=== PATIENT | female | born 1985 | race Caucasian/White ===

== ENCOUNTER 2022-09-11 11:01 | Outpatient (REF) | payer MEDICAID, SELFPAY ==
--- NOTE | ~2022-09-11 | XR_ITS ---
EXAMINATION: XR SHOULDER, LEFT CLINICAL INFORMATION: Pain COMPARISON: None TECHNIQUE: AP external rotation, Grashey, scapular Y, and axillary views of the left shoulder. FINDINGS: Bone alignment is normal. No fracture or dislocation. Normal glenohumeral joint. Arthritis at the acromioclavicular joint. Normal soft tissues. XR/XR shoulder LT min 2V IMPRESSION: Arthritis at the acromial clavicular joint.
== END 2022-09-11 11:02 | disposition home or self-care (01) ==
LOC: HO.XRAY 11:01
PROVIDERS: PCP Family Medicine; Visit Provider Family Medicine
DX: M25.512 Pain in left shoulder (principal)
CPT/HCPCS: 73030

== ENCOUNTER 2023-05-26 16:17 | Outpatient (REF) | payer MEDICAID, SELFPAY ==
[2023-05-27 02:25] LABS: Alanine Aminotransferase 36 U/L (0-31); Albumin Level 4.4 g/dL (3.5-5.0); Alkaline Phosphatase 100 U/L (39-117); Aspartate Amino Transferase 28 U/L (5-31); Bilirubin Direct 0.1 mg/dL (0.0-0.5); Bilirubin Total 0.4 mg/dL (0.0-1.0); Total Protein 7.1 g/dL (6.5-8.0)
== END 2023-05-26 16:18 | disposition home or self-care (01) ==
LOC: HO.CHCLDS 16:17
PROVIDERS: Visit Provider Internal Medicine
DX: R79.89 Other specified abnormal findings of blood chemistry (principal)
CPT/HCPCS: 36415; 80076

== ENCOUNTER 2023-07-08 10:26 | Outpatient (REF) | payer MEDICAID, SELFPAY ==
[2023-07-08 14:55] LABS: MANUAL DIFF FLAG NO
[2023-07-08 15:10] LABS: Anion Gap 11 (12-20); Basophils Absolute Auto 0.1 X10*3/uL (0.0-0.2); Basophils Percent Auto 1.2 % (0-2); Blood Urea Nitrogen 12 mg/dL (9-16); Calcium 9.5 mg/dL (8.4-10.2); Carbon Dioxide 23 mmol/L (22-29); Chloride 109 mmol/L (96-108); Eosinophils Absolute Auto 0.5 X10*3/uL (0.0-0.4); Eosinophils Percent Auto 5.9 % (0-4); Estimated Glomerular Filt Rate > 60; Glucose Fasting 73 mg/dL (60-99); Hematocrit 40.1 % (37.0-47.0); Hemoglobin 13.4 g/dl (12.0-16.0); Imm Gran Abs Auto 0.01 X10*3/uL (0.00-0.03); Imm Gran Pct Auto 0.1 % (0.0-0.4); Lymphocytes Absolute Auto 3.5 X10*3/uL (1.2-4.9); Mean Corpuscular HGB Conc 33.4 g/dl (31.0-35.0); Mean Corpuscular Hemoglobin 28.9 pg (27.0-33.0); Mean Corpuscular Volume 86.4 fL (80.0-98.0); Mean Platelet Volume 10.2 fL (9.4-12.3); Monocytes Absolute Auto 0.8 X10*3/uL (0.1-1.2); Neutrophils Absolute Auto 3.7 x10*3/uL (2.0-8.3); Neutrophils Percent Auto 42.8 % (45-73); Platelet Count 294 X10*3/uL (160-400); Potassium 3.5 mmol/L (3.3-5.1); Red Blood Count 4.64 X10*6/uL (4.20-5.50); Sodium 139 mmol/L (135-145); White Blood Count 8.6 X10*3/uL (4.8-10.8)
[2023-07-10 15:48] LABS: TS Negative Control Passed; TS Panel A 0; TS Panel B 4; TS Positive Control Passed; TSpotTB Negative (Negative)
== END 2023-07-08 10:27 | disposition home or self-care (01) ==
LOC: HO.CHCLDS 10:26
PROVIDERS: Visit Provider Internal Medicine
DX: Z11.1 Encounter for screening for respiratory tuberculosis (principal); L40.9 Psoriasis, unspecified
CPT/HCPCS: 36415; 80048; 85025; 86481

== ENCOUNTER 2023-08-08 10:36 | Outpatient (REF) | payer MEDICAID, SELFPAY ==
[2023-08-08 15:10] LABS: Cholesterol 209 mg/dL (<200); HDL Cholesterol 36 mg/dL (>40); LDL Cholesterol Calculated 158 mg/dL (<100); Triglycerides 77 mg/dL (<150)
[2023-08-09 03:57] LABS: HIV AB/AG Nonreactive (Nonreactive); HIV Num 1 0.04 S/CO (0.00-0.99); ~HepC Num1 0.04 S/CO (0.00-0.79); ~Hepatitis C Antibody Nonreactive (Nonreactive)
== END 2023-08-08 10:37 | disposition home or self-care (01) ==
LOC: HO.CHCLDS 10:36
PROVIDERS: Visit Provider Family Medicine
DX: E78.2 Mixed hyperlipidemia (principal)
CPT/HCPCS: 36415; 80061; 86803; 87389

== ENCOUNTER 2023-08-12 08:53 | Outpatient (REF) | payer MEDICAID, SELFPAY ==
--- NOTE | ~2023-08-12 | XR_ITS ---
EXAMINATION: XR LUMBOSACRAL SPINE CLINICAL INFORMATION: Lumbar back pain. COMPARISON: None available. TECHNIQUE: Three views of the lumbosacral spine. FINDINGS: Surgical hardware with interdisc spacer at L5-S1. Hardware appears intact. Facet arthritis in the lower lumbar spine. Surgical clips overlie the sacrum. Moderate spondylosis in the lower lumbar spine with moderate loss of disc space height at L3-L4 and L4-L5. Straightening of the normal lumbar lordosis. XR/XR lumbar spine 2-3V IMPRESSION: 1. Surgical hardware with interdisc spacer at L5-S1. Hardware appears intact. 2. Moderate degenerative changes at L3-L4 and L4-L5.
== END 2023-08-12 08:54 | disposition home or self-care (01) ==
LOC: HO.XRAY 08:53
PROVIDERS: PCP Family Medicine; Visit Provider Family Medicine
DX: M54.50 Low back pain, unspecified (principal)
CPT/HCPCS: 72100

== ENCOUNTER 2024-02-25 15:22 | Outpatient (REF) | payer MEDICAID, SELFPAY ==
--- NOTE | ~2024-02-25 | US_ITS ---
EXAMINATION: US PELVIS CLINICAL INFORMATION: 38-year-old woman with heavy periods. COMPARISON: None available. TECHNIQUE: Ultrasound of the pelvis is performed using both transabdominal and transvaginal transducers along with Doppler. Transvaginal imaging is performed due to inadequate visualization transabdominally. FINDINGS: Uterus: The uterus is anteverted and measures 7.2 x 4.4 x 5.3 cm. Heterogeneous uterus without discrete mass. The endometrial stripe measures 6 mm in thickness. Adnexa: The right ovary measures 2.7 x 2.0 x 2.4 cm, volume 6.7 mL. The left ovary measures 3.6 x 2.2 x 3.4 cm, volume 14 mL. Simple follicles are seen bilaterally. Normal spectral Doppler in both ovaries. US/US pelvic and transvaginal IMPRESSION: Heterogeneous uterus could represent underlying fibroid disease though no distinct measurable fibroid is seen. The endometrial stripe measures 6 mm.
== END 2024-02-25 15:23 | disposition home or self-care (01) ==
LOC: HO.HMGCX 15:22
PROVIDERS: PCP Family Medicine; Visit Provider Family Medicine
DX: N93.9 Abnormal uterine and vaginal bleeding, unspecified (principal)
CPT/HCPCS: 76830; 76856

== ENCOUNTER 2024-09-21 13:03 | Outpatient (AMB) | payer MEDICAID, SELFPAY ==
--- NOTE | 2024-09-21 13:06 | MHC.OFFVIS ---
Vital Signs 09/21/24 13:13 Height 5 ft 3 in Weight 131 lb BMI 23.2 BP 131/64 Blood Pressure Location Lt brachial Position Sitting Pulse 101 H Intake Visit Reasons: Lipoma left upper extremity Intake Note: Patient is seen in office for evaluation of a subcatenous nodule of the left elbow. 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 This has been present for several years and is now increasing in size is associated with a 2nd lesion just adjacent to the 1st. This is located in an area that frequently gets hit and becomes uncomfortable. She denies any bleeding or discharge from the site. The patient requests excision of this lesion. She denies a previous history of lipomas. [facility] Surgical History History of rhinoplasty History of back surgery Social History Alcohol intake: never Patient Tobacco Use Status: Current everyday Tobacco user Review of Systems Const All systems reviewed & are unremarkable except as noted in HPI and below Physical Exam Vital Signs: Last Vital Signs Pulse 101 H 09/21/24 13:13 BP 131/64 09/21/24 13:13 BMI result Body Mass Index 23.2 Const General: comfortable Nutritional Appearance: well nourished Orientation/consciousness: patient oriented x3 Resp Effort & Inspection: normal respiratory effort, no audible wheezes, no cough and no respiratory distress Skin Other: Warm, dry, no rash Neuro General: patient oriented x3 Extrem General: Yes no clubbing, cyanosis or edema Elbow/forearm/wrist images: 1. 2 cm soft tissue mass consistent with lipoma 2. 1.5 cm soft tissue mass consistent with lipoma Assessment & Plan Assessment & Plan (1) Lipoma of left upper extremity: Code(s): D17.22 - Benign lipomatous neoplasm of skin and subcutaneous tissue of left arm Category: Medical Plan 39-year-old female patient presenting with a soft tissue mass located in the left forearm just below the elbow. There is a 2nd lesion just adjacent to this which also feels like a lipoma. Patient occasionally has discomfort associated with the lipoma therefore is requesting excision. I recommended an excision under local anesthesia as an office based procedure. After discussion of the procedure, risks, and alternatives, she consents to the procedure which will be scheduled at her convenience. Coding Level of Care Code New Pt Level 4 (98731) Diagnoses Lipoma of left upper extremity D17.22
[2024-09-21 13:13] VITALS: BP 131/64; PULSE 101; BMI 23.2
== END 2024-09-21 13:20 | disposition home or self-care (01) ==
PROVIDERS: PCP Family Medicine; Visit Provider Surgery
DX: D17.22 Benign lipomatous neoplasm of skin and subcutaneous tissue of left arm (principal)
CPT/HCPCS: 99204

== ENCOUNTER → 2024-09-21 13:03 | Outpatient (BNVA) | payer MEDICAID, SELFPAY | PROVIDERS: PCP Family Medicine; Visit Provider Surgery | DX: D17.22 Benign lipomatous neoplasm of skin and subcutaneous tissue of left arm (principal) | CPT/HCPCS: 99202 ==

== ENCOUNTER 2024-09-30 10:58 | Outpatient (REF) | payer MEDICAID, SELFPAY | END 2024-09-30 10:59 | disposition home or self-care (01) | LOC: HO.LNP 10:58 | PROVIDERS: PCP Family Medicine; Visit Provider Surgery | DX: L72.0 Epidermal cyst (principal) | CPT/HCPCS: 11402; 88304 ==

== ENCOUNTER 2024-09-30 10:58 | Outpatient (AMB) | payer MEDICAID, SELFPAY ==
--- NOTE | 2024-09-30 11:09 | MHC.OFFVIS ---
Intake Visit Reasons: Excision Lipoma left upper extremity Intake Note: Patient is for office procedure, excision of lipoma of the left upper extremity. Pt c/o:n *Need s/p* Nursing Home Administrator Required: No Accompanied by: Self / Same As Patient Allergies No Known Allergies Allergy (Mild, Unverified 09/30/24 11:09) NONE HPI Comments Details: Patient returns for excision of the lesions of the left elbow. She denies any changes since her last visit. [facility] Surgical History History of rhinoplasty History of back surgery Social History Alcohol intake: never Patient Tobacco Use Status: Current everyday Tobacco user Physical Exam Extrem Other: Left elbow with a 2 cm and 1.5 cm soft tissue mass, possibly a lipoma or cyst. Office Procedures Excision Details: Preoperative diagnosis: Lipoma x2 left elbow Postoperative diagnosis: Epidermal inclusion cyst left elbow x2 Procedure: Excision of cyst left elbow x2 Surgeon: Urban Diaz MD Obstetrics Technician: None Anesthesia: Lidocaine 1% with epinephrine Indications for procedure: 39-year-old female with a gradually enlarging soft tissue mass x2 below the left elbow Operative findings: 2 cm and 1.5 cm epidermal inclusion cyst left elbow Specimen: Epidermal inclusion cyst left elbow x2 Estimated blood loss: Less than 1 mL Complications: None Procedure details: The patient was brought to the procedure room and placed in a supine position. The site of surgery was confirmed by the patient in the left elbow. After assuring informed consent the patient was placed in a right lateral decubitus position. The left arm was prepped with ChloraPrep and draped in a sterile fashion. Local anesthesia was then infiltrated in the longitudinal fashion directly over the palpable mass. Incision was then made with a 15 blade and carried out through subcutaneous tissue up to the wall of the cyst. Beginning with the larger more proximal cyst, sharp dissection was used using a Metzenbaum scissors to dissect this lesion from the surrounding subcutaneous tissue. A 2nd cyst located slightly distal measuring 1.5 cm was also excised again using the Metzenbaum scissors. Both lesions were passed off the table and sent to pathology for further examination. Skin was then closed using interrupted 3-0 nylon sutures. Sterile dressings consisting of a 2 x 2 gauze and Tegaderm were then applied. The patient tolerated the procedure well. She was discharged to home in stable condition. 86227-fqhma/arms/legs 1.1-2cm Procedure code (CPT) selection complete Assessment & Plan Assessment & Plan (1) Epidermal inclusion cyst: Code(s): L72.0 - Epidermal cyst Category: Medical Plan 39-year-old female patient status post excision of an epidermal inclusion cyst x2 of the left elbow 1 measuring 1.5 cm in his 2nd measuring 2 cm in diameter. She tolerated the procedure well and will return in 1 week for suture removal. Coding Level of Care Code Procedure Only Diagnoses Epidermal inclusion cyst L72.0 CPT Codes Trunk/Arms/Legs - CPT: 42272-ruckj/arms/legs 1.1-2cm ([id number])
== END 2024-09-30 11:43 | disposition home or self-care (01) ==
PROVIDERS: PCP Family Medicine; Visit Provider Surgery
DX: L72.0 Epidermal cyst (principal)
CPT/HCPCS: 11402

== ENCOUNTER 2024-10-05 09:58 | Outpatient (AMB) | payer MEDICAID, SELFPAY ==
--- NOTE | 2024-10-05 10:13 | A.OFFVIS_ITS ---
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 Patient reports she has a hard cyst on the volar aspect of her 5th digit. Her PCP prescribed her a liquid to remove this she states but the root being still inside is her concern. She states her finger is starting to slant due to it and she is unable to straighten out the finger either. Denies numbness and tingling. 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 The patient states that during that time, she was using a hammer, and struck the distal part of her left small finger. Patient states that since that time, she has been unable to extend fully at the DIP joint of the left small finger. Patient also reports that she has a wart on this finger that she is being treated for by her primary care provider. Denies any numbness or tingling in the left upper extremity. No other acute complaints or concerns at this time. [facility] Surgical History History of rhinoplasty History of back surgery Social History (Updated 10/05/24 @ 10:20 by KELLEY Dale) Alcohol intake: never Patient Tobacco Use Status: Current everyday Tobacco user Tobacco use type: Cigarette Current occupational status: unemployed Review of Systems Const All systems reviewed & are unremarkable except as noted in HPI and below Physical Exam Vital Signs: BMI result Body Mass Index 23.2 Extrem Other: Patient is alert, oriented, and in no acute distress. Neuro: Normal sensation of the tips of all digits of the left hand at this time Vascular: Cap refill brisk Pain: Patient reports some tenderness to palpation about the wart noted on the volar aspect of the middle phalanx of the left small finger No pain with range of motion ROM: Patient was unable to extend the DIP joint of the left small finger fully in the office today Patient is able to flex and extend all other digits of the left hand fully and without difficulty Skin: No lacerations or abrasions. General: No ecchymosis, erythema, or evidence of infection. Psych: Appears grossly normal Affect normal Attitude cooperative Assessment & Plan Assessment & Plan (1) Mallet finger of left hand: Code(s): M20.012 - Mallet finger of left finger(s) Category: Medical Plan 1. Mallet deformity of the left small finger Patient was discussed with Dr. Dye, and a collaborative treatment plan was formed: Due to the age of the patient's injury, the patient should be seen and evaluated by Dr. Dye at a full surgical consult appointment for discussion of treatment options available Patient was amenable to this plan In the meantime, patient was advised that she should continue with conservative pain management measures for her pain that she is experiencing Patient will follow-up for next available appointment for surgical consult with Dr. Dye, sooner with any acute concerns Coding Level of Care Code New Pt Level 3 (90666) Diagnoses Mallet finger of left hand M20.012
[2024-10-05 10:19] VITALS: BMI 23.2
== END 2024-10-05 10:40 | disposition home or self-care (01) ==
PROVIDERS: PCP Family Medicine
DX: M20.012 Mallet finger of left finger(s) (principal)
CPT/HCPCS: 99203

== ENCOUNTER → 2024-10-05 09:58 | Outpatient (BNVA) | payer MEDICAID, SELFPAY | PROVIDERS: PCP Family Medicine | DX: M20.012 Mallet finger of left finger(s) (principal) | CPT/HCPCS: 99212 ==

== ENCOUNTER 2024-10-12 09:37 | Outpatient (AMB) | payer MEDICAID, SELFPAY ==
--- NOTE | 2024-10-12 09:42 | MHC.OFFVIS ---
Vital Signs 10/12/24 09:43 Height 5 ft 3 in Weight 131 lb 0.014 oz BMI 23.2 Intake Visit Reasons: s/p Excision Lipoma left upper extremity Intake Note: This patient presents for follow-up assessment status post excision lipoma left upper extremity. Pt c/o; reports no complaints at this time. 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 She tolerated the procedure well and denies any ongoing symptoms. [facility] Surgical History History of rhinoplasty History of back surgery Social History (Updated 10/05/24 @ 10:20 by KELLEY Dale) Alcohol intake: never Patient Tobacco Use Status: Current everyday Tobacco user Tobacco use type: Cigarette Current occupational status: unemployed Physical Exam Vital Signs: BMI result Body Mass Index 23.2 Extrem Other: Incision left elbow is clean, dry, and intact without redness or discharge. Sutures removed and wounds healed. Assessment & Plan Assessment & Plan (1) Epidermal inclusion cyst: Code(s): L72.0 - Epidermal cyst Category: Medical Plan Patient returns following excision of an epidermal inclusion cyst x2 of the left elbow. She tolerated the procedure well nicely. She should follow up as needed. Coding Level of Care Code Global (58479) Diagnoses Epidermal inclusion cyst L72.0
[2024-10-12 09:43] VITALS: BMI 23.2
== END 2024-10-12 09:59 | disposition home or self-care (01) ==
PROVIDERS: PCP Family Medicine; Visit Provider Surgery
DX: L72.0 Epidermal cyst (principal)
CPT/HCPCS: 99024

== ENCOUNTER → 2024-10-12 09:37 | Outpatient (BNVA) | payer MEDICAID, SELFPAY | PROVIDERS: PCP Family Medicine; Visit Provider Surgery | DX: Z48.817 Encounter for surgical aftercare following surgery on the skin and subcutaneous tissue (principal); Z98.890 Other specified postprocedural states | CPT/HCPCS: 99212 ==

== ENCOUNTER 2024-11-17 09:25 | Outpatient (REF) | payer MEDICAID, SELFPAY ==
--- NOTE | ~2024-11-17 | XR_ITS ---
EXAMINATION: XR HAND, LEFT CLINICAL INFORMATION: M79.642 - Pain in left hand COMPARISON: None available. TECHNIQUE: PA, lateral, and oblique views of the left hand. FINDINGS: The bones and soft tissues are normal. No fracture. Alignment is anatomic. Joint spaces are maintained. No erosions or soft tissue calcifications. XR/XR hand LT min 3V IMPRESSION: Unremarkable left hand exam. Electronically signed by: Josue Olivier MD 11/22/2024 09:17 AM RASHIDA
--- OUTSIDE RECORDS SUMMARY | 2024-11-19 09:52 | XMS_ITS | Clinical Summary ---
Author Organization [employer] Address [address] [facility] 7t [place] [address] Care Team Providers Care Supervisor Publications Production Name Role Phone Erin Wilcox MD Primary Care Provider Allergies No known active allergies Medications betamethasone [...] fibrous uterus on US, has referral for PSYCHIATRIC SECRETARY in place, pending appt. Reports periods are less heavy with depo. Has upcoming appt with nurse. Future Appointments Date Time Provider Department Center 05/11/2024 1:00 PM [facility] NURSE [facility] Lumbar back pain 08/08/2023 Assessment & [...] Type Department Care Team Description 10/01/2024 Telephone appbackr Management [address] [place] [address] Jane Hassan MD 09/16/2024 Telephone [facility] MED & PEDS [address] [place], [place] [phone] Erin Wilcox MD PA Stelara Approved 09/14/2024 Orders Only [facility] MED & PEDS [address] [place], [place] [phone] Jane Hassan MD Psoriasis (Primary Dx) 09/13/2024 Telephone [place] [facility] [address] [place] [address] Erin Wilcox MD 09/07/2024 3:20 PM EST Office Visit [facility] MED & PEDS [address] [place], [place] [phone] Jane Hassan MD Callus (Primary Dx); Lipoma of left upper extremity; Trigger little finger of left hand 09/07/2024 Travel 09/06/2024 Telephone [facility] MED & PEDS [address] [place], [place] [phone] Erin Wilcox MD from Last 3 Months [...] Description 11/30/2024 9:15 AM EST Office Visit [facility] CHC MED & PEDS [address] [place] [address] Jane Hassan MD 505 [place] [address] Health Maintenance Due Date Last Done Comments [...] 6 AM EST 09/30/2024 12:03 PM EST [facility] LABS - 10/01/2024 5:00 PM EST ----- ------- Name: Selam Douglass ?Age/Sex: 39/F ? : 1985 Unit#: [id number] ?? Attend Dr: Urban Diaz MD ?Re09/30/24 ?Status: DEP REF ? Location: HO.LNP ?Disch: ? ----- ------- SPEC : [id number] ? RECD: 09/30/24 ? STATUS: ??SOUT ? REQ NUM: [id number] ? MARS: 09/30/24114 ? SUBM DR: Urban [...] containing white-yellow cheesy and keratotic material. ??A financial representative section from each is submitted in a cassette labeled A1. CEDS Copies To: ?? Urban Diaz MD ?? [facility] ?? [address] ?? [place] [id number] ?? [phone] ?? Erin Wilcox MD ?? [address] ?? [place] ?? [phone] ? CONTINUED ON NEXT PAGE ----- ------- Name: Selam Douglass ?Age/Sex: 39/F ? : 1985 Unit#: [id number] ?? Attend Dr: Urban Diaz MD ?Re09/30/24 ?Status: DEP REF ? Location: HO.LNP ?Disch: ? ----- ------- SPEC : [id number] ? RECD: 09/30/24-3 ? STATUS: ??SOUT ? REQ NUM: [id number] ? MARS: 09/30/24-1146 ? SUBM DR: Urban Diaz MD ? ENTERED: ??09/30/24-3 ?SP TYPE: Surgical ? OTHR DR: Erin Wilcox MD ? ORDERED: ??Gross Micro L3 ? ----- ------- Signed (signature on file) Surjit Galeano MD 10/01/24 5237 ? ----- ------- ? END OF REPORT ? us Generic External Data Provider LAB CYTOLOGY SARWATE RABLES Final Result Performing Organization Address [facility] Co de Phone Number [facility] [address] [place] [phone] * Hepatitis C Ab (08/08/2023 10:39 AM EDT) Pathologist [facility] Hepatitis C Antibody Nonreactive Nonreactive [facility] Comment:Antibodies to HCV no t detected; does not exclude early acuteHCV infection. Blood Venous blood specimen / Unknown 08/08/2023 10:39 AM EDT 08/08/2023 2:46 PM EDT us Erin Wilcox MD LAB BLOOD ORDERABLES Final Re sult Performing Organization Address [facility] de Phone Number [facility] [address] [place] [phone] * HIV Ab/Ag ([facility]) (08/08/2023 10:39 AM EDT) Pathologist [facility] HIV AB/AG Nonreactive Nonreactive [facility] Comment:HIV-1 p24 Ag and/or HIV-1/HIV-2 Ab not detected.A test result that is nonreactive does not exclude thepossibility of exposure to or infection with HIV-1 and/orHIV-2. Nonreactive results in this assay for individualswith prior exposure to HIV-1 and/or HIV-2 may be due toantigen and antibody levels that are below the limit ofdetection of this assay.The [employer] HIV Ag/Ab Combo assay result andsupplemental assay results should be interpreted inconjunction with the patient's clinical presentation,history and other laboratory results. If the results areinconsistent with clinical evidence, additional testing issuggested to confirm the result. 08/08/2023 10:3 9 AM EDT 08/08/2023 2:46 PM EDT us Erin Wilcox MD LAB BLOOD ORDERABLES Final Re sult Performing Organization Address [facility] Co de Phone Number [facility] [address] [place] [phone] * (ABNORMAL) Lipid Panel, Standard (08/08/2023 10:39 AM EDT) Triglycerides 77 <150 mg/dL [facility] Comment:Desirable Triglyceri de: less than 150 mg/dLBorderline High Triglyceride 150-199 mg/dLHigh Triglyceride: 200-499 mg/dLVery High Triglyceride: greater than or equal to 5OO mg/dL Cholesterol 209(H) <200 mg/dL [facility] Comment:Desirable Cholestero l: less than 200 mg/dLBorderline High Cholesterol: 200-239 mg/dLHigh Cholesterol: greater than 239 mg/dL LDL Cholesterol Calculated 158(H) <100 mg/dL [facility] Comment:Desirable LDL: less than 100 mg/dLNear Optimal/Above Optimal LDL: 110- 129 mg/dLBorderline High LDL: 130-159 mg/dLHigh LDL: 160-189 mg/dLVery High LDL: greater than or equal to 190 mg/dL HDL Cholesterol 36(L) >40 mg/dL [facility] Comment:Desirable HDL: great er than 40 mg/dL Note: This HDL assay may give artificially low results in patients with liver disease. Blood Venous blood specimen / Unknown 08/08/2023 10:39 AM EDT 08/08/2023 2:46 PM EDT us Erin Wilcox MD LAB BLOOD ORDERABLES Final Re sult Performing Organization Address [facility]/ZIP Co de Phone Number [facility] [address] [place] [phone] * THINPREP TIS PAP AND HPV [...] with computer assisted technology. CONVERTED LEGACY LABS Carbonating Stone Cleaner : SEE COMMENT CONVERTED LEGACY LABS Comment: [place], CT(ASCP) CT screening location: [address] ??[phone] HPV nRNA E6/E7 Not Detected Not Detected [facility]VERT[facility]GAC[facility] LABS Comment: Methodology: Car Stower-Mediated Amplification This assay detects E6/E7 viral messenger RNA (mRNA) from 14 high-risk HPV types (16,18,31,33,35,39,45,51,52,56,58,59,66,68). ? Cervical sources are required for HPV testing. If a vaginal source from a patient who has had a total hysterectomy with removal of cervix was ?? submitted, please contact the testing laboratory for alternative testing options. ?? For additional information, please refer to http://education.Thanx/faq/AGG447l1 (This link if provided for information/ educational [...] Most Recently Relevant to Health Maintenance Insurance [facility] MEDICAID STAND ADULT * Guarantor: Selam Douglass Account Type Relation to Patient Date of Phone Billing Address Personal/Family Self [address] [place] Care Teams Supervisor Publications Production Relationship Specialty Start Date End Date Erin Wiclox MD [address] [place] [phone] PCP - General Family Medicine 07/31/22
--- OUTSIDE RECORDS SUMMARY | 2024-11-19 09:52 | XMS_ITS | Encounter Summary ---
Author Organization [facility] [employer] Address [address] [place] [address] 7t [place] [address] Care Team Providers Care Crop Ranch Hand Name Role Phone Erin Wilcox MD Primary Care Provider [phone] Encounter Details Date Type Department Care Team (Late Contact Info) Description 10/29/[address] [facility] ADULT DENTAL [address] [place], [place] [phone] Jaz Zhang DMD Social History Tobacco Use [...] Description 11/30/2024 9:15 AM EST Office Visit [facility] MED & PEDS [address] [place], [place] [phone] Jane Hassan MD 505 [place], [place] [phone] documented as of this encounter Visit Diagnoses Not on filedocumented in this encounter Additional Health Concerns Assessment Noted Time PHQ-9 Depression Total Score: 2 08/08/20 23 10:07 AM EDT documented as of this encounter Care Teams Crop Ranch Hand Relationship Specialty Start Date End Date Erin Wilcox MD [address] [place] [address] PCP - General Family Medicine 07/31/22 documented as of this encounter
--- OUTSIDE RECORDS SUMMARY | 2024-11-19 09:52 | XMS_ITS | Encounter Summary ---
Author Organization [facility] [employer] [facility] Address [address] [place] [address] 7 [place] [address] Care Team Providers Care Hydro Station Supervisor Name Role Phone Erin Wilcox MD Primary Care Provider [phone] Encounter Details Date Type Department Care Team (Late Contact Info) Description 07/18/2023 Abstract [facility] ADULT DENTAL [address] [place], [place] [phone] Sveta Avelar DDS [address] [place] [address] Social History Tobacco Use Types Packs/Day Years [...] Description 11/30/2024 9:15 AM EST Office Visit [facility] MED & PEDS [address] [place], [place] [phone] Jane Hassan MD [address] [place], [place] [phone] documented as of this encounter Visit Diagnoses Not on filedocumented in this encounter Care Teams Hydro Station Supervisor Relationship Specialty Start Date End Date Erin Wilcox MD [address] [place] [address] PCP - General Family Medicine 07/31/22 documented as of this encounter
--- OUTSIDE RECORDS SUMMARY | 2024-11-19 09:53 | XMS_ITS | Encounter Summary ---
Author Organization [employer] Address [address] [place] [address] 7t [place] [address] Care Team Providers Care Division Leader Name Role Phone Erin Wilcox MD Primary Care Provider [phone] Encounter Details Date Type Department Care Team (Latest Contact Info) Description 09/07/2019 Abstract [facility] CONVERSIONS Dental, Provider, DDS Social [...] Description 11/30/2024 9:15 AM EST Office Visit [facility] CHC MED & PEDS [address] [place] [address] Jane Hassan MD [address] [place] [address] documented as of this encounter Visit Diagnoses Not on filedocumented in this encounter Care Teams Division Leader Relationship Specialty Start Date End Date Erin Wilcox MD [address] [place] [address] PCP - General Family Medicine 07/31/22 documented as of this encounter
--- OUTSIDE RECORDS SUMMARY | 2024-11-19 09:53 | XMS_ITS | Encounter Summary ---
Author Organization [employer] Address [address] [place] [address] 7t [place] [address] Care Team Providers Care Ceo & Board Director Name Role Phone Erin Wilcox MD Primary Care Provider [phone] Encounter Details Date Type Department Care Team (Latest Contact Info) Description 07/31/2022 Abstract [facility] CONVERSIONS Dental, Provider, DDS Social [...] 9:15 AM EST Office Visit [facility] CHC MED & PEDS [address] [place] [address] Jane Hassan MD [address] [place] [address] documented as of this encounter Visit Diagnoses Not on filedocumented in this encounter Care Teams Ceo & Board Director Relationship Specialty Start Date End Date Erin Wilcox MD [address] [place] [address] PCP - General Family Medicine 07/31/22 documented as of this encounter
--- OUTSIDE RECORDS SUMMARY | 2024-11-19 09:53 | XMS_ITS | Encounter Summary ---
Author Organization [employer] Address [address] [place] [address] 7t [place] [address] Care Team Providers Care Bilingual Branch Manager Name Role Phone Erin Wilcox MD Primary Care Provider [phone] Encounter Details Date Type Department Care Team (Latest Contact Info) Description 08/07/2020 Abstract [facility] CONVERSIONS Dental, Provider, DDS Social [...] Description 11/30/2024 9:15 AM EST Office Visit [facility] CHC MED & PEDS [address] [place] [address] Jane Hassan MD [address] [place] [address] documented as of this encounter Visit Diagnoses Not on filedocumented in this encounter Care Teams Bilingual Branch Manager Relationship Specialty Start Date End Date Erin Wilcox MD [address] [place] [address] PCP - General Family Medicine 07/31/22 documented as of this encounter
--- OUTSIDE RECORDS SUMMARY | 2024-11-19 09:53 | XMS_ITS | Encounter Summary ---
Author Organization [employer] Address [address] [place] [address] 7t [place] [address] Care Team Providers Care Animal Shelter Supervisor Name Role Phone Erin Wilcox MD Primary Care Provider [phone] Encounter Details Date Type Department Care Team (Latest Contact Info) Description 07/25/2021 Abstract [facility] CONVERSIONS Dental, Provider, DDS Social History Tobacco [...] Description 11/30/2024 9:15 AM EST Office Visit [facility] CHC MED & PEDS [address] [place] [address] Jane Hassan MD [address] [place] [address] documented as of this encounter Visit Diagnoses Not on filedocumented in this encounter Care Teams Animal Shelter Supervisor Relationship Specialty Start Date End Date Erin Wilcox MD [address] [place] [address] PCP - General Family Medicine 07/31/22 documented as of this encounter
--- OUTSIDE RECORDS SUMMARY | 2024-11-19 09:53 | XMS_ITS | Encounter Summary ---
Author Organization [employer] Address [address] [facility] 7t [place] [address] Care Team Providers Care Provider Network Manager Name Role Phone Erin Wilcox MD Primary Care Provider [phone] Encounter Details Date Type Department Care Team (Late st Contact Info) Description 09/14/2024 Orders Only [facility] CHC MED & PEDS [address] [place], [place] [phone] Jane Hassan MD 505 [place], [place] [phone] Psoriasis (Primary Dx) Social History Tobacco Use [...] Description 11/30/2024 9:15 AM EST Office Visit [facility] MED & PEDS [address] [place], [place] [phone] Jane Hassan MD [address] [place], [place] [phone] Scheduled Orders Name Type Priority Associated Diagnoses [...] 6 AM EST 09/30/2024 12:03 PM EST [facility] LABS - 10/01/2024 5:00 PM EST ----- ------- Name: Selam Douglass ?Age/Sex: 39/F ? : 1985 Unit#: [id number] ?? Attend Dr: Urban Diaz MD ?Re09/30/24 ?Status: DEP REF ? Location: HO.LNP ?Disch: ? ----- ------- SPEC : [id number] ? RECD: 09/30/24-1203 ? STATUS: ??SOUT ? REQ NUM: [id number] ? MARS: 09/30/24-1146 ? SUBM DR: Urban [...] containing white-yellow cheesy and keratotic material. ??A disability representative section from each is submitted in a cassette labeled A1. CEDS Copies To: ?? Urban Diaz MD ?? [facility] General Surgeons ?? [address] ?? [place] [address] ?? [phone] ?? Erin Wilcox MD ?? [address] ?? [place] [address] ?? [phone] ? CONTINUED ON NEXT PAGE ----- ------- Name: Selam Douglass ?Age/Sex: 39/F ? : 1985 Unit#: [id number] ?? Attend Dr: Urban Diaz MD ?Re09/30/24 ?Status: DEP REF ? Location: HO.LNP ?Disch: ? ----- ------- SPEC : [id number] ? RECD: 09/30/24-1203 ? STATUS: ??SOUT ? REQ NUM: [id number] ? MARS: 09/30/24-1146 ? SUBM DR: Urban Diaz MD ? ENTERED: ??09/30/24-1213 ?SP TYPE: Surgical ? OTHR DR: Erin Wilcox MD ? ORDERED: ??Gross Micro L3 ? ----- ------- Signed (signature on file) Surjit Galeano MD 10/01/24 1700 ? ----- ------- ? END OF REPORT ? us Generic External Data Provider LAB CYTOLOGY MONTSE BURCIAGA Final Result [facility] [address] [place] [phone] documented in this encounter Visit Diagnoses Diagnosis Psoriasis- Primary Other psoriasis documented in this encounter Additional Health Concerns Assessment Noted Time PHQ-9 Depression Total Score: 2 08/08/20 23 10:07 AM EDT documented as of this encounter Care Teams Provider Network Manager Relationship Specialty Start Date End Date Erin Wilcox MD [address] [place] [address] PCP - General Family Medicine 07/31/22 documented as of this encounter
== END 2024-11-17 09:26 | disposition home or self-care (01) ==
LOC: HO.HOSX 09:25
PROVIDERS: Visit Provider Orthopaedic Surgery
DX: M79.642 Pain in left hand (principal); M20.012 Mallet finger of left finger(s); R22.32 Localized swelling, mass and lump, left upper limb
CPT/HCPCS: 73130; 99202

== ENCOUNTER 2024-11-17 09:49 | Outpatient (AMB) | payer MEDICAID, SELFPAY ==
[2024-11-17 10:15] VITALS: BMI 23.2
--- NOTE | 2024-11-17 10:15 | MHC.OFFVIS ---
Vital Signs 11/17/24 10:15 Height 5 ft 3 in Weight 131 lb BMI 23.2 Intake Visit Reasons: OV- L SF mallet, Surgical consult Intake Note: Selam 39 yr old right hand dominant female presents today for a surgical consult for her Mallet small finger of left hand. Last seen with Drake. Patient states she also has a cyst/wart that has increased in size for the last 3-4 yrs. Allergies No Known Allergies Allergy (Mild, Unverified 11/17/24 10:18) NONE HPI HPI OV- L SF mallet, Surgical consult: Details: Selam is a 39 year old right hand dominant woman who presents to discuss her left small finger mass. Her chief complaint today is of a cyst/wart/mass on the volar aspect of the left small finger, that has been bothering her for several years. She has been trying to have this removed with topical treatment. She has been seen by Dermatology for this, and she says they referred her here to discuss possible surgical intervention. She also says she struck the tip of her small finger while gardening, sometime in ~03/2024. Since that injury she has not been able to fully extend her small finger DIP joint. She complains of [ ]. 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 Review of Systems Const All systems reviewed & are unremarkable except as noted in HPI and below Physical Exam Vital Signs: BMI result Body Mass Index 23.2 Const General: cooperative, healthy appearing and no acute distress Orientation/consciousness: patient oriented x3 HEENT Head: Yes normocephalic and Yes atraumatic Eyes EOM: EOMs intact bilaterally Resp Effort & Inspection: normal respiratory effort and able to speak in complete sentences Cardio Jugular venous distension: no JVD Skin General skin exam: turgor normal Rashes: no rashes Neuro General: patient oriented x3 Extrem Other: Evaluation of Left Upper Extremity: The patient is alert, oriented, and in no acute distress Neuro: Median, Ulnar, Radial nerves motor and sensory intact and sensation is normal to the tips of all digits Vascular: Cap refill brisk ROM: She can bring all her fingers closed to a fist and back into extension She is limited in her small finger extension at the DIP joint, with an extensor lag of ~25 degrees. Passively reducible Skin: No lacerations or abrasions. General: No Ecchymosis. No Erythema or evidence of infection. There is a soft tissue mass on the volar surface at the middle phalanx level, measuring ~5mm in diameter. This is white, thickened, raised, and feels like it goes deep to the skin, and has a root of sorts. Radiographs: 3 views of the left hand, with attention to the small finger, were taken and viewed by me today in clinic. They show no fractures or dislocations. No foreign body, no bony masses or involvement of bone in the small finger Psych Appearance: grossly normal Affect: normal affect Attitude: cooperative Assessment & Plan Assessment & Plan (1) Mallet finger of left hand: Comment: SF Code(s): M20.012 - Mallet finger of left finger(s) Category: Medical (2) Mass of finger of left hand: Comment: SF Code(s): R22.32 - Localized swelling, mass and lump, left upper limb Category: Medical Plan Assessment & Plan: 1. Left small finger soft tissue mass ~5mm in diameter I educated her about this condition I discussed operative and non-operative treatment options She has found limited improvement with topical treatment given to her by Dermatology The patient would like to proceed with surgery The risks and benefits of operative treatment were discussed with the patient and the patient wishes to proceed with surgery. These risks include, but are not limited to risk of damage to blood vessels, nerves, tendons, infection, recurrence, incomplete relief of preoperative symptoms, persistent pain, possible need for further surgery and the risks associated with regional blocks and anesthesia. The plan is to take the patient to the operating room sometime in the next few weeks for the following procedures: 1. Left small finger mass excisional biopsy, under general All of the preoperative paperwork including the consent was reviewed today. All the patient's questions were answered. The patient understands that they will be contacted by our marine photographer soon to schedule this procedure She denies Diabetes, blood thinners, asthma, heart, lung, kidney issues 2. Left small finger tendinous mallet deformity From an injury in ~03/2024 I educated her about this condition I discussed operative and non-operative treatment options We will wait until she has recovered from her surgery before considering treatment options Scribed for Pat Dye MD by Kingsley Cuevas, medical practice administrator, on 11/17/24 at 10:30 AM, EST. Orders: Orders XR hand LT min 3V Today M79.642 - Pain in left hand Coding Level of Care Code New Pt Level 4 (57302) Diagnoses Mallet finger of left hand M20.012 Mass of finger of left hand R22.32
--- OUTSIDE RECORDS SUMMARY | 2024-11-17 10:35 | XMS_ITS | Clinical Summary ---
Author Organization [employer] Address [address] 7[address] [place] [address] Care Team Providers Care Airport Location Manager Name Role Phone Erin Wilcox MD Primary Care Provider [phone] Allergies No known active allergies Medications betamethasone dipropionate (Diprolene) 0.05 % ointment APPLY A THIN LAYER TO THE AFFECTED AREA(s) TWICE DAILY 09/10/20 22 Active calcipotriene (Dovonex) 0.005 % ointment APPLY A THIN LAYER TO THE AFFECTED AREA(s) DAILY, RUB IN gently AND completely 08/07/20 22 Active rosuvastatin (Crestor) 10 MG tabletIndications: Mixed hyperlipidemia TAKE ONE TABLET EVERY MORNING 90 tablet 1 05/08/20 23 Active triamcinolone (Kenalog) 0.1 % ointmentIndication s:Psoriasis Apply topically 2 times daily. 453.6 g 11 07/08/20 23 Active Otezla 30 MG tablet Take 30 mg by mouth every 12 (twelve) hours. 10/22/19 23 Active diclofenac (Cataflam) 50 MG tablet Take 1 tablet (50 mg) by mouth 3 times daily. 90 tablet 08/08/20 23 Active medroxyPROGESTERon e (Depo-Provera) 150 MG/ML injection Inject 1 mL (150 mg) into the shoulder, thigh, or buttocks every 3 (three) months. 1 mL 3 02/23/20 24 Active Multiple Vitamin (multivitamin) tablet Take 1 tablet by mouth Once per day. 90 tablet 3 02/23/20 24 Active Stelara injectionIndicatio ns:Psoriasis INJECT 45 MG SUBCUTANEOUSLY ON DAY 0 AND REPEAT ON DAY 30 0.5 mL 1 07/30/20 24 Active ustekinumab (Stelara) 45 MG/0.5ML injectionIndicatio ns:Psoriasis Inject 0.5 mL (45 mg) under the skin every 3 (three) months. 0.5 mL 3 07/30/20 Active salicylic acid-lactic acid 17 % external solutionIndication s:Callus Apply topically Once per day. 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 Reports periods are less heavy with depo. Has upcoming appt with nurse. Future Appointments Date Time Provider Department Center 05/11/2024 1:[address] [facility] [place] NURSE [facility] Lumbar back pain 08/08/2023 Assessment & Plan (08/08/2023 10:23 AM EDT): Patient that presented visit with complaints of lower back pain will be sent for Lumbar X-Rays. Will be prescribing Diclofenac to control and moderate the pain. Referred to Pain Management. Follow up in 2 months. Encounter for health-related screening Assessment & Plan (08/08/2023 10:24 AM EDT): Patient will be sent for labs: HIV-1/2, HepC. Psoriasis 09/12/2022 Mixed hyperlipidemia 09/12/2022 Assessment & Plan (08/08/2023 10:24 AM EDT): Patient will be sent for labs: Lipid Panel. Other eosinophilia 09/12/2022 Encounters Date Type Department Care Team Description 10/01/2024 Telephone [facility] [address] [place] [phone] Jane Hassan MD 09/16/2024 Telephone [facility] [address] [place], [place] [phone] Erin Wilcox MD PA Stelara Approved 09/14/2024 Orders Only [facility] [address] [place], [place] [phone] Jane Hassan MD Psoriasis (Primary Dx) 09/13/2024 Telephone [place] [facility] [address] [place] [address] Erin Wilcox MD 09/07/2024 3:20 PM EST Office Visit [facility] [address] [place], [place] [phone] Jane Hassan MD Callus (Primary Dx); Lipoma of left upper extremity; Trigger little finger of left hand 09/07/2024 Travel 09/06/2024 Telephone [facility] [address] [place], [place] [phone] Erin Wilcox MD from Last 3 Months Immunizations Name Administration Dates Next Due Influenza injectable quadrivalent preservative f ree 11/18/2017 Influenza, IIV3, injectable 07/06/2013 Tdap 07/06/2013 Social History Tobacco Use Types Packs/Day Years Used Date Smoking Tobacco: Every Day Cigarettes Smokeless Tobacco: Never Tobacco Cessation:Ready to Q uit: Not Asked; Counseling Given: Not Answered Alcohol Use Standard Drinks/Week Comments Never 0 (1 standard drink = 0.6 oz pur e alcohol) Depression Answer Date Recorded Patient Health Questionnaire-9 Score 2 08/08/2023 Patient Health Questionnaire-9 Score 2 08/08/2023 Last PHQ-9: Questionnaire Data Not on file 1 Housing Stability Answer Date Recorded What is your housing situation today? I have jefferson morel 02/13/[address] you li ve. Do you have problems with any of the following? None of the above 02/13/2024 Food Insecurity Answer Date Recorded Within the past 12 months, y ou worried that your food would run out before you got money to buy more: Never True 02/13/2024 Within the past 12 months,th e food you bought just didn't last and you didn't have enough money to get more: Never True 12/2023 Transportation Answer Date Recorded In the past 12 months, has l ack of transportation kept you from medical appts, meetings, work or from getting things needed for daily living? No 02/13/2024 Utilities Answer Date Recorded In the past 12 months, has t he electric, gas, oil or water company threatened to shut off services in your home? No 02/13/2024 Depression Answer Date Recorded Patient Health Questionnaire-2 Score 2 08/08/2023 Comments Unknown Sex and Gender Information Value Date Recorded Sex Assigned at Female 08/12/2022 10:23 AM EDT Legal Sex Female 10:23 AM EDT Gender Identity Female 08/12/2022 10:23 AM EDT Sexual Orientation Straight 08/12/2022 10 :23 AM EDT Last Filed Vital Signs Vital Sign Reading Time Taken Comments Blood Pressure 132/72 09/07/2024 3:10 PM EST Pulse 112 09/07/2024 3:10 PM EST Temperature 36 ??C (96.8 ??F) 09/07/2024 3:10 PM EST Respiratory Rate 12 09/07/2024 3:10 PM EST Oxygen Saturation 98% 09/07/2024 3:10 PM EST Inhaled Oxygen Concentration - - Weight 59.1 kg (130 lb 3.2 oz) 09/07/2024 3:10 P M EST Height 159 cm (5' 2.6 ) 09/07/2024 3:10 PM EST Body Mass Index 23.36 09/07/2024 3:10 PM EST Plan of Treatment Upcoming Encounters Date Type Department Care Team (Late st Contact Info) Description 11/30/2024 9:15 AM EST Office Visit [facility] [address] [place] [address] Jane Hassan MD [address] [place] [address] Health Maintenance Due Date Last Done Comments Alcohol/Substance Use Screening 1996 Family Planning (PISQ) 1999 Hepatitis B Vaccines (1 of 3 - 19+ 3-dose series) 2003 Pneumococcal Vaccine: Pediatrics (0 to 5 Years) and At-Risk Patients (6 to 49) Years) (1 of 2 - PCV) 2003 Dental Oral Exam 01/30/2023 07/31/2022 Dental Prophylaxis 02/06/2023 08/07/2022 DTaP/Tdap/Td Vaccines (2 - T d or Tdap) 07/06/2023 07/06/2013 Dental X-Ray: Bitewings 08/01/2023 07/31/2022 Mammogram 2024 COVID-19 Vaccine (3 - 2023-2 5 season) 2024 07/10/2021, 06/12/2021 Influenza Vaccine (#1) 2024 8, 07/06/2013 Dental X-Ray: Full Mouth 06/27/2024 06/26/2021 Depression Screening 08/08/2024 08/08/2023, 08/08/2023 SDOH Screening 02/12/2025 02/13/2024 Pap Smear 08/27/2025 08/27/2022 Tobacco Screening 09/07/2025 09/07/2024 Cervical Cancer Screening 08/27/2027 HPV/Cotest 08/27/2027 08/27/2022, 07/28/2017 Lipid Panel 08/08/2028 08/08/2023, 09/11/2022 Zoster Vaccines (1 of 2) 2034 RSV Patients and Patients Aged 60 years or older (1 - 1-dose 75+ series) 2059 HIV Screening Completed 08/08/2023 Hepatitis C Screening Completed 08/08/2023 HIB Vaccines Aged Out No longer eligi ble based on patient's age to complete this topic HPV Vaccines Aged Out No longer eligi ble based on patient's age to complete this topic Hepatitis A Vaccines Aged Out No long er eligible based on patient's age to complete this topic IPV Vaccines Aged Out No longer eligi ble based on patient's age to complete this topic Meningococcal Vaccine Aged Out No june praveen eligible based on patient's age to complete this topic RSV under 20 months Aged Out No longe r eligible based on patient's age to complete this topic Rotavirus Vaccines Aged Out No longer eligible based on patient's age to complete this topic Procedures Procedure Name Priority Date/Time Associated Diagnosis Comments GROSS AND MICROSCOPIC LEVEL 3 Routine 09/30/2024 11:46 AM EST Psoriasis HEPATITIS C ANTIBODY Routine 08/08/2023 10:39 AM EDT Encounter for health-related screening HIV ANTIBODY/ANTIGEN ([place] DPH) Routine 08/08/2023 10:39 AM EDT LIPID PANEL, STANDARD Routine 08/08/2023 10:39 AM EDT Mixed hyperlipidemia THINPREP IMAGING PAP AND HPV MRNA E6/E7 WITH REFLEX TO HPV 16,18/45 Routine 08/27/2022 10:42 AM EST from Last 3 Months or Most Recently Relevant to Health Maintenance Results * Gross and Microscopic Level 3 (09/30/2024 11:46 AM EST) 09/30/2024 11:4 6 AM EST 09/30/2024 12:03 PM EST [facility] LAB[facility] - 10/01/2024 5:00 PM EST ----- ------- Name: Selam Doulgass ?Age/Sex: 39/F ? : 1985 Unit#: [id number] ?? Attend Dr: Urban Diaz MD ?Re09/30/24 ?Status: DEP REF ? Location: HO.LNP ?Disch: ? ----- ------- SPEC : [id number] ? RECD: 09/30/24 ? STATUS: ??SOUT ? REQ NUM: [id number] ? MARS: 09/30/24114 ? SUBM DR: Urban Diaz MD ? ENTERED: ??09/30/243 ?SP TYPE: Surgical ? OTHR DR: Erin Wilcox MD ? ORDERED: ??Gross Micro L3 ? Diagnosis ?? Soft tissue, left elbow, excision: ?- Epidermal inclusion cyst. ?- Fibrous tissue with pseudocyst formation, chronic inflammation and scattered ?? keratinaceous debris. ??See comment. ? Comment: One of the cysts does not have an epithelial lining; however, the overall ?? features are that of an inflamed epidermal inclusion cyst. ?Clinical History Epidermal inclusion cyst left elbow ?Microscopic Description Microscopic sections reviewed. ? Material Received ?? Epidermal inclusion cyst left elbow x 2 ? Gross Description Received in formalin labeled ?epidermal cyst left upper extremity are 2 smooth and shaggy, pearly, fung-white nodules measuring 1.0 and 1.5 cm in greatest dimension with scant attached soft tissue. ??No skin is identified. ??The margins are inked and each portion of tissue is sectioned to reveal a thin-walled muñiz-white cyst containing white-yellow cheesy and keratotic material. ??A credit resolution representative section from each is submitted in a cassette labeled A1. CEDS Copies To: ?? Urban Diaz MD ?? [facility] ?? [address] ?? [place] [address] ?? [phone] ?? Erin Wilcox MD ?? [address] ?? [place] ?? [phone] ? CONTINUED ON NEXT PAGE ----- ------- Name: Selam Douglass ?Age/Sex: 39/F ? : 1985 Unit#: [id number] ?? Attend Dr: Urban Diaz MD ?Re09/30/24 ?Status: DEP REF ? Location: HO.LNP ?Disch: ? ----- ------- SPEC : [id number] ? RECD: 09/30/24-3 ? STATUS: ??SOUT ? REQ NUM: [id number] ? MARS: 09/30/24-1146 ? SUBM DR: Urban Diaz MD ? ENTERED: ??09/30/24-3 ?SP TYPE: Surgical ? OTHR DR: Erin Wilcox MD ? ORDERED: ??Gross Micro L3 ? ----- ------- Signed (signature on file) Surjit Galeano MD 10/01/24 1602 ? ----- ------- ? END OF REPORT ? us Generic External Data Provider LAB CYTOLOGY SARWATE RABLES Final Result Performing Organization Address [facility] Co de Phone Number [facility] [address] [place] [phone] * Hepatitis C Ab (08/08/2023 10:39 AM EDT) Pathologist [facility] Hepatitis C Antibody Nonreactive Nonreactive [facility] Comment:Antibodies to HCV no t detected; does not exclude early acuteHCV infection. Blood Venous blood specimen / Unknown 08/08/2023 10:39 AM EDT 08/08/2023 2:46 PM EDT us Erin Wilcox MD LAB BLOOD ORDERABLES Final Re sult Performing Organization Address [facility] de Phone Number [facility] [address] [place] [phone] * HIV Ab/Ag ([facility]) (08/08/2023 10:39 AM EDT) Pathologist [facility] HIV AB/AG Nonreactive Nonreactive [facility] Comment:HIV-1 p24 Ag and/or HIV-1/HIV-2 Ab not detected.A test result that is nonreactive does not exclude thepossibility of exposure to or infection with HIV-1 and/orHIV-2. Nonreactive results in this assay for individualswith prior exposure to HIV-1 and/or HIV-2 may be due toantigen and antibody levels that are below the limit ofdetection of this assay.The [employer]i Connect AliniCLIPPATE HIV Ag/Ab Combo assay result andsupplemental assay results should be interpreted inconjunction with the patient's clinical presentation,history and other laboratory results. If the results areinconsistent with clinical evidence, additional testing issuggested to confirm the result. 08/08/2023 10:3 9 AM EDT 08/08/2023 2:46 PM EDT us Erin Wilcox MD LAB BLOOD ORDERABLES Final Re sult Performing Organization Address [facility] Co de Phone Number [facility] [address] [place] [phone] * (ABNORMAL) Lipid Panel, Standard (08/08/2023 10:39 AM EDT) Triglycerides 77 <150 mg/dL [facility] Comment:Desirable Triglyceri de: less than 150 mg/dLBorderline High Triglyceride 150-199 mg/dLHigh Triglyceride: 200-499 mg/dLVery High Triglyceride: greater than or equal to 5OO mg/dL Cholesterol 209(H) <200 mg/dL [facility] Comment:Desirable Cholestero l: less than 200 mg/dLBorderline High Cholesterol: 200-239 mg/dLHigh Cholesterol: greater than 239 mg/dL LDL Cholesterol Calculated 158(H) <100 mg/dL [facility] Comment:Desirable LDL: less than 100 mg/dLNear Optimal/Above Optimal LDL: 110- 129 mg/dLBorderline High LDL: 130-159 mg/dLHigh LDL: 160-189 mg/dLVery High LDL: greater than or equal to 190 mg/dL HDL Cholesterol 36(L) >40 mg/dL [facility] Comment:Desirable HDL: great er than 40 mg/dL Note: This HDL assay may give artificially low results in patients with liver disease. Blood Venous blood specimen / Unknown 08/08/2023 10:39 AM EDT 08/08/2023 2:46 PM EDT us Erin Wilcox MD LAB BLOOD ORDERABLES Final Re sult Performing Organization Address [facility]/ZIP Co de Phone Number [facility] [address] [place] [phone] * THINPREP TIS PAP AND HPV mRNA E6/E7 WITH REFLEX TO HPV 16,18/45 (08/27/2022 10:42 AM EST) Clinical Information: None given [facility] COMMENT SEE COMMENT [facility] Comment: EXPLANATORY NOTE: ? The Pap is a screening test for cervical cancer. It is ?? not a diagnostic test and is subject to false negative ?? and false positive results. It is most reliable when a ?? satisfactory sample, regularly obtained, is submitted ?? with relevant clinical findings and history, and when ?? the Pap result is evaluated along with historic and ?? current clinical information. ?? COMMENT: This Pap test has been evaluated with computer assisted technology. [facility] Business Performance Manager : SEE COMMENT [facility] Comment: [place], CT(ASCP) CT screening location: [address] ??[phone] HPV nRNA E6/E7 Not Detected Not Detected [facility] Comment: Methodology: Early Head Start Director-Mediated Amplification This assay detects E6/E7 viral messenger RNA (mRNA) from 14 high-risk HPV types (16,18,31,33,35,39,45,51,52,56,58,59,66,68). ? Cervical sources are required for HPV testing. If a vaginal source from a patient who has had a total hysterectomy with removal of cervix was ?? submitted, please contact the testing laboratory for alternative testing options. ?? For additional information, please refer to http://education.[employer]/faq/HMN914y4 (This link if provided for information/ educational purposes only.) Interpretation/R esult: Negative for intraepithelial lesion or malignancy. [facility] LMP: 08/19 [facility] Prev. BX: NONE GIVEN [facility] Prev. PAP: 2017 NIL/NEG [facility] SOURCE: None given [facility] Statement Of Adequacy: SEE COMMENT [facility] Comment: Satisfactory for evaluation. Endocervical/transformation zone component absent. 08/27/2022 10:4 2 AM EST Mechelle Thompson CNM LAB PATHOLOGY ORDERABLES Final Result [facility] from Last 3 Months or Most Recently Relevant to Health Maintenance Insurance [facility] MEDICAID STAND ADULT * Guarantor: Selam Douglass Account Type Relation to Patient Date of Phone Billing Address Personal/Family Self [address] [place] Care Teams Airport Location Manager Relationship Specialty Start Date End Date Erin Wilcox MD [address] [place] [phone] PCP - General Family Medicine 07/31/22
--- OUTSIDE RECORDS SUMMARY | 2024-11-17 10:35 | XMS_ITS | Encounter Summary ---
Author Organization [employer] [facility] Address [address] [place] [address] 7 [place] [address] Care Team Providers Care Elementary [employer] Social Worker Name Role Phone Erin Wilcox MD Primary Care Provider [phone] Encounter Details Date Type Department Care Team (Late Contact Info) Description 07/18/2023 Abstract [facility] [address] [place], [place] [phone] Sveta Avelar DDS [address] [place] [address] Social History Tobacco Use Types Packs/Day Years Used Date Smoking Tobacco: Every Day Cigarettes Smokeless Tobacco: Never Alcohol Use Standard Drinks/Week Comments Never 0 (1 standard drink = 0.6 oz pur e alcohol) Comments Unknown Sex and Gender Information Value Date Recorded Sex Assigned at Female 08/12/2022 10:23 AM EDT Legal Sex Female 10:23 AM EDT Gender Identity Female 08/12/2022 10:23 AM EDT Sexual Orientation Straight 08/12/2022 10 :23 AM EDT documented as of this encounter Plan of Treatment Upcoming Encounters Date Type Department Care Team (Late st Contact Info) Description 11/30/2024 9:15 AM EST Office Visit [facility] [address] [place], [place] [phone] Jane Hassan MD [address] [place], [place] [phone] documented as of this encounter Visit Diagnoses Not on filedocumented in this encounter Care Teams Elementary School Social Worker Relationship Specialty Start Date End Date Erin Wilcox MD [address] [place] [phone] PCP - General Family Medicine 07/31/22 documented as of this encounter
--- OUTSIDE RECORDS SUMMARY | 2024-11-17 10:35 | XMS_ITS | Encounter Summary ---
Author Organization [employer] Address [address] [place] [address] 7t [place] [address] Care Team Providers Care Tool Crib Manager Name Role Phone Erin Wilcox MD Primary Care Provider [phone] Encounter Details Date Type Department Care Team (Latest Contact Info) Description 09/07/2019 Abstract [facility] Dental, Provider, DDS Social History Tobacco Use Types Packs/Day Years Used Date Smoking Tobacco: Never Assessed Comments Unknown Sex and Gender Information Value [...] Description 11/30/2024 9:15 AM EST Office Visit [facility] [address] [place] [address] Jane Hassan MD [address] [place] [address] documented as of this encounter Visit Diagnoses Not on filedocumented in this encounter Care Teams Tool Crib Manager Relationship Specialty Start Date End Date Erin Wilcox MD [address] [place] [address] PCP - General Family Medicine 07/31/22 documented as of this encounter
--- OUTSIDE RECORDS SUMMARY | 2024-11-17 10:35 | XMS_ITS | Encounter Summary ---
Author Organization [employer] Address [address] [place] [address] 7 [place] [address] Care Team Providers Care Line Service Attendant Name Role Phone Erin Wilcox MD Primary Care Provider [phone] Encounter Details Date Type Department Care Team (Latest Contact Info) Description 07/31/2022 Abstract [facility] CONVERSION[facility] Dental, Provider, DDS Social [...] Description 11/30/2024 9:15 AM EST Office Visit [facility]EDS [address] [place] [address] Jane Hassan MD [address] [place] [address] documented as of this encounter Visit Diagnoses Not on filedocumented in this encounter Care Teams Line Service Attendant Relationship Specialty Start Date End Date Erin Wilcox MD [address] [place] [phone] PCP - General Family Medicine 07/31/22 documented as of this encounter
--- OUTSIDE RECORDS SUMMARY | 2024-11-17 10:35 | XMS_ITS | Encounter Summary ---
Author Organization [employer] Address [address] [place] [address] 7t [place] [address] Care Team Providers Care C D Still Operator Name Role Phone Erin Wilcox MD Primary Care Provider [phone] Encounter Details Date Type Department Care Team (Latest Contact Info) Description 07/25/2021 Abstract [facility] CONVERSIONS Dental, Provider, DDS Social History Tobacco [...] Description 11/30/2024 9:15 AM EST Office Visit [facility]S [address] [place] [address] Jane Hassan MD [address] [place] [address] documented as of this encounter Visit Diagnoses Not on filedocumented in this encounter Care Teams C D Still Operator Relationship Specialty Start Date End Date Erin Wilcox MD [address] [place] [phone] PCP - General Family Medicine 07/31/22 documented as of this encounter
--- OUTSIDE RECORDS SUMMARY | 2024-11-17 10:35 | XMS_ITS | Encounter Summary ---
Author Organization [facility] [employer] Address [address] [place] [address] 7t [place] [address] Care Team Providers Care Commercial Property Administrator Name Role Phone Erin Wilcox MD Primary Care Provider [phone] Encounter Details Date Type Department Care Team (Late Contact Info) Description 10/29/2023 Abstract [facility] [address] [place], [place] [phone] Jaz Zhang DMD Social History Tobacco Use Types Packs/Day Years Used Date Smoking Tobacco: Every Day Cigarettes Smokeless Tobacco: Never Alcohol Use Standard Drinks/Week Comments Never 0 (1 standard drink = 0.6 oz pur e alcohol) Depression Answer Date Recorded Patient Health Questionnaire-9 Score 2 08/08/2023 Patient Health Questionnaire-9 Score 2 08/08/2023 Last PHQ-9: Questionnaire Data Not on file 1 Depression Answer Date Recorded Patient Health Questionnaire-2 [...] 11/30/2024 9:15 AM EST Office Visit [facility] [address] [place], [place] [phone] Jane Hassan MD [address] [place], [place] [phone] documented as of this encounter Visit Diagnoses Not on filedocumented in this encounter Additional Health Concerns Assessment Noted Time PHQ-9 Depression Total Score: 2 08/08/20 23 10:07 AM EDT documented as of this encounter Care Teams Commercial Property Administrator Relationship Specialty Start Date End Date Erin Wilcox MD [address] [place] [address] PCP - General Family Medicine 07/31/22 documented as of this encounter
--- OUTSIDE RECORDS SUMMARY | 2024-11-17 10:35 | XMS_ITS | Encounter Summary ---
Author Organization [employer] Address [address] [facility] 7t [place] [address] Care Team Providers Care Puller Machine Name Role Phone Erin Wilcox MD Primary Care Provider [phone] Encounter Details Date Type Department Care Team (Late st Contact Info) Description 09/14/2024 Orders Only [facility] CHC MED & PEDS [address] [place], [place] [phone] Jane Hassan MD [address] [place], [place] [phone] Psoriasis (Primary Dx) Social History Tobacco Use Types Packs/Day Years [...] Description 11/30/2024 9:15 AM EST Office Visit [facility] MED & PEDS [address] [place], [place] [phone] Jane Hassan MD 505 [place], [place] [phone] Scheduled Orders Name Type Priority Associated Diagnoses Orde r Schedule T-SPOT??.TB Lab Routine Psoriasis Expected: 09/14/2024 (Approximate), Expires: 09/14/2025 documented as of this encounter Procedures Procedure Name Priority Date/Time Associated Diagnosis Comments GROSS AND MICROSCOPIC LEVEL 3 Routine 09/30/2024 11:46 AM EST Psoriasis documented in this encounter Results * Gross and Microscopic Level 3 (09/30/2024 11:46 AM EST) 09/30/2024 11:4 6 AM EST 09/30/2024 12:03 PM EST [facility] LABS - 10/01/2024 5:00 PM EST ----- ------- Name: Selam Douglass ?Age/Sex: 39/F ? : 1985 Unit#: [id number] ?? Attend Dr: Urban Diaz MD ?Re09/30/24 ?Status: DEP REF ? Location: HO.LNP ?Disch: ? ----- ------- SPEC : [id number] ? RECD: 09/30/24-1203 ? STATUS: ??SOUT ? REQ NUM: [id number] ? MARS: 09/30/24-1146 ? SUBM DR: Urban Diaz MD ? ENTERED: ??09/30/24-1213 ?SP TYPE: Surgical ? OTHR DR: Erin [...] containing white-yellow cheesy and keratotic material. ??A telemarketing representative section from each is submitted in a cassette labeled A1. CEDS Copies To: ?? Urban Diaz MD ?? [facility] ?? [address] ?? [place] [address] ?? [phone] ?? Erin Wilcox MD ?? [address] ?? [place] [address] ?? [phone] ? CONTINUED ON NEXT PAGE ----- ------- Name: Selam Douglass ?Age/Sex: 39/F ? : 1985 Unit#: [id number] ?? Attend Dr: Urban Diaz MD ?Re09/30/24 ?Status: DEP REF ? Location: HO.LNP ?Disch: ? ----- ------- SPEC : [id number] ? RECD: 09/30/24-1203 ? STATUS: ??SOUT ? REQ NUM: [id number] ? MARS: 09/30/24-1146 ? SUBM DR: Urban Diaz MD ? ENTERED: ??09/30/24-1213 ?SP TYPE: Surgical ? OTHR DR: Erin Wilcox MD ? ORDERED: ??Gross Micro L3 ? ----- ------- Signed (signature on file) Surjit Galeano MD 10/01/24 1700 ? ----- ------- ? END OF REPORT ? us Generic External Data Provider LAB CYTOLOGY MONTSE BURCIAGA Final Result [facility] [address] [place] [phone] documented in this encounter Visit Diagnoses Diagnosis Psoriasis- Primary Other psoriasis documented in this encounter Additional Health Concerns Assessment Noted Time PHQ-9 Depression Total Score: 2 08/08/20 23 10:07 AM EDT documented as of this encounter Care Teams Puller Machine Relationship Specialty Start Date End Date Erin Wilcox MD [address] [place] [address] PCP - General Family Medicine 07/31/22 documented as of this encounter
--- OUTSIDE RECORDS SUMMARY | 2024-11-17 10:35 | XMS_ITS | Encounter Summary ---
Author Organization [employer] Address [address] [place] [address] 7t [place] [address] Care Team Providers Care Family Literacy Coordinator Name Role Phone Erin Wilcox MD Primary Care Provider [phone] Encounter Details Date Type Department Care Team (Latest Contact Info) Description 08/07/2020 Abstract [facility] CONVERSIONS Dental, Provider, DDS [...] Description 11/30/2024 9:15 AM EST Office Visit [facility] CHC MED & PEDS [address] [place] [address] Jane Hassan MD 505 [place] [address] documented as of this encounter Visit Diagnoses Not on filedocumented in this encounter Care Teams Family Literacy Coordinator Relationship Specialty Start Date End Date Erin Wilcox MD [address] [place] [address] PCP - General Family Medicine 07/31/22 documented as of this encounter
== END 2024-11-17 11:00 | disposition home or self-care (01) ==
PROVIDERS: PCP Family Medicine; Visit Provider Orthopaedic Surgery
DX: M20.012 Mallet finger of left finger(s) (principal); R22.32 Localized swelling, mass and lump, left upper limb
CPT/HCPCS: 99204

== ENCOUNTER → 2024-11-17 10:01 | Outpatient (BNV) | payer MEDICAID, SELFPAY | PROVIDERS: Visit Provider Radiology Diagnostic Radiology | DX: M79.642 Pain in left hand (principal) | CPT/HCPCS: 73130 ==

== ENCOUNTER 2024-12-20 10:33 | Day surgery (SDC) | payer MEDICAID, SELFPAY ==
--- NOTE | 2024-12-17 13:10 | HO.ANESPROP2 ---
Documented by User: Ira Locke NP 12/17/24 13:11 HPI - Anesthesia Eval Consult details Narrative: 39yo F for Left Small finger molar Excision Mass biopsy PMFSH Active Problems Active Problems: All Active Problems Mass of finger of left hand (Acute) Mallet finger of left hand (Acute) Epidermal inclusion cyst (Acute) Lipoma of left upper extremity (Acute) Surgical History Surgical History History of rhinoplasty History of back surgery Social History Social History (Updated 11/17/24 @ 10:19 by KELLEY Hines) Alcohol intake: never Patient Tobacco Use Status: Current everyday Tobacco user Tobacco use type: Cigarette Cigarettes Per Day: 5 Use of substances other than those prescribed or required for medical reasons: No Are you DNR?: No Advance Directives: No Advance Directives Information Provided: Yes Current occupational status: employed 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 Allergies Allergy/AdvReac Type Severity Reaction Status Date / Time No Known Allergies Allergy Mild NONE Verified 12/20/24 10:48 Home Medications ?Medication ?Instructions ?Recorded ?Confirmed ?Last Taken ?Type multivitamin 1 tab PO DAILY 11/17/24 12/20/24 Unknown History rosuvastatin 10 mg tablet 10 mg PO QAM 11/17/24 12/20/24 Unknown History Assessment and Plan Assessment Anesthesia Assessment: Chart Reviewed Documented by User: Fabiana Mcdonald MD 12/20/24 12:49 PMFSH Family History Family history of problems with anesthesia: No Surgical History Surgical History History of rhinoplasty History of back surgery History of Problems with Anesthesia: No Social History Social History (Updated 11/17/24 @ 10:19 by KELLEY Hines) Alcohol intake: never Patient Tobacco Use Status: Current everyday Tobacco user Tobacco use type: Cigarette Cigarettes Per Day: 5 Use of substances other than those prescribed or required for medical reasons: No Are you DNR?: No Advance Directives: No Advance Directives Information Provided: Yes Current occupational status: employed 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 Allergies Allergy/AdvReac Type Severity Reaction Status Date / Time No Known Allergies Allergy Mild NONE Verified 12/20/24 10:48 Home Medications ?Medication ?Instructions ?Recorded ?Confirmed ?Last Taken ?Type multivitamin 1 tab PO DAILY 11/17/24 12/20/24 Unknown History rosuvastatin 10 mg tablet 10 mg PO QAM 11/17/24 12/20/24 Unknown History Exam Airway Mallampati Class: II (all implants) TM Dist: >3cm Neck ROM: Full Heart: rrr Lungs: cta Assessment and Plan Assessment Anesthesia Assessment: Anesthesia Plan Discussed Final Anesthetic Review Family History of Problems with Anesthesia: No History of Problems with Anesthesia: No NPO: No ASA Class: I Final Preanesthetic Review: No Changes in Pt Med Stat, Meds/Allgs Chart Reviewed and Consent Obtained/Reviewed Patient Risk: Low Procedure Risk: Low Anesthetic Plan Anesthetic Plan: MAC: Disposition: Standard PACU
--- OUTSIDE RECORDS SUMMARY | 2024-12-17 14:42 | XMS_ITS | Encounter Summary ---
Author Organization [facility] [employer] Address [address] [place] [address] 7t [place] [address] Care Team Providers Care Body Shop Supervisor Name Role Phone Erin Wilcox MD Primary Care Provider [phone] Encounter Details Date Type Department Care Team (Late st Contact Info) Description 10/29/2023 Abstract [facility] ADULT DENTAL [address] [place], [place] [phone] Jaz Zhang DMD Social History Tobacco Use [...] Care Team (Late st Contact Info) Description 01/11/2025 10:00 AM EDT Office Visit [facility] MED & PEDS [address] [place], [place] [phone] Jane Hassan MD [address] [place], [place] [phone] documented as of this encounter Visit Diagnoses Not on filedocumented in this encounter Additional Health Concerns Assessment Noted Time PHQ-9 Depression Total Score: 2 08/08/20 23 10:07 AM EDT documented as of this encounter Care Teams Body Shop Supervisor Relationship Specialty Start Date End Date Erin Wilcox MD [address] [place] [address] PCP - General Family Medicine 07/31/22 documented as of this encounter
--- OUTSIDE RECORDS SUMMARY | 2024-12-17 14:42 | XMS_ITS | Encounter Summary ---
Author Organization [facility] [employer] [facility] Address [address] [place] [address] 7 [place] [address] Care Team Providers Care Stripper And Printer Name Role Phone Erin Wilcox MD Primary Care Provider [phone] Encounter Details Date Type Department Care Team (Late Contact Info) Description 07/18/2023 Abstract [facility] ADULT DENTAL [address] [place], [place] [phone] Sveta Avelar DDS [address] [place] [address] Social History Tobacco Use Types Packs/Day Years [...] Encounters Date Type Department Care Team (Late Contact Info) Description 01/11/2025 10:00 AM EDT Office Visit [facility] MED & PEDS [address] [place], [place] [phone] Jane Hassan MD [address] [place], [place] [phone] documented as of this encounter Visit Diagnoses Not on filedocumented in this encounter Care Teams Stripper And Printer Relationship Specialty Start Date End Date Erin Wilcox MD [address] [place] [address] PCP - General Family Medicine 07/31/22 documented as of this encounter
--- OUTSIDE RECORDS SUMMARY | 2024-12-17 14:43 | XMS_ITS | Encounter Summary ---
Author Organization [employer] Address [address] [place] [address] 7t [place] [address] Care Team Providers Care Brine Well Operator Name Role Phone Erin Wilcox MD Primary Care Provider [phone] Encounter Details Date Type Department Care Team (Latest Contact Info) Description 07/31/2022 Abstract [facility] CONVERSIONS Dental, Provider, DDS Social History Tobacco [...] Description 01/11/2025 10:00 AM EDT Office Visit [facility] MED & PEDS [address] [place] [address] Jane Hassan MD [address] [place] [address] documented as of this encounter Visit Diagnoses Not on filedocumented in this encounter Care Teams Brine Well Operator Relationship Specialty Start Date End Date Erin Wilcox MD [address] [place] [address] PCP - General Family Medicine 07/31/22 documented as of this encounter
--- OUTSIDE RECORDS SUMMARY | 2024-12-17 14:43 | XMS_ITS | Encounter Summary ---
Author Organization [employer] Address [address] [facility] 7t [place] [address] Care Team Providers Care Clinical Audiologist Name Role Phone Erin Wilcox MD Primary Care Provider [phone] Reason for Visit * Reason Onset Date Comments No Show 11/30/2024 Encounter Details Date Type Department Care Team ([facility] Contact Info) Description 11/30/2024 Telephone [facility] CHC MED & PEDS [address] [place], [place] [phone] Jane Hassan MD [address] [place] [address] No Show Social History Tobacco Use Types Packs/Day Years [...] AM EDT documented as of this encounter Miscellaneous Notes * Telephone Encounter - Felipe Call - 11/30/2024 1:43 PM EST No Show 11/30/24 for Derm documented in this encounter Plan of Treatment Upcoming Encounters Date Type Department Care Team (Late st Contact Info) Description 01/11/2025 10:00 AM EDT Office Visit [facility] MED [facility] PEDS [address] [place] [address] Jane Hassan MD [address] [place] [address] documented as of this encounter Visit Diagnoses Not on filedocumented in this encounter Additional Health Concerns Assessment Noted Time PHQ-9 Depression Total Score: 2 08/08/20 23 10:07 AM EDT documented as of this encounter Care Teams Clinical Audiologist Relationship Specialty Start Date End Date Erin Wilcox MD [address] [place] [address] PCP - General Family Medicine 07/31/22 documented as of this encounter
--- OUTSIDE RECORDS SUMMARY | 2024-12-17 14:43 | XMS_ITS | Encounter Summary ---
Author Organization [employer] Address [address] [facility] 7t [place] [address] Care Team Providers Care Clearance Rep Name Role Phone Erin Wilcox MD Primary Care Provider [phone] Encounter Details Date Type Department Care Team (Late st Contact Info) Description 09/14/2024 Orders Only [facility] CHC MED & PEDS [address] [place], [place] [phone] Jane Hassan MD [address] [place], [place] [phone] Psoriasis (Primary Dx) Social History Tobacco Use [...] Description 01/11/2025 10:00 AM EDT Office Visit [facility] MED & PEDS [address] [place], [place] [phone] Jane Hassan MD [address] [place], [place] [phone] Scheduled Orders Name Type Priority Associated Diagnoses [...] AM EST 09/30/2024 12:03 PM EST [facility] LABS - 10/01/2024 5:00 PM EST ----- ------- Name: Selam Douglass ?Age/Sex: 39/F ? : 1985 Unit#: [id number] ?? Attend Dr: Urban Diaz MD ?Re09/30/24 ?Status: DEP REF ? Location: HO.LNP ?Disch: ? ----- ------- SPEC : [id number] ? RECD: 09/30/24-1203 ? STATUS: ??SOUT ? REQ NUM: [id number] ? MARS: 09/30/24-1146 ? SUBM DR: Urban [...] containing white-yellow cheesy and keratotic material. ??A direct marketing representative section from each is submitted in a cassette labeled A1. CEDS Copies To: ?? Urban Diaz MD ?? [facility] ?? Hospital ??[address] ?? [place] [address] ?? [phone] ?? Erin Wilcox MD ?? [address] ?? [place] [address] ?? [phone] ? CONTINUED ON NEXT PAGE ----- ------- Name: Selam Douglass ?Age/Sex: 39/F ? : 1985 Unit#: [id number] ?? Attend Dr: Urban Diaz MD ?Re09/30/24 ?Status: DEP REF ? Location: HO.LNP ?Disch: ? ----- ------- SPEC : [id number] ? RECD: 09/30/24-1203 ? STATUS: ??SOUT ? REQ NUM: [id number] ? MARS: 09/30/24-1146 ? SUBM DR: Urban Diaz MD ? ENTERED: ??09/30/24-1213 ?SP TYPE: Surgical ? OTHR DR: Erin Wilcox MD ? ORDERED: ??Gross Micro L3 ? ----- ------- Signed (signature on file) Surjit Galeano MD 10/01/24 1700 ? ----- ------- ? END OF REPORT ? us Generic External Data Provider LAB CYTOLOGY MONTSE BURCIAGA Final Result [facility] LABS [address] [place] [phone] documented in this encounter Visit Diagnoses Diagnosis Psoriasis- Primary Other psoriasis documented in this encounter Additional Health Concerns Assessment Noted Time PHQ-9 Depression Total Score: 2 08/08/20 23 10:07 AM EDT documented as of this encounter Care Teams Clearance Rep Relationship Specialty Start Date End Date Erin Wilcox MD [address] [place] [address] PCP - General Family Medicine 07/31/22 documented as of this encounter
--- OUTSIDE RECORDS SUMMARY | 2024-12-17 14:43 | XMS_ITS | Encounter Summary ---
Author Organization [employer] Address [address] [place] [address] 7t [place] [address] Care Team Providers Care Field Identification Specialist Name Role Phone Erin Wilcox MD Primary Care Provider [phone] Encounter Details Date Type Department Care Team (Latest Contact Info) Description 09/07/2019 Abstract [facility] CONVERSIONS Dental, Provider, DDS Social History Tobacco [...] Description 01/11/2025 10:00 AM EDT Office Visit [facility] CHC MED & PEDS [address] [place] [address] Jane Hassan MD [address] [place] [address] documented as of this encounter Visit Diagnoses Not on filedocumented in this encounter Care Teams Field Identification Specialist Relationship Specialty Start Date End Date Erin Wilcox MD [address] [place] [phone] PCP - General Family Medicine 07/31/22 documented as of this encounter
--- OUTSIDE RECORDS SUMMARY | 2024-12-17 14:43 | XMS_ITS | Clinical Summary ---
Author Organization [employer] Address [address] [facility] 7t [place] [address] Care Team Providers Care Coffee Shop Manager Name Role Phone Erin Wilcox MD Primary Care Provider [phone] Allergies No known active allergies Medications betamethasone [...] fibrous uterus on US, has referral for TELEMETRY TECHNICIAN in place, pending appt. Reports periods are less heavy with depo. Has upcoming appt with nurse. Future Appointments Date Time Provider Department Center 05/11/2024 1:00 PM [facility] NURSE [facility] Lumbar back pain 08/08/2023 Assessment & [...] Encounters Date Type Department Care Team Description 11/30/2024 Telephone [facility] MED & PEDS [address] [place] [address] Jane Hassan MD No Show 10/01/2024 Telephone [facility] [address] [place], [place] [phone] Jane Hassan MD from Last 3 Months Immunizations Name [...] Description 01/11/2025 10:00 AM EDT Office Visit [facility] MED & PEDS [address] [place], [place] [phone] Jane Hassan MD [address] [place], [place] [phone] Health Maintenance Due Date Last Done Comments [...] 6 AM EST 09/30/2024 12:03 PM EST Narrative [facility] LABS - 10/01/2024 5:00 PM EST ----- ------- Name: Selam Douglass ?Age/Sex: 39/F ? : 1985 Unit#: [id number] ?? Attend Dr: Urban Diaz MD ?Re09/30/24 ?Status: DEP REF ? Location: HO.LNP ?Disch: ? ----- ------- SPEC : [id number] ? RECD: 09/30/24-3 ? STATUS: ??SOUT ? REQ NUM: [id number] ? MARS: 09/30/24-1146 ? SUBM DR: Urban [...] white-yellow cheesy and keratotic material. ??A financial foundations representative section from each is submitted in a cassette labeled A1. CEDS Copies To: ?? Urban Diaz MD ?? [facility] ?? [address] ?? [place] [address] ?? [phone] ?? Erin Wilcox MD ?? [address] ?? [place] [address] ?? [phone] ? CONTINUED ON NEXT PAGE ----- ------- Name: Selam Douglass ?Age/Sex: 39/F ? : 1985 Unit#: [id number] ?? Attend Dr: Urban Diaz MD ?Re09/30/24 ?Status: DEP REF ? Location: HO.LNP ?Disch: ? ----- ------- SPEC : [id number] ? RECD: 09/30/24-1203 ? STATUS: ??SOUT ? REQ NUM: [id number] ? MARS: 09/30/24-1146 ? SUBM DR: Urban Diaz MD ? ENTERED: ??09/30/24-1213 ?SP TYPE: Surgical ? OTHR DR: Erin Wilcox MD ? ORDERED: ??Gross Micro L3 ? ----- ------- Signed (signature on file) Surjit Galeano MD 10/01/24 1700 ? ----- ------- ? END OF REPORT ? us Generic External Data Provider LAB CYTOLOGY MONTSE BURCIAGA Final Result [facility] [address] [place] [address] [phone] * Hepatitis C Ab (08/08/2023 10:39 AM EDT) Hepatitis C Antibody Nonreactive Nonreactive [facility] Comment:Antibodies to HCV no t detected; does not exclude early acuteHCV infection. Blood Venous blood specimen / Unknown 08/08/2023 10:39 AM EDT 08/08/2023 2:46 PM EDT Erin Wilcox MD LAB BLOOD ORDERABLES Final Re sult Performing Organization Address City/[facility]/ZIP Co de Phone Number [facility] [address] [place] [address] [phone] * HIV Ab/Ag ([facility]) (08/08/2023 10:39 AM EDT) HIV AB/AG Nonreactive Nonreactive [facility] Comment:HIV-1 p24 Ag and/or HIV-1/HIV-2 Ab not detected.A test result that is nonreactive does not exclude thepossibility of exposure to or infection with HIV-1 and/orHIV-2. Nonreactive results in this assay for individualswith prior exposure to HIV-1 and/or HIV-2 may be due toantigen and antibody levels that are below the limit ofdetection of this assay.[employer] HIV Ag/Ab Combo assay result andsupplemental assay results should be interpreted inconjunction with the patient's clinical presentation,history and other laboratory results. If the results areinconsistent with clinical evidence, additional testing issuggested to confirm the result. 08/08/2023 10:3 9 AM EDT 08/08/2023 2:46 PM EDT us Erin Wilcox MD LAB BLOOD ORDERABLES Final Re sult Performing Organization Address City/[facility]/ZIP Co de Phone Number [facility] [address] [place] [address] [phone] * (ABNORMAL) Lipid Panel, Standard (08/08/2023 10:39 AM EDT) Triglycerides 77 <150 mg/dL [facility] Comment:Desirable Triglyceri de: less than 150 mg/dLBorderline High Triglyceride 150-199 mg/dLHigh Triglyceride: 200-499 mg/dLVery High Triglyceride: greater than or equal to 5OO mg/dL Cholesterol 209(H) <200 mg/dL [facility] Comment:Desirable Cholestero l: less than 200 mg/dLBorderline High Cholesterol: 200-239 mg/dLHigh Cholesterol: greater than 239 mg/dL LDL Cholesterol Calculated 158(H) <100 mg/dL [facility] Comment:Desirable LDL: less than 100 mg/dLNear Optimal/Above Optimal LDL: 110- 129 mg/dLBorderline High LDL: 130-159 mg/dLHigh LDL: 160-189 mg/dLVery High LDL: greater than or equal to 190 mg/dL HDL Cholesterol 36(L) >40 mg/dL [facility] Comment:Desirable HDL: great er than 40 mg/dL Note: This HDL assay may give artificially low results in patients with liver disease. Blood Venous blood specimen / Unknown 08/08/2023 10:39 AM EDT 08/08/2023 2:46 PM EDT us Erin Wilcox MD LAB BLOOD ORDERABLES Final Re sult [facility] [address] [place] [address] [phone] * THINPREP TIS PAP AND HPV [...] been evaluated with computer assisted technology. [facility] Access Clinician : SEE COMMENT [facility] Comment: [place], CT(ASCP) CT screening location: [facility] [address] ??[phone] HPV nRNA E6/E7 Not Detected Not Detected [facility] Comment: Methodology: Professor Of Counseling-Mediated Amplification This assay detects E6/E7 viral messenger RNA (mRNA) from 14 high-risk HPV types (16,18,31,33,35,39,45,51,52,56,58,59,66,68). ? Cervical sources are required for HPV testing. If a vaginal source from a patient who has had a total hysterectomy with removal of cervix was ?? submitted, please contact the testing laboratory for alternative testing options. ?? For additional information, please refer to http://education.[employer]/faq/JCG062h2 (This link if provided for information/ educational [...] Most Recently Relevant to Health Maintenance Insurance [employer] C3 DENTAL-[employer] [facility] MEDICAID STAND ADULT Care Teams Coffee Shop Manager Relationship Specialty Start Date End Date Erin Wilcox MD [address] [place] [address] PCP - General Family Medicine 07/31/22
--- OUTSIDE RECORDS SUMMARY | 2024-12-17 14:43 | XMS_ITS | Encounter Summary ---
Author Organization [employer] Address [address] [place] [address] 7t [place] [address] Care Team Providers Care Computer Lab Assistant Name Role Phone Erin Wilcox MD Primary Care Provider [phone] Encounter Details Date Type Department Care Team (Latest Contact Info) Description 07/25/2021 Abstract [facility] CONVERSIONS Dental, Provider, DDS Social [...] Description 01/11/2025 10:00 AM EDT Office Visit [facility] CHC MED & PEDS [address] [place] [address] Jane Hassan MD [address] [place] [address] documented as of this encounter Visit Diagnoses Not on filedocumented in this encounter Care Teams Computer Lab Assistant Relationship Specialty Start Date End Date Erin Wilcox MD [address] [place] [phone] PCP - General Family Medicine 07/31/22 documented as of this encounter
--- OUTSIDE RECORDS SUMMARY | 2024-12-17 14:43 | XMS_ITS | Encounter Summary ---
Author Organization [employer] Address [address] [place] [address] 7t [place] [address] Care Team Providers Care Aerial Lineman Name Role Phone Erin Wilcox MD Primary Care Provider [phone] Encounter Details Date Type Department Care Team (Latest Contact Info) Description 08/07/2020 Abstract [facility] CON[facility] Dental, Provider, DDS Social History Tobacco [...] Description 01/11/2025 10:00 AM EDT Office Visit [facility] MED & PEDS [address] [place] [address] Jane Hassan MD [address] [place] [address] documented as of this encounter Visit Diagnoses Not on filedocumented in this encounter Care Teams Aerial Lineman Relationship Specialty Start Date End Date Erin Wilcox MD [address] [place] [address] PCP - General Family Medicine 07/31/22 documented as of this encounter
[2024-12-20 10:43] VITALS: BMI 20.6
[2024-12-20 10:57] LABS: UPreg QC Valid YES; Urine Pregnancy NEGATIVE (NEGATIVE)
[2024-12-20 10:59] VITALS: BP 109/70; PULSE 108; RESP 16; TEMP 37.3; O2SAT 95
[2024-12-20] MEDS: Lactated Ringers 1,000 ML 100 ML IVCONT (11:10)
--- NOTE | 2024-12-20 11:15 | MHC.SHP ---
Pre-Procedural Eval Section A - 24 Hr Update-Section A only Date of Service: 12/20/24 The patient is an INPATIENT: No Changes since office visit: No Cold of Flu in the past 2 weeks, No New Medical Problems, No Changes in Medication and No Patient answered all questions The patient has been examined within 24 hours of the surgical procedure. The History & Physical has been completed within 30 days and I have reviewed it.: Yes Section B - Complete if H&P > 30 days Chief Complaint: Mass finger of left finger Allergies: Allergies Allergy/AdvReac Type Severity Reaction Status Date / Time No Known Allergies Allergy Mild NONE Verified 12/20/24 10:48 Plan I have reviewed the history and physical and performed a pertinent physical examination on my patient. No changes have occurred unless specified. Time Spent With Patient Time: Total time managing care of this patient today ____ minutes.
--- NOTE | 2024-12-20 11:16 | W.PM.OPN ---
Operative Note Operative Note Date of Service: 12/20/24 Narrative: Operative Note Narrative: Preop diagnosis: 1. Left small finger soft tissue mass Postop diagnosis: Same Procedure: 1. Left small finger soft tissue mass excisional biopsy Surgeon: Pat Dye MD Modular Set Crew Member: none Anesthesia: General Anesthesia Findings: 5-6 mm diameter area of overlying skin changes, with an approximately 5-6 mm diameter spherical white colored mass attached to the deep surface. Appearance of soft tissue mass actually most consistent with an epidermal inclusion cyst with injured skin likely the result of attempting to freeze/burn what they thought was a wart. Implants: None Tourniquet time: 13 minutes EBL: 5.0 ml Specimen: left small finger soft tissue mass for histopathology Drains: None Complications: None Disposition: Brought to the recovery room in stable condition Plan: Follow-up in 10-14 days for wound check, suture removal and to check pathology Indications: The patient is a 39 year old woman with a left small finger soft tissue mass with overlying skin changes, status post attempts at freezing/ burning what they thought was a wart. . The risks and benefits of operative treatment, including but not limited to risk of damage to blood vessels, nerves, tendons, infection, recurrence, persistent pain or numbness, incomplete resolution of preoperative symptoms, or need for further surgery were discussed with the patient and they wished to proceed with surgery. Procedure: Once consent was obtained patient was brought back to the operating suite and placed in the operating table in a supine position. . Perioperative antibiotics and anesthesia was administered by the anesthesia team. A tourniquet was applied to the proximal aspect of the Left upper extremity and the limb was prepped and draped in a standard surgical fashion. The limb was elevated exsanguinated with Esmarch bandage and the tourniquet inflated to 250 mm of mercury for a total tourniquet time of 13 minutes. an obliquely oriented elliptical incision was made about the 5 mm skin lesion on the volar surface of the left small finger middle phalanx level. The incision was made through the skin to the subcutaneous tissues. Has a began to elevate the involved area I could see that there was a spherical soft tissue mass attached to the undersurface of the skin. It was white in color, spherical, and most consistent with a possible epidermal inclusion cyst in appearance. This was carefully dissected free from the surrounding soft tissues using iris scissors. The soft tissue mass at its overlying skin was then passed off to the back table to be sent for histopathology. I then undermined the skin edges. At this point the tourniquet was deflated and hemostasis obtained with a brief period of local pressure The wound was copiously irrigated with normal saline. The skin edges were reapproximated with 5-0 nylon suture. A digital block was performed using some 1% lidocaine with epinephrine for postop pain control and a sterile dressing was applied. The patient appears to have tolerated the procedure well and with no complications. All digits were well vascularized conclusion of the case.
[2024-12-20 14:03] VITALS: BP 93/55; PULSE 82; RESP 16; TEMP 36.4; O2SAT 95
[2024-12-20 14:05] VITALS: BP 95/54; PULSE 79; RESP 16; O2SAT 97
[2024-12-20 14:10] VITALS: BP 96/64; PULSE 77; RESP 16; O2SAT 97
[2024-12-20 14:15] VITALS: BP 92/59; PULSE 88; RESP 16; O2SAT 97
== END 2024-12-20 14:40 | disposition home or self-care (01) ==
PROVIDERS: Nurse Practitioner; PCP Internal Medicine; Visit Provider Orthopaedic Surgery
PROC: (CPT 11420; principal; 2024-12-20 13:40)
DX: R22.32 Localized swelling, mass and lump, left upper limb (principal); B07.8 Other viral warts; F17.210 Nicotine dependence, cigarettes, uncomplicated; Z98.890 Other specified postprocedural states
CPT/HCPCS: 11420; 81025; 88304; 88305; J0131; J0690; J2003; J2250; J2405; J2704; J3010

== ENCOUNTER → 2024-12-20 10:33 | Outpatient (BNV) | payer MEDICAID, SELFPAY | PROVIDERS: PCP Internal Medicine; Visit Provider Orthopaedic Surgery | DX: R22.31 Localized swelling, mass and lump, right upper limb (principal); B07.9 Viral wart, unspecified | CPT/HCPCS: 26115 ==

== ENCOUNTER 2025-01-03 11:36 | Outpatient (AMB) | payer MEDICAID, SELFPAY ==
--- NOTE | 2025-01-03 11:45 | MHC.OFFVIS ---
Vital Signs 01/03/25 11:50 Height 5 ft 6 in Weight 128 lb BMI 20.7 Handedness Ambidextrous Intake Visit Reasons: PO LT SF volar mass exc biopsy 12/20/24 AR Intake Note: Selam is a 39 year old ambidextrous female who presents today for a post operative visit /p Left small finger soft tissue mass excisional biopsy DOS: 12/20/24 w/ Dr Pat Dye. Patient reports she has occasional pain. She says she is unable to straighten her finger and does not think she will be able to again. Denies numbness and tingling. Denies drainage from incision. Allergies No Known Allergies Allergy (Mild, Verified 01/03/25 11:51) NONE HPI HPI PO LT SF volar mass exc biopsy 12/20/24 AR: Details: Selam is a 39 year old ambidextrous female who presents today for a post operative visit /p Left small finger soft tissue mass excisional biopsy DOS: 12/20/24 w/ Dr Pat Dye. Patient reports she has occasional pain. She says she is unable to straighten her finger and does not think she will be able to again. Denies numbness and tingling. Denies drainage from incision. 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 Review of Systems Const All systems reviewed & are unremarkable except as noted in HPI and below Physical Exam Vital Signs: BMI result Body Mass Index 20.7 Const General: cooperative, healthy appearing and no acute distress Orientation/consciousness: patient oriented x3 HEENT Head: Yes normocephalic and Yes atraumatic Eyes EOM: EOMs intact bilaterally Resp Effort & Inspection: normal respiratory effort and able to speak in complete sentences Cardio Jugular venous distension: no JVD Skin General skin exam: turgor normal Rashes: no rashes Neuro General: patient oriented x3 Extrem Other: Evaluation of Left Upper Extremity: The patient is alert, oriented, and in no acute distress Neuro: Median, Ulnar, Radial nerves motor and sensory intact and sensation is normal to the tips of all digits Vascular: Cap refill brisk ROM: She can bring all her fingers closed to a fist and back into extension She is limited in her small finger extension at the DIP joint, with an extensor lag of ~25 degrees. Passively reducible Skin: Well approximated and well healing incision site noted on the volar aspect of the left small finger just proximal to the DIP joint No lacerations or abrasions. General: No Ecchymosis. No Erythema or evidence of infection. Psych Appearance: grossly normal Affect: normal affect Attitude: cooperative Results Reviewed Results Reviewed: Diagnosis Left small finger mass, excision: Verrucous and endophytic squamous proliferation (see comment). COMMENT: The histologic features likely represent an endophytic verrucous vulgari Assessment & Plan Assessment & Plan (1) Verruca vulgaris: Code(s): B07.9 - Viral wart, unspecified Category: Medical (2) Mass of finger of left hand: Comment: Code(s): R22.32 - Localized swelling, mass and lump, left upper limb Category: Medical Plan 1. Status post mass excision of left hand Patient is educated about this condition Patient is educated about the typical recovery course Patient was educated that pathology findings were consistent with verruca vulgaris, and then no further treatment is indicated based on these findings Patient was expresses understanding of this and is amenable to this plan Of note, upon suture removal, the patient does lose consciousness twice, recovers without difficulty and is able to leave on ambulatory basis today Patient will follow-up in 6 weeks to discuss left small finger DIP joint fusion with Dr. Dye, sooner with any acute concerns Coding Level of Care Code Global (51127) Diagnoses Verruca vulgaris B07.9 Mass of finger of left hand R22.32
[2025-01-03 11:50] VITALS: BMI 20.7
== END 2025-01-03 12:22 | disposition home or self-care (01) ==
LOC: HO.HOS 11:36
DX: B07.9 Viral wart, unspecified (principal); R22.32 Localized swelling, mass and lump, left upper limb
CPT/HCPCS: 99024

== ENCOUNTER → 2025-01-03 11:36 | Outpatient (BNVA) | payer MEDICAID, SELFPAY | DX: R22.32 Localized swelling, mass and lump, left upper limb (principal); B07.9 Viral wart, unspecified; Z98.890 Other specified postprocedural states | CPT/HCPCS: 99212 ==

== ENCOUNTER 2025-01-11 10:28 | Outpatient (REF) | payer MEDICAID, SELFPAY ==
[2025-01-11 14:50] LABS: MANUAL DIFF FLAG NO
[2025-01-11 15:00] LABS: Basophils Absolute Auto 0.1 X10*3/uL (0.0-0.2); Eosinophils Absolute Auto 0.2 X10*3/uL (0.0-0.4); Eosinophils Percent Auto 2.8 % (0-4); Hematocrit 36.5 % (37.0-47.0); Hemoglobin 11.9 g/dl (12.0-16.0); Imm Gran Abs Auto 0.02 X10*3/uL (0.00-0.03); Imm Gran Pct Auto 0.2 % (0.0-0.4); Lymphocytes Absolute Auto 2.6 X10*3/uL (1.2-4.9); Lymphocytes Percent Auto 32.2 % (20-40); Mean Corpuscular HGB Conc 32.6 g/dl (31.0-35.0); Mean Corpuscular Hemoglobin 27.8 pg (27.0-33.0); Mean Corpuscular Volume 85.3 fL (80.0-98.0); Monocytes Absolute Auto 0.7 X10*3/uL (0.1-1.2); Monocytes Percent Auto 8.6 % (2-11); Neutrophils Absolute Auto 4.5 x10*3/uL (2.0-8.3); Neutrophils Percent Auto 55.2 % (45-73); Platelet Count 339 X10*3/uL (160-400); Red Blood Count 4.28 X10*6/uL (4.20-5.50); Red Cell Distribution Width 14.8 % (11.0-16.0); White Blood Count 8.2 X10*3/uL (4.8-10.8)
[2025-01-11 17:33] LABS: Alanine Aminotransferase 38 U/L (0-31); Albumin Level 4.1 g/dL (3.5-5.0); Alkaline Phosphatase 90 U/L (39-117); Anion Gap 9 (12-20); Aspartate Amino Transferase 28 U/L (5-31); Bilirubin Total 0.3 mg/dL (0.0-1.0); Blood Urea Nitrogen 7 mg/dL (9-16); Carbon Dioxide 25 mmol/L (22-29); Chloride 110 mmol/L (96-108); Estimated Glomerular Filt Rate > 60; Glucose Random 76 mg/dL (60-115); Potassium 3.4 mmol/L (3.3-5.1); Sodium 141 mmol/L (135-145); Total Protein 6.6 g/dL (6.5-8.0)
[2025-01-11 17:35] LABS: TSH reflex Free T4 1.26 uIU/mL (0.32-4.0)
[2025-01-14 17:54] LABS: TS Negative Control Passed; TS Panel A 0; TS Panel B 0; TS Positive Control Passed; TSpotTB Negative (Negative)
== END 2025-01-11 10:29 | disposition home or self-care (01) ==
LOC: HO.CHCLDS 10:28
PROVIDERS: PCP Family Medicine; Visit Provider Internal Medicine
DX: N93.9 Abnormal uterine and vaginal bleeding, unspecified (principal); L40.9 Psoriasis, unspecified
CPT/HCPCS: 36415; 80053; 84443; 85025; 86481

== ENCOUNTER 2025-01-13 10:28 | Outpatient (REF) | payer MEDICAID, SELFPAY ==
--- OUTSIDE RECORDS SUMMARY | 2025-01-13 11:35 | XMS_ITS | Encounter Summary ---
Author Organization [employer] Address [address] [facility] [address] [place] [address] Care Team Providers Care Professor/Nurse Anesthetist Name Role Phone Erin Wiclox MD Primary Care Provider [phone] Encounter Details Date Type Department Care Team (Late st Contact Info) Description 07/18/2023 Abstract [facility] ADULT DENTAL [address] [place], [place] [phone] Sveta Avelar DDS [address] [place] [address] Social History Tobacco Use Types Packs/Day Years [...] as of this encounter Plan of Treatment Not on file documented as of this encounter Visit Diagnoses Not on filedocumented in this encounter Care Teams Professor/Nurse Anesthetist Relationship Specialty Start Date End Date Erin Wilcox MD [address] [place] [address] PCP - General Family Medicine 07/31/22 documented as of this encounter
--- OUTSIDE RECORDS SUMMARY | 2025-01-13 11:35 | XMS_ITS | Encounter Summary ---
Author Organization [employer] Address [address] [facility] [address] [place] [address] Care Team Providers Care Fiscal Officer Name Role Phone Erin Wilcox MD Primary Care Provider [phone] Encounter Details Date Type Department Care Team (Late st Contact Info) Description 10/29/2023 Abstract [facility] ADULT DENTAL [address] [place], [place] [phone] Jaz Zhang DMD Social History Tobacco Use [...] Time PHQ-9 Depression Total Score: 2 08/08/20 10:07 AM EDT documented as of this encounter Care Teams Fiscal Officer Relationship Specialty Start Date End Date Erin Wilcox MD [address] [place] [address] PCP - General Family Medicine 07/31/22 documented as of this encounter
--- OUTSIDE RECORDS SUMMARY | 2025-01-13 11:35 | XMS_ITS | Encounter Summary ---
Author Organization [employer] Address [address] [facility] [address] [place] [address] Care Team Providers Care Engraver Tender Name Role Phone Erin Wilcox MD Primary Care Provider [phone] Reason for Visit * Reason Onset Date Comments Results 01/13/2025 Encounter Details Date Type Department Care Team ([facility] st Contact Info) Description 01/13/2025 Telephone [facility] [address] [place], [place] [phone] Amisha Sanchez MD [address] [place] [address] Results Social History Tobacco Use Types Packs/Day Years [...] encounter Miscellaneous Notes * Telephone Encounter - Linda Diaz RN - 01/13/2025 9:42 AM EDT TC to pt. Pt told RN that she has been having a hard time eating lately. Pt states that she can go 2-3 days without eating and trying to eat new things from friends but still losing weight. RN informed pt that we need to check her iron levels and that she would make the provider aware of her eating/wt loss issues. Pt verbalized understanding and agreement with the plan of care. States she will bein later today for her labs. Note routed to provider. documented in this encounter Plan of Treatment Not on file documented as of this encounter Visit Diagnoses Not on filedocumented in this encounter Additional Health Concerns Assessment Noted Time PHQ-9 Depression Total Score: 2 08/08/20 23 10:07 AM EDT documented as of this encounter Care Teams Engraver Tender Relationship Specialty Start Date End Date Erin Wilcox MD [address] [place] [address] PCP - General Family Medicine 07/31/22 documented as of this encounter
--- OUTSIDE RECORDS SUMMARY | 2025-01-13 11:35 | XMS_ITS | Encounter Summary ---
Author Organization [employer] Address [address] [facility] [address] [place] [address] Care Team Providers Care Warp Starter Name Role Phone Erin Wilcox MD Primary Care Provider [phone] Encounter Details Date Type Department Care Team (Late st Contact Info) Description 01/12/2025 Orders Only [facility] [address] [place], [place] [phone] Aimsha Sanchez MD [address] [place], [place] [phone] Normocytic anemia (Primary Dx) Social History Tobacco Use Types [...] as of this encounter Plan of Treatment Scheduled Orders Name Type Priority Associated Diagnoses Orde r Schedule Iron, TIBC And Ferritin Panel Lab Routine Normocytic anemia Expected: 01/12/2025 (Approximate), Expires: 01/12/2026 Reticulocyte Count Lab Routine Normocytic anemia Expected: 01/12/2025, Expires: 01/12/2026 documented as of this encounter Visit Diagnoses Diagnosis Normocytic anemia- Primary Unspecified anemia documented in this encounter Additional Health Concerns Assessment Noted Time PHQ-9 Depression Total Score: 2 08/08/20 23 10:07 AM EDT documented as of this encounter Care Teams Warp Starter Relationship Specialty Start Date End Date Erin Wilcox MD [address] [place] [id number] PCP - General Family Medicine 07/31/22 documented as of this encounter
--- OUTSIDE RECORDS SUMMARY | 2025-01-13 11:35 | XMS_ITS | Clinical Summary ---
Author Organization [employer] Address [address] [facility] [address] [place] [address] Care Team Providers Care Motor Vehicle Operator Road Supervisor Name Role Phone Erin Wilcox MD Primary Care Provider [phone] Allergies No known active allergies Medications betamethasone [...] 3 (three) months. 0.5 mL 3 07/30/20 24 Active salicylic acid-lactic acid 17 % external solutionIndication s:Callus Apply topically Once per day. 9.8 mL 09/07/20 24 Active clobetasol (Temovate) 0.05 % creamIndications:P soriasis Apply topically if needed in the morning and at bedtime (Rash) for up to 14 days. 15 g 01/12/20 25 025 Active Hospital, Clinic, or Other Facility Administered [...] fibrous uterus on US, has referral for REGISTERED NURSE NURSERY in place, pending appt. Reports periods are less heavy with depo. Has upcoming appt with nurse. Future Appointments Date Time Provider Department Center 05/11/2024 1:00 PM [facility] [place] NURSE [facility] Lumbar back pain 08/08/2023 Assessment & [...] Encounters Date Type Department Care Team Description 01/13/2025 Telephone [facility] [address] [place] [address] Amisha Sanchez MD Results 01/12/2025 Orders Only [facility] MEDICINE [address] [place] [address] Amisha Sanchez MD Normocytic anemia (Primary Dx) 01/11/2025 10:00 AM EDT Office Visit [facility] [address] [place] [address] Jane Hassan MD Psoriasis (Primary Dx) 01/11/2025 Travel 12/24/2024 Population Health Risk Score [facility] (C3) Department [address] [place] [address] [phone] Provider, Population Health Generic 11/30/2024 Telephone [facility] [address] [place] [address] Jane Hassan MD No Show from Last 3 Months Immunizations Name Administration [...] Sign Reading Time Taken Comments Blood Pressure 112/71 01/11/2025 9:59 AM EDT Pulse 95 01/11/2025 9:59 AM EDT Temperature 37.1 ??C (98.8 ??F) 01/11/2025 9:59 AM ED T Respiratory Rate 20 01/11/2025 9:59 AM EDT Oxygen Saturation 96% 01/11/2025 9:59 AM EDT Inhaled Oxygen Concentration - - Weight 60 kg (132 lb 3.2 oz) 01/11/2025 9:59 AM EDT Height 159 cm (5' 2.6 ) 01/11/2025 9:59 AM EDT Body Mass Index 23.72 01/11/2025 9:59 AM EDT Plan of Treatment Health Maintenance Due Date Last Done Comments Alcohol/Substance Use Screening 1996 Family Planning (PISQ) 1999 Hepatitis B Vaccines (1 of 3 - 19+ 3-dose series) 2003 Pneumococcal Vaccine: Pediatrics (0 to 5 Years) and At-Risk Patients (6 to 49) Years) (1 of 2 - PCV) 2003 Dental Oral Exam 01/30/2023 07/31/2022 Dental Prophylaxis 02/06/2023 08/07/2022 Dental X-Ray: Bitewings 08/01/2023 07/31/2022 Mammogram 2024 COVID-19 Vaccine (3 - 2023-2 5 season) 2024 07/10/2021, 06/12/2021 Influenza Vaccine (#1) 2024 8, 07/06/2013 Dental X-Ray: Full Mouth 06/27/2024 06/26/2021 Depression Screening 08/08/2024 08/08/2023, 08/08/2023 DTaP/Tdap/Td Vaccines (3 - T d or Tdap) 12/01/2024 12/01/2014, 07/06/2013 SDOH Screening 02/12/2025 02/13/2024 Pap Smear 08/27/2025 08/27/2022 Tobacco Screening 01/11/2026 01/11/2025 Cervical Cancer Screening 08/27/2027 HPV/Cotest 08/27/2027 08/27/2022, [...] Procedure Name Priority Date/Time Associated Diagnosis Comments TSH W/REFLEX TO FT4 Routine 01/11/2025 1 0:29 AM EDT Abnormal uterine bleeding COMPREHENSIVE METABOLIC PANEL Routine 01/11/2025 10:29 AM EDT Abnormal uterine bleeding CBC WITH AUTO DIFFERENTIAL Routine 01/11/2025 10:29 AM EDT Abnormal uterine bleeding GROSS AND MICROSCOPIC LEVEL 3 Routine 12/20/2024 1:39 PM EDT Psoriasis HCG, QL, URINE Routine 12/20/2024 10:45 AM EDT Psoriasis HEPATITIS C ANTIBODY Routine 08/08/2023 10:39 AM EDT Encounter for health-related screening HIV ANTIBODY/ANTIGEN ([place] DPH) Routine 08/08/2023 10:39 AM EDT LIPID PANEL, STANDARD Routine 08/08/2023 10:39 AM EDT Mixed hyperlipidemia THINPREP IMAGING PAP AND HPV MRNA E6/E7 WITH REFLEX TO HPV 16,18/45 Routine 08/27/2022 10:42 AM EST from Last 3 Months or Most Recently Relevant to Health Maintenance Results * TSH W/Reflex to FT4 (01/11/2025 10:29 AM EDT) TSH reflex Free T4 1.26 0.32 - 4.0 uIU/mL [facility] Blood Venous blood specimen / Unknown 01/11/2025 10:29 AM EDT 01/11/2025 2:43 PM EDT us Erin Wilcox MD LAB BLOOD ORDERABLES Final Re sult [facility] [address] [place] [address] [phone] * (ABNORMAL) CBC auto differential (01/11/2025 10:29 AM EDT) White Blood Count 8.2 4.8 - 10.8 X10*3/uL [facility] Red Blood Count 4.28 4.20 - 5.50 X10*6/uL [facility] Hemoglobin 11.9(L) 12.0 - 16.0 g/dl [facility] Hematocrit 36.5(L) 37.0 - 47.0 % [facility] Mean Corpuscular Volume 85.3 80.0 - 98.0 fL [facility] Mean Corpuscular Hemoglobin 27.8 27.0 - 33.0 pg [facility] Mean Corpuscular HGB Conc 32.6 31.0 - 35.0 g/dl [facility] Red Cell Distribution Width 14.8 11.0 - 16.0 % [facility] Platelet Count 339 160 - 400 X10*3/uL [facility] Mean Platelet Volume 10.0 9.4 - 12.3 fL [facility] Neutrophils Percent Auto 55.2 45 - 73 % [facility] Imm Gran Pct Auto 0.2 0.0 - 0.4 % [facility] Lymphocytes Percent Auto 32.2 20 - 40 % [facility] Monocytes Percent Auto 8.6 2 - 11 % [facility] Eosinophils Percent Auto 2.8 0 - 4 % [facility] Basophils Percent Auto 1.0 0 - 2 % [facility] NRBC Pct Auto 0.0 0.0 - 0.2 /100WBC [facility] Neutrophils Absolute Auto 4.5 2.0 - 8.3 x10*3/uL [facility] Imm Gran Abs Auto 0.02 0.00 - 0.03 X10*3/uL [facility] Lymphocytes Absolute Auto 2.6 1.2 - 4.9 X10*3/uL [facility] Monocytes Absolute Auto 0.7 0.1 - 1.2 X10*3/uL [facility] Eosinophils Absolute Auto 0.2 0.0 - 0.4 X10*3/uL [facility] Basophils Absolute Auto 0.1 0.0 - 0.2 X10*3/uL [facility] NRBC Abs Auto 0.000 0.0 - 0.012 X10*3/uL [facility] Blood Venous blood specimen / Unknown 01/11/2025 10:29 AM EDT 01/11/2025 2:43 PM EDT us Erin Wilcox MD LAB BLOOD ORDERABLES Final Re sult [facility] [address] [place] [address] [phone] * (ABNORMAL) Comprehensive Metabolic Panel (01/11/2025 10:29 AM EDT) Sodium 141 135 - 145 mmol/L [facility] Potassium 3.4 3.3 - 5.1 mmol/L [facility] Chloride 110(H) 96 - 108 mmol/L [facility] Carbon Dioxide 25 22 - 29 mmol/L [facility] Anion Gap 9(L) 12 - 20 [facility] Urea Nitrogen (BUN) 7(L) 9 - 16 mg/dL [facility] Creatinine, Serum 0.53 0.5 - 1.4 mg/dL [facility] Estimated Glomerular Filt Rate >60 [facility] Comment:Chronic Kidney Disea se: Estimated GFR < 60 mL/min/[id number] Kidney Disease: Estimated GFR < 15 mL/min/1.73m2 Glucose 76 60 - 115 mg/dL [facility] Calcium 9.0 8.4 - 10.2 mg/dL [facility] Bilirubin, Total 0.3 0.0 - 1.0 mg/dL [facility] Aspartate Amino Transferase 28 5 - 31 U/L [facility] Alanine Aminotransferase 38(H) 0 - 31 U/L [facility] Total Protein 6.6 6.5 - 8.0 g/dL [facility] Albumin Level 4.1 3.5 - 5.0 g/dL [facility] Alkaline Phosphatase 90 39 - 117 U/L [facility] Blood Venous blood specimen / Unknown 01/11/2025 10:29 AM EDT 01/11/2025 2:43 PM EDT us Erin Wilcox MD LAB BLOOD ORDERABLES Final Re sult [facility] [address] [place] [phone] * Gross and Microscopic Level 3 (12/20/2024 1:39 PM EDT) 12/20/2024 1:39 PM EDT 12/20/2024 2:48 PM EDT Jean-Paul [facility] - 12/22/2024 3:25 PM EDT ----- ------- Name: Selam Douglass ?Age/Sex: 39/F ? : 1985 Unit#: [id number] ?? Attend Dr: Pat Dye MD ?Re12/20/24 ?Status: DEP SDC ? Location: HO.SSS ?Disch: ? ----- ------- SPEC : [id number] ? RECD: 12/20/24-1447 ? STATUS: ??SOUT ? REQ NUM: [id number] ? MARS: 12/20/24 ? SUBM DR: Pat Dye MD ? ENTERED: ??12/20/24 ?SP TYPE: Surgical ? OTHR DR: Jane Hassan MD ? ORDERED: ??Gross Micro L3 ? Diagnosis ?? Left small finger mass, excision: ??Verrucous and endophytic squamous proliferation (see ?? comment). ? COMMENT: ??The histologic features likely represent an endophytic verrucous vulgaris. ?Clinical History Left small finger mass ?Microscopic Description Microscopic sections reviewed. ? Material Received ?? Left small finger mass ? Gross Description Received in formalin labeled ?left small finger mass is a 1.2 x 0.7 cm ellipse of fung skin and indurated, nodular fung-white fibrous dermal tissue excised to a maximum depth of 0.5 cm. The skin surface displays a central peripherally well-demarcated indurated keratotic fung lesion measuring 0.7 cm in diameter which abuts the peripheral margins of resection and is located 0.2 cm from the nearest tip margin. ??The margins are inked and the specimen is serially sectioned to reveal a subjacent nodule with waxy, indurated and keratotic fung-white cut surfaces with a subjacent thickened white fibrous capsule versus rind at the deep margin. ??Cross-sections through the center of the specimen to include the entire lesion are submitted in cassette A1. ??The tip portions are submitted in cassette A2. CEDS This case was reviewed intradepartmentally. Copies To: ?? Jane Hassan MD ?? [facility] ?? [address] ?? [place] [address] ?? [phone] ? CONTINUED ON NEXT PAGE ----- ------- Name: Selam Douglass ?Age/Sex: 39/F ? : 1985 Unit#: [id number] ?? Attend Dr: Pat Dye MD ?Re12/20/24 ?Status: DEP SDC ? Location: HO.SSS ?Disch: ? ----- ------- SPEC : [id number] ? RECD: 12/20/24-9881 ? STATUS: ??SOUT ? REQ NUM: [id number] ? MARS: 12/20/24-4451 ? SUBM DR: Pat Dye MD ? ENTERED: ??12/20/24-9179 ?SP TYPE: Surgical ? OTHR DR: Jane Hassan MD ? ORDERED: ??Gross Micro L3 ? Copies To: ??(Continued) ?? Pat Dye MD ?? [facility] ?? [address] ?? [place] [address] ?? [phone] ----- ------- Signed (signature on file) Chelsie Todd MD 12/22/24 2365 ? ----- ------- ? END OF REPORT ? us Generic External Data Provider LAB CYTOLOGY ORDE PATRICA Final Result Performing Organization Address City/State/[facility] de Phone Number [facility] [address] [place] [address] [phone] * HCG, Qualitative, Urine (12/20/2024 10:45 AM EDT) Pathologist [facility] Urine NEGATIVE NEGATIVE [facility] Comment:This test was develo ped to detect early . Falsenegative results may occur after the 5th - 7th week ofpregnancy when using this test method. If clinicallyindicated, consider a serum hCG. 12/20/2024 10:4 5 AM EDT 12/20/2024 10:49 AM EDT us Generic External Data Provider LAB URINE ORDERAB LES Final Result Performing Organization Address [facility] de Phone Number [facility] [address] [place] [address] [phone] * Hepatitis C Ab (08/08/2023 10:39 AM EDT) [facility] Hepatitis C Antibody Nonreactive Nonreactive [facility] Comment:Antibodies to HCV no t detected; does not exclude early acuteHCV infection. Blood Venous blood specimen / Unknown 08/08/2023 10:39 AM EDT 08/08/2023 2:46 PM EDT us Erin Wilcox MD LAB BLOOD ORDERABLES Final Re sult Performing Organization Address [facility] Co de Phone Number [facility] [address] [place] [address] [phone] * HIV Ab/Ag ([place] DP) (08/08/2023 10:39 AM EDT) Pathologist [facility] HIV AB/AG Nonreactive Nonreactive [facility] Comment:HIV-1 p24 Ag and/or HIV-1/HIV-2 Ab not detected.A test result that is nonreactive does not exclude thepossibility of exposure to or infection with HIV-1 and/orHIV-2. Nonreactive results in this assay for individualswith prior exposure to HIV-1 and/or HIV-2 may be due toantigen and antibody levels that are below the limit ofdetection of this assay.The [employer] HIV Ag/Ab Combo assay result andsupplemental assay results should be interpreted inconjunction with the patient's clinical presentation,history and other laboratory results. If the results areinconsistent with clinical evidence, additional testing issuggested to confirm the result. 08/08/2023 10:3 9 AM EDT 08/08/2023 2:46 PM EDT us Erin Wilcox MD LAB BLOOD ORDERABLES Final Re sult [facility] [address] [place] [address] [phone] * (ABNORMAL) Lipid Panel, Standard (08/08/2023 10:39 AM EDT) Triglycerides 77 <150 mg/dL [facility] Comment:Desirable Triglyceri de: less than 150 mg/dLBorderline High Triglyceride 150-199 mg/dLHigh Triglyceride: 200-499 mg/dLVery High Triglyceride: greater than or equal to 5OO mg/dL Cholesterol 209(H) <200 mg/dL [facility] Comment:Desirable Cholestero l: less than 200 mg/dLBorderline High Cholesterol: 200-239 mg/dLHigh Cholesterol: greater than 239 mg/dL LDL Cholesterol Calculated 158(H) <100 mg/dL [facility] Comment:Desirable LDL: less than 100 mg/dLNear Optimal/Above Optimal LDL: 110- 129 mg/dLBorderline High LDL: 130-159 mg/dLHigh LDL: 160-189 mg/dLVery High LDL: greater than or equal to 190 mg/dL HDL Cholesterol 36(L) >40 mg/dL [facility] Comment:Desirable HDL: great er than 40 mg/dL Note: This HDL assay may give artificially low results in patients with liver disease. Blood Venous blood specimen / Unknown 08/08/2023 10:39 AM EDT 08/08/2023 2:46 PM EDT us Erin Wilcox MD LAB BLOOD ORDERABLES Final Re sult [facility] [address] [place] [address] [phone] * THINPREP TIS PAP AND HPV [...] with computer assisted technology. [facility] [employer] Consultant : SEE COMMENT [facility] Comment: [place], CT(ASCP) CT screening location: [address] ??[phone] HPV nRNA E6/E7 Not Detected Not Detected [facility] Comment: Methodology: Bread Wrapper-Mediated Amplification This assay detects E6/E7 viral messenger RNA (mRNA) from 14 high-risk HPV types (16,18,31,33,35,39,45,51,52,56,58,59,66,68). ? Cervical sources are required for HPV testing. If a vaginal source from a patient who has had a total hysterectomy with removal of cervix was ?? submitted, please contact the testing laboratory for alternative testing options. ?? For additional information, please refer to http://education.[employer]/faq/LBX656q7 (This link if provided for information/ educational purposes only.) Interpretation/R esult: Negative for intraepithelial lesion or malignancy. [facility] LMP: 08/19 [facility] Prev. BX: NONE GIVEN [facility] Prev. PAP: 2016 NIL/NEG CONVER [facility] SOURCE: None given [facility] Statement Of Adequacy: SEE COMMENT [facility] Comment: Satisfactory for evaluation. Endocervical/transformation zone component absent. 08/27/2022 10:4 2 AM EST Mechelle Thompson CNM LAB PATHOLOGY ORDERABLES Final Result [facility] from Last 3 Months or Most Recently Relevant to Health Maintenance Insurance [facility] C3 DENTAL-[facility] MEDICAID STAND ADULT Care Teams Motor Vehicle Operator Road Supervisor Relationship Specialty Start Date End Date Erin Wilcox MD [address] [place] [address] PCP - General Family Medicine 07/31/22
--- OUTSIDE RECORDS SUMMARY | 2025-01-13 11:35 | XMS_ITS | Encounter Summary ---
Author Organization [employer] Address [address] [facility] [address] [place] [address] Care Team Providers Care Contracts Specialist Name Role Phone Erin Wilcox MD Primary Care Provider [phone] Encounter Details Date Type Department Care Team (Latest Contact Info) Description 01/11/2025 Travel Social History Tobacco Use Types Packs/Day Years [...] documented as of this encounter Care Teams Contracts Specialist Relationship Specialty Start Date End Date Erin Wilcox MD [address] [place] [address] PCP - General Family Medicine 07/31/22 documented as of this encounter
--- OUTSIDE RECORDS SUMMARY | 2025-01-13 11:35 | XMS_ITS | Encounter Summary ---
Author Organization [employer] Address [address] [facility] [address] [place] [address] Care Team Providers Care Solution Lead Name Role Phone Erin Wilcox MD Primary Care Provider [phone] Reason for Visit * Reason Comments Psoriasis Encounter Details Date Type Department Care Team ([facility] st Contact Info) Description 01/11/2025 10:00 AM EDT Office Visit [facility] [address] [place], [place] [phone] Jane Hassan MD [address] [place] [address] Psoriasis (Primary Dx) Social History Tobacco Use [...] AM EDT documented as of this encounter Last Filed Vital Signs Vital Sign Reading [...] Mass Index 23.72 01/11/2025 9:59 AM EDT documented in this encounter Progress Notes * Jane Hassan MD - 01/11/2025 10:00 AM EDT Subjective Patient ID: Selam Douglass is a 39 y.o. female who presents for Psoriasis. Psoriasis Pt is on stelara and is doing well. The medication is well tolerated. Pt is s/p excision of a lesion of the right index and left forearm ( path c/w a wart of the index and Epidermal cyst of the left forearm). Patient Active Problem List Diagnosis Psoriasis Mixed hyperlipidemia Other eosinophilia Lumbar back pain Encounter for health-related screening Abnormal uterine bleeding (AUB) Breast cancer screening by mammogram No Known Allergies Current Outpatient Medications on File Prior to Visit Medication Sig Dispense Refill betamethasone dipropionate (Diprolene) 0.05 % ointment APPLY A THIN LAYER TO THE AFFECTED AREA(s) TWICE DAILY calcipotriene (Dovonex) 0.005 % ointment APPLY A THIN LAYER TO THE AFFECTED AREA(s) DAILY, RUB IN gently AND completely diclofenac (Cataflam) 50 MG tablet Take 1 tablet (50 mg) by mouth 3 times daily. 90 tablet 0 medroxyPROGESTERone (Depo-Provera) 150 MG/ML injection Inject 1 mL (150 mg) into the shoulder, thigh, or buttocks every 3 (three) months. 1 mL 3 Multiple Vitamin (multivitamin) tablet Take 1 tablet by mouth Once per day. 90 tablet 3 Otezla 30 MG tablet Take 30 mg by mouth every 12 (twelve) hours. rosuvastatin (Crestor) 10 MG tablet TAKE ONE TABLET EVERY MORNING 90 tablet 1 salicylic acid-lactic acid 17 % external solution Apply topically Once per day. 9.8 mL 0 Stelara injection INJECT 45 MG SUBCUTANEOUSLY ON DAY 0 AND REPEAT ON DAY 30 0.5 mL 1 triamcinolone (Kenalog) 0.1 % ointment Apply topically 2 times daily. 453.6 g 11 ustekinumab (Stelara) 45 MG/0.5ML injection Inject 0.5 mL (45 mg) under the skin every 3 (three) months. 0.5 mL 3 Current Facility-Administered Medications on File Prior to Visit Medication Dose Route Frequency Provider Last Rate Last Admin medroxyPROGESTERone (Depo-Provera) injection 150 mg 150 mg Intramuscular q3 months Erin Wilcox MD 150 mg at 02/23/24 1545 Review of Systems Constitutional: Negative for appetite change, chills and diaphoresis. Respiratory: Negative for cough, choking and shortness of breath. Gastrointestinal: Negative for constipation, diarrhea and nausea. Skin: Negative for pallor and rash. Objective BP 112/71 (BP Location: Left arm, Patient Position: Sitting, BP Cuff Size: Adult) Pulse 95 Temp98.8 ??F (37.1 ??C) (Oral) Resp 20 Ht 5' 2.6 (1.59 m) Wt 132 lb 3.2 oz (60 kg) SpO2 96% BMI 23.72 kg/m?? Physical Exam Constitutional: General: She is not in acute distress. Appearance: Normal appearance. She is not ill-appearing, toxic-appearing or diaphoretic. Pulmonary: Effort: Pulmonary effort is normal. Skin: Comments: 1) well healed scar of the right index and left posterior forearm 2) rest of skin is clear. Neurological: Mental Status: She is alert. Assessment/Plan Diagnoses and all orders for this visit: Psoriasis Comments: Continu w/ stelara T Spot . Pt will be called w/ results. Orders: - clobetasol (Temovate) 0.05 % cream; Apply topically if needed in the morning and at bedtime (Rash) for up to 14 days. documented in this encounter Plan of Treatment Not on file documented as of this encounter Visit Diagnoses Diagnosis Psoriasis- Primary Other psoriasis documented in this encounter Additional Health Concerns Assessment Noted Time PHQ-9 Depression Total Score: 2 08/08/20 23 10:07 AM EDT documented as of this encounter Care Teams Solution Lead Relationship Specialty Start Date End Date Erin Wilcox MD [address] [place] [phone] PCP - General Family Medicine 07/31/22 documented as of this encounter
--- OUTSIDE RECORDS SUMMARY | 2025-01-13 11:36 | XMS_ITS | Encounter Summary ---
Author Organization [employer] [facility] Address [address] [facility] [address] [place] [address] Care Team Providers Care Citizen Participation Specialist Name Role Phone Erin Wilcox MD Primary Care Provider [phone] Encounter Details Date Type Department Care Team (Latest Contact Info) Description 07/25/2021 Abstract [facility] CONVERSIONS Dental, Provider, DDS Social History [...] on filedocumented in this encounter Care Teams Citizen Participation Specialist Relationship Specialty Start Date End Date Erin Wilcox MD [address] [place] [address] PCP - General Family Medicine 07/31/22 documented as of this encounter
--- OUTSIDE RECORDS SUMMARY | 2025-01-13 11:36 | XMS_ITS | Encounter Summary ---
Author Organization [employer] [facility] Address [address] [facility] [address] [place] [address] Care Team Providers Care Daycare Assistant Name Role Phone Erin Wilcox MD Primary Care Provider [phone] Encounter Details Date Type Department Care Team (Latest Contact Info) Description 09/07/2019 Abstract [facility] CONVERSIONS Dental, Provider, DDS Social History [...] on filedocumented in this encounter Care Teams Daycare Assistant Relationship Specialty Start Date End Date Erin Wilcox MD [address] [place] [address] PCP - General Family Medicine 07/31/22 documented as of this encounter
--- OUTSIDE RECORDS SUMMARY | 2025-01-13 11:36 | XMS_ITS | Encounter Summary ---
Author Organization [employer] [facility] Address [address] [facility] [address] [place] [address] Care Team Providers Care Fur Cutter Name Role Phone Erin Wilcox MD Primary Care Provider Encounter Details Date Type Department Care Team (Latest Contact Info) Description 07/31/2022 Abstract [facility] CONVERSIONS Dental, Provider, DDS Social History [...] on filedocumented in this encounter Care Teams Fur Cutter Relationship Specialty Start Date End Date Erin Wilcox MD [address] [place] [address] PCP - General Family Medicine 07/31/22 documented as of this encounter
--- OUTSIDE RECORDS SUMMARY | 2025-01-13 11:36 | XMS_ITS | Encounter Summary ---
Author Organization [employer] [facility] Address [address] [facility] [address] [place] [address] Care Team Providers Care Floor Steward/Stewardess Name Role Phone Erin Wilcox MD Primary Care Provider [phone] Encounter Details Date Type Department Care Team (Latest Contact Info) Description 08/07/2020 Abstract [facility] CONVERSIONS Dental, Provider, DDS Social [...] on filedocumented in this encounter Care Teams Floor Steward/Stewardess Relationship Specialty Start Date End Date Erin Wilcox MD [address] [place] [address] PCP - General Family Medicine 07/31/22 documented as of this encounter
--- OUTSIDE RECORDS SUMMARY | 2025-01-13 11:36 | XMS_ITS | Encounter Summary ---
Author Organization [employer] Address [address] [facility] [address] [place] [address] Care Team Providers Care Lacrosse Coach Name Role Phone Erin Wilcox MD Primary Care Provider [phone] Encounter Details Date Type Department Care Team (Late st Contact Info) Description 09/14/2024 Orders Only [facility] [address] [place], [place] [phone] Jane Hassan MD [address] [place], [place] [phone] Psoriasis (Primary Dx) Social History Tobacco Use [...] the past 12 months, has t he imbookin ([employer]), gas, oil or water company threatened to [...] Comments GROSS AND MICROSCOPIC LEVEL 3 Routine 12/20/2024 1:39 PM EDT Psoriasis HCG, QL, URINE Routine 12/20/2024 10:45 AM EDT Psoriasis GROSS AND MICROSCOPIC LEVEL 3 Routine 09/30/2024 11:46 AM EST Psoriasis documented in this encounter Results * Gross and Microscopic Level 3 (12/20/2024 1:39 PM EDT) 12/20/2024 1:39 PM EDT 12/20/2024 2:48 PM EDT [facility] - 12/22/2024 3:25 PM EDT ----- ------- Name: Selam Douglass ?Age/Sex: 39/F ? : 1985 Unit#: [id number] ?? Attend Dr: Pat Dye MD ?Re12/20/24 ?Status: DEP SDC ? Location: HO.SSS ?Disch: ? ----- ------- SPEC : [id number] ? RECD: 12/20/242 ? STATUS: ??SOUT ? REQ NUM: [id number] ? MARS: 12/20/24-2721 ? SUBM DR: Pat Dye MD ? ENTERED: ??12/20/242878 ?SP TYPE: Surgical ? OTHR DR: Jane [...] Copies To: ?? Jane Hassan MD ?? [facility] ?? [address] [place] [address] ?? [place] [address] ?? [phone] ? CONTINUED ON NEXT PAGE ----- ------- Name: Selam Douglass ?Age/Sex: 39/F ? : 1985 Unit#: [id number] ?? Attend Dr: Pat Dye MD ?Re/10/25 ?Status: DEP SDC ? Location: HO.SSS ?Disch: ? ----- ------- SPEC : [id number] ? RECD: 12/20/24 ? STATUS: ??SOUT ? REQ NUM: [id number] ? MARS: 12/20/24-5160 ? SUBM DR: Pat Dye MD ? ENTERED: ??12/20/245486 ?SP TYPE: Surgical ? OTHR DR: Jane Hassan MD ? ORDERED: ??Gross Micro L3 ? Copies To: ??(Continued) ?? Pat Dye MD ?? [facility] ?? [address] ?? [place] [address] ?? [phone] ----- ------- Signed (signature on file) Chelsie Todd MD 12/22/24 1525 ? ----- ------- ? END OF REPORT ? Generic External Data Provider LAB CYTOLOGY ORDE RABLES Final Result Performing Organization Address [facility] de Phone Number [facility] [address] [place] [address] [phone] * HCG, Qualitative, Urine (12/20/2024 10:45 AM EDT) Urine NEGATIVE NEGATIVE [facility] Comment:This test was develo ped to detect early . Falsenegative results may occur after the 5th - 7th week ofpregnancy when using this test method. If clinicallyindicated, consider a serum hCG. 12/20/2024 10:4 5 AM EDT 12/20/2024 10:49 AM EDT Generic External Data Provider LAB URINE ORDERAB LES Final Result Performing Organization Address [facility] de Phone Number [facility] [address] [place] [address] [phone] Gross and Microscopic Level 3 (09/30/2024 11:46 AM EST) 09/30/2024 11:4 6 AM EST 09/30/2024 12:03 PM EST Narrative [facility] - 10/01/2024 5:00 PM EST ----- ------- Name: Selam Douglass ?Age/Sex: 39/F ? : 1985 Unit#: [id number] ?? Attend Dr: Urban Diaz MD ?Re09/30/24 ?Status: DEP REF ? Location: HO.LNP ?Disch: ? ----- ------- SPEC : [id number] ? RECD: 09/30/24-1203 ? STATUS: ??SOUT ? REQ NUM: [id number] ? MARS: 09/30/24-1146 ? SUBM DR: Urban [...] containing white-yellow cheesy and keratotic material. ??A customer solutions representative section from each is submitted in a cassette labeled A1. CEDS Copies To: ?? Urban Diaz MD ?? [facility] ?? [address] ?? [place] [address] ?? [phone] ?? Erin Wilcox MD ?? [address] ?? [place] [address] ?? [phone] ? CONTINUED ON NEXT PAGE ----- ------- Name: Selam Douglass ?Age/Sex: 39/F ? : 1985 Unit#: [id number] ?? Attend Dr: Urban Diaz MD ?Re09/30/24 ?Status: DEP REF ? Location: HO.LNP ?Disch: ? ----- ------- SPEC : [id number] ? RECD: 09/30/24-1203 ? STATUS: ??SOUT ? REQ NUM: [id number] ? MARS: 09/30/24-1146 ? SUBM DR: Urban Diaz MD ? ENTERED: ??09/30/24-3 ?SP TYPE: Surgical ? OTHR DR: Erin Wilcox MD ? ORDERED: ??Gross Micro L3 ? ----- ------- Signed (signature on file) Surjit Galeano MD 10/01/24 1700 ? ----- ------- ? END OF REPORT ? us Generic External Data Provider LAB CYTOLOGY ORDE RABLES Final Result [facility] [address] [place] [address] [phone] documented in this encounter Visit Diagnoses Diagnosis Psoriasis- Primary Other psoriasis documented in this encounter Additional Health Concerns Assessment Noted Time PHQ-9 Depression Total Score: 2 08/08/20 23 10:07 AM EDT documented as of this encounter Care Teams Lacrosse Coach Relationship Specialty Start Date End Date Erin Wilcox MD [address] [place] [phone] PCP - General Family Medicine 07/31/22 documented as of this encounter
[2025-01-13 14:15] LABS: Immature Retic Fraction 15.4 % (3.0-15.9); Reticulocyte Percent 1.3 % (0.5-1.8); Reticulocytes Absolute 0.055 X10*6/uL (0.026-0.095)
== END 2025-01-13 10:29 | disposition home or self-care (01) ==
LOC: HO.CHCLDS 10:28
PROVIDERS: Visit Provider General Practice
DX: D64.9 Anemia, unspecified (principal)
CPT/HCPCS: 36415; 85045

== ENCOUNTER 2025-02-15 10:31 | Outpatient (AMB) | payer MEDICAID, SELFPAY ==
[2025-02-15 10:45] VITALS: BMI 20.7
--- NOTE | 2025-02-15 10:45 | MHC.OFFVIS ---
Vital Signs 02/15/25 10:45 Height 5 ft 6 in Weight 128 lb BMI 20.7 Intake Visit Reasons: O/V Discuss R SF DIP Arthrodesis Intake Note: Selam 39 yr old right hand dominant female presents today for to discuss right small finger DIP Arthrodesis with Dr. Dye. Patient last seen with Ady Juan for S/P left small finger volar mass exc biopsy 12/20/[address] Dye. Allergies No Known Allergies Allergy (Mild, Verified 02/15/25 10:46) NONE HPI HPI O/V Discuss R SF DIP Arthrodesis: Details: Selam is a 39 year old right hand dominant woman who returns to discuss her left small finger mallet finger She says she struck the tip of her small finger while gardening, sometime in ~03/2024. Since that injury she has not been able to fully extend her small finger DIP joint. She is S/P left small finger mass removal, DOS: 12/20/24. She has no complaints following this surgery. 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 Passively reducible Radiographs: 3 views of the left hand, with attention to the small finger, were taken and viewed by me today in clinic. They show no fractures, dislocations,m or arthritic changes. Pathology report 12/20/24 Diagnosis Left small finger mass, excision: Verrucous and endophytic squamous proliferation (see comment). COMMENT: The histologic features likely represent an endophytic verrucous vulgaris. Assessment & Plan Assessment & Plan (1) Mallet finger of left hand: Comment: SF Code(s): M20.012 - Mallet finger of left finger(s) Category: Medical (2) Verruca vulgaris: Comment: L SF Code(s): B07.9 - Viral wart, unspecified Category: Medical Plan Assessment & Plan: 1. Left small finger mallet finger From an injury in ~03/2024 I educated her about this condition I discussed operative and non-operative treatment options The patient would like to proceed with surgery The risks and benefits of operative treatment were discussed with the patient and the patient wishes to proceed with surgery. These risks include, but are not limited to risk of damage to blood vessels, nerves, tendons, infection, recurrence, incomplete relief of preoperative symptoms, persistent pain, possible need for further surgery and the risks associated with regional blocks and anesthesia. The plan is to take the patient to the operating room sometime in the next few weeks for the following procedures: 1. Left small finger DIP joint CRPP, under general All of the preoperative paperwork including the consent was reviewed today. All the patient's questions were answered. The patient understands that they will be contacted by our benzene operator soon to schedule this procedure She denies Diabetes, blood thinners, asthma, heart, lung, kidney issues 2. Left small finger wart, S/P excision DOS: 12/20/24 Scribed for Pat Dye MD by Kingsley Cuevas manager of medical, on 02/15/25 at 11:05 AM, EST. Coding Level of Care Code Est Pt Level 4 (75629) Diagnoses Mallet finger of left hand M20.012 Verruca vulgaris B07.9
--- OUTSIDE RECORDS SUMMARY | 2025-02-15 12:06 | XMS_ITS | Encounter Summary ---
Author Organization [employer] Address [address] [facility] [address] [place] [address] Care Team Providers Care Campus Coordinator Name Role Phone Erin Wilcox MD Primary Care Provider [phone] Encounter Details Date Type Department Care Team (Late st Contact Info) Description 01/12/2025 Orders Only [facility] [address] [place], [place] [phone] Amisha Sanchez MD [address] [place], [place] [phone] Normocytic anemia (Primary Dx) Social History Tobacco [...] Normocytic anemia Expected: 01/12/2025 (Approximate), Expires: 01/12/2026 documented as of this encounter Procedures Procedure Name Priority Date/Time Associated Diagnosis Comments RETICULOCYTE COUNT Routine 01/13/2025 10 :32 AM EDT Normocytic anemia documented in this encounter Results * Reticulocyte Count (01/13/2025 10:32 AM EDT) Reticulocytes Absolute 0.055 0.026 - 0.095 X10*6/uL [facility] Immature Retic Fraction 15.4 3.0 - 15.9 % [facility] Retic HGB Equivalent 32.0 30.0 - 35.0 pg [facility] Reticulocyte Percent 1.3 0.5 - 1.8 % [facility] Blood Venous blood specimen / Unknown 01/13/2025 10:32 AM EDT 01/13/2025 2:04 PM EDT us Amisha Sanchez MD LAB BLOOD ORDERABLES Final Res ult [facility] [address] [place] [phone] documented in this encounter Visit Diagnoses Diagnosis Normocytic anemia- Primary Unspecified anemia documented in this encounter Additional Health Concerns Assessment Noted Time PHQ-9 Depression Total Score: 2 08/08/20 10:07 AM EDT documented as of this encounter Care Teams Campus Coordinator Relationship Specialty Start Date End Date Erin Wilcox MD [address] [place] [address] PCP - General Family Medicine 07/31/22 documented as of this encounter
--- OUTSIDE RECORDS SUMMARY | 2025-02-15 12:06 | XMS_ITS | Clinical Summary ---
Author Organization [employer] Address [address] [facility] 7[address] [place] [address] Care Team Providers Care Printer Maintainer Name Role Phone Erin Wilcox MD Primary Care Provider [phone] Allergies No known active allergies Medications betamethasone dipropionate (Diprolene) 0.05 % ointment APPLY A THIN LAYER TO THE AFFECTED AREA(s) TWICE DAILY 09/10/20 22 Active calcipotriene (Dovonex) 0.005 % ointment APPLY A THIN LAYER TO THE AFFECTED AREA(s) DAILY, RUB IN gently AND completely 08/07/20 22 Active rosuvastatin (Crestor) 10 MG tabletIndications :Mixed hyperlipidemia TAKE ONE TABLET EVERY MORNING 90 tablet 1 05/08/20 23 Active triamcinolone (Kenalog) 0.1 % ointmentIndicatio ns:Psoriasis Apply topically 2 times daily. 453.6 g 11 07/08/20 23 Active Otezla 30 MG tablet Take 30 mg by mouth every 12 (twelve) hours. 10/22/19 23 Active diclofenac (Cataflam) 50 MG tablet Take 1 tablet (50 mg) by mouth 3 times daily. 90 tablet 08/08/20 23 Active medroxyPROGESTERo ne (Depo-Provera) 150 MG/ML injection Inject 1 mL (150 mg) into the shoulder, thigh, or buttocks every 3 (three) months. 1 mL 3 02/23/20 24 Active Multiple Vitamin (multivitamin) tablet Take 1 tablet by mouth Once per day. 90 tablet 3 02/23/20 24 Active Stelara injectionIndicati ons:Psoriasis INJECT 45 MG SUBCUTANEOUSLY ON DAY 0 AND REPEAT ON DAY 30 0.5 mL 1 07/30/20 24 Active ustekinumab (Stelara) 45 MG/0.5ML injectionIndicati ons:Psoriasis Inject 0.5 mL (45 mg) under the skin every 3 (three) months. 0.5 mL 3 07/30/20 24 Active salicylic acid-lactic acid 17 % external solutionIndicatio ns:Callus Apply topically Once per day. 9.8 mL 09/07/20 24 Active clobetasol (Temovate) 0.05 % creamIndications: Psoriasis Apply topically if needed in the morning and at bedtime (Rash) for up to 14 days. 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 Reports periods are less heavy with depo. Has upcoming appt with nurse. Future Appointments Date Time Provider Department Center 05/11/2024 1:00 PM [facility] NURSE [facility] Lumbar back pain 08/08/2023 Assessment & Plan [...] Type Department Care Team Description 01/13/2025 Telephone [facility] [address] [place] [address] Amisha Sanchez MD Results 01/12/2025 Orders Only [facility] [address] [place], [place] [phone] Amisha Sanchez MD Normocytic anemia (Primary Dx) 01/11/2025 10:00 AM EDT Office Visit [facility] [address] [place] [address] Jane Hassan MD Psoriasis (Primary Dx) 01/11/2025 Travel 12/24/2024 Population Health Risk Score [facility] ([facility]) Department [address] [place] [phone] Provider, Population Health Generic 11/30/2024 Telephone [facility] [address] [place] [address] Jane Hassan MD No Show from Last [...] 01/13/2025 10 :32 AM EDT Normocytic anemia T-SPOT(R).TB Routine 01/11/2025 10:29 AM EDT Psoriasis TSH W/REFLEX TO FT4 Routine 01/11/2025 1 [...] Recently Relevant to Health Maintenance Results * Reticulocyte Count (01/13/2025 10:32 AM EDT) Reticulocytes Absolute 0.055 0.026 - 0.095 X10*6/uL [facility] Immature Retic Fraction 15.4 3.0 - 15.9 % [facility] Retic HGB Equivalent 32.0 30.0 - 35.0 pg [facility] Reticulocyte Percent 1.3 0.5 - 1.8 % [facility] Blood Venous blood specimen / Unknown 01/13/2025 10:32 AM EDT 01/13/2025 2:04 PM EDT us Amisha Sanchez MD LAB BLOOD ORDERABLES Final Res ult [facility] [address] [place] [address] [phone] * T-SPOT??.TB (01/11/2025 10:29 AM EDT) T Spot TB Negative Negative [facility] Comment:A negative test resu lt does not exclude the possibilityof exposure to or infection with Mycobacteriumtuberculosis (M. tuberculosis). Patients with recentexposure to TB infected individuals exhibiting anegative T-SPOT.TB result should be considered forretesting within 6 weeks or if other relevant clinicalsymptoms indicate. Results from T-SPOT.TB testing mustbe used in conjunction with each individual'sepidemiological history, current medical status,and results of other diagnostic evaluations.The T-SPOT.TB test is qualitative and results arereported as positive, borderline, or negative, giventhat the test controls perform as expected. In linewith the Centers for Disease Control and Prevention's2010 recommendation to report quantitative measurementsalongside the qualitative result, the laboratoryprovides spot counts for informational purposes only.The T-SPOT.TB test should not be interpreted as aquantitative test. TS PANEL A 0 [facility] TS PANEL B 0 [facility] Negative Control Passed [facility] Positive Control Passed [facility] Comment:For additional infor peter, please refer tohttp://education.Presella.com.[employer]/faq/HUX589(This link is being provided for informational/educational purposes only.)THIS TEST WAS PERFORMED AT:[employer] [id number] [place] [address]ASQSTVTMICHAEL LA MD,PHD 01/11/2025 10:2 9 AM EDT 01/11/2025 2:43 PM EDT us Jane Hassan MD LAB BLOOD ORDERABLES Final Result Performing Organization Address City/[facility]/ZIP Co de Phone Number [facility] [address] [place] [address] [phone] * TSH W/Reflex to FT4 (01/11/2025 10:29 AM EDT) TSH reflex Free T4 1.26 0.32 - 4.0 uIU/mL [facility] Blood Venous blood specimen / Unknown 01/11/2025 10:29 AM EDT 01/11/2025 2:43 PM EDT us Erin Wilcox MD LAB BLOOD ORDERABLES Final Re sult [facility] [address] [place] [address] [phone] * (ABNORMAL) CBC auto differential (01/11/2025 10:29 AM EDT) White Blood Count 8.2 4.8 - 10.8 X10*3/uL [facility] Red Blood Count 4.28 4.20 - 5.50 X10*6/uL [facility] Hemoglobin 11.9(L) 12.0 - 16.0 g/dl [facility] Hematocrit 36.5(L) 37.0 - 47.0 % [facility] Mean Corpuscular Volume 85.3 80.0 - 98.0 fL [facility] Mean Corpuscular Hemoglobin 27.8 27.0 - 33.0 pg [facility] Mean Corpuscular HGB Conc 32.6 31.0 - 35.0 g/dl [facility] Red Cell Distribution Width 14.8 11.0 - 16.0 % [facility] Platelet Count 339 160 - 400 X10*3/uL [facility] Mean Platelet Volume 10.0 9.4 - 12.3 fL [facility] Neutrophils Percent Auto 55.2 45 - 73 % [facility] Imm Gran Pct Auto 0.2 0.0 - 0.4 % [facility] Lymphocytes Percent Auto 32.2 20 - 40 % [facility] Monocytes Percent Auto 8.6 2 - 11 % [facility] Eosinophils Percent Auto 2.8 0 - 4 % [facility] Basophils Percent Auto 1.0 0 - 2 % [facility] NRBC Pct Auto 0.0 0.0 - 0.2 /100WBC [facility] Neutrophils Absolute Auto 4.5 2.0 - 8.3 x10*3/uL [facility] Imm Gran Abs Auto 0.02 0.00 - 0.03 X10*3/uL [facility] Lymphocytes Absolute Auto 2.6 1.2 - 4.9 X10*3/uL [facility] Monocytes Absolute Auto 0.7 0.1 - 1.2 X10*3/uL [facility] Eosinophils Absolute Auto 0.2 0.0 - 0.4 X10*3/uL [facility] Basophils Absolute Auto 0.1 0.0 - 0.2 X10*3/uL [facility] NRBC Abs Auto 0.000 0.0 - 0.012 X10*3/uL [facility] Blood Venous blood specimen / Unknown 01/11/2025 10:29 AM EDT 01/11/2025 2:43 PM EDT us Erin Wilcox MD LAB BLOOD ORDERABLES Final Re sult [facility] [address] [place] [phone] * (ABNORMAL) Comprehensive Metabolic Panel (01/11/2025 10:29 AM EDT) Sodium 141 135 - 145 mmol/L [facility] Potassium 3.4 3.3 - 5.1 mmol/L [facility] Chloride 110(H) 96 - 108 mmol/L [facility] Carbon Dioxide 25 22 - 29 mmol/L [facility] Anion Gap 9(L) 12 - 20 [facility] Urea Nitrogen (BUN) 7(L) 9 - 16 mg/dL [facility] Creatinine, Serum 0.53 0.5 - 1.4 mg/dL [facility] Estimated Glomerular Filt Rate >60 [facility] Comment:Chronic Kidney Disea se: Estimated GFR < 60 mL/min/1.15t3Wtlgeq Kidney Disease: Estimated GFR < 15 mL/min/1.73m2 Glucose 76 60 - 115 mg/dL [facility] Calcium 9.0 8.4 - 10.2 mg/dL [facility] Bilirubin, Total 0.3 0.0 - 1.0 mg/dL [facility] Aspartate Amino Transferase 28 5 - 31 U/L [facility] Alanine Aminotransferase 38(H) 0 - 31 U/L [facility] Total Protein 6.6 6.5 - 8.0 g/dL [facility] Albumin Level 4.1 3.5 - 5.0 g/dL [facility] Alkaline Phosphatase 90 39 - 117 U/L [facility] Blood Venous blood specimen / Unknown 01/11/2025 10:29 AM EDT 01/11/2025 2:43 PM EDT us Erin Wilcox MD LAB BLOOD ORDERABLES Final Re sult [facility] [address] [place] [phone] * Gross and Microscopic Level 3 (12/20/2024 1:39 PM EDT) 12/20/2024 1:39 PM EDT 12/20/2024 2:48 PM EDT Narrative [facility] - 12/22/2024 3:25 PM EDT ----- ------- Name: Selam Douglass ?Age/Sex: 39/F ? : 1985 Unit#: [id number] ?? Attend Dr: Pat Dye MD ?Re12/20/24 ?Status: DEP SDC ? Location: HO.SSS ?Disch: ? ----- ------- SPEC : [id number] ? RECD: 12/20/247 ? STATUS: ??SOUT ? REQ NUM: [id number] ? MARS: 12/20/24-6191 ? SUBM DR: Pat Dye MD ? ENTERED: ??12/20/24-5766 ?SP TYPE: Surgical ? OTHR DR: Jane [...] Copies To: ?? Jane Hassan MD ?? [facility] ?? [address] [place] [address] ?? [place] [address] ?? [phone] ? CONTINUED ON NEXT PAGE ----- ------- Name: Selam Douglass ?Age/Sex: 39/F ? : 1985 Unit#: [id number] ?? Attend Dr: Pat Dye MD ?Re12/20/24 ?Status: DEP SD ? Location: HO.SSS ?Disch: ? ----- ------- SPEC : [id number] ? RECD: 12/20/24 ? STATUS: ??SOUT ? REQ NUM: [id number] ? MARS: 12/20/24-6705 ? SUBM DR: Pat Dye MD ? ENTERED: ??12/20/24-5703 ?SP TYPE: Surgical ? OTHR DR: Jane Hassan MD ? ORDERED: ??Gross Micro L3 ? Copies To: ??(Continued) ?? Pat Dye MD ?? [facility] ?? [address] ?? [place] [address] ?? [phone] ----- ------- Signed (signature on file) Chelsie Todd MD 12/22/24 1525 ? ----- ------- ? END OF REPORT ? Generic External Data Provider LAB CYTOLOGY ORDE RABLES Final Result Performing Organization Address [facility] de Phone Number [facility] [address], [place] [phone] * HCG, Qualitative, Urine (12/20/2024 10:45 AM EDT) [facility] Urine NEGATIVE NEGATIVE [facility] Comment:This test was develo ped to detect early . Falsenegative results may occur after the 5th - 7th week ofpregnancy when using this test method. If clinicallyindicated, consider a serum hCG. 12/20/2024 10:4 5 AM EDT 12/20/2024 10:49 AM EDT Generic External Data Provider LAB URINE ORDERAB LES Final Result Performing Organization Address [facility] Co de Phone Number [facility] [address] [place] [address] [phone] * Hepatitis C Ab (08/08/2023 10:39 AM EDT) [facility] Hepatitis C Antibody Nonreactive Nonreactive [facility] Comment:Antibodies to HCV no t detected; does not exclude early acuteHCV infection. Blood Venous blood specimen / Unknown 08/08/2023 10:39 AM EDT 08/08/2023 2:46 PM EDT us Erin Wilcox MD LAB BLOOD ORDERABLES Final Re sult Performing Organization Address City[facility]/ZIP Co de Phone Number [facility] [address] [place] [address] [phone] * HIV Ab/Ag ([place] [facility]) (08/08/2023 10:39 AM EDT) [facility] HIV AB/AG Nonreactive Nonreactive [facility] Comment:HIV-1 p24 Ag and/or HIV-1/HIV-2 Ab not detected.A test result that is nonreactive does not exclude thepossibility of exposure to or infection with HIV-1 and/orHIV-2. Nonreactive results in this assay for individualswith prior exposure to HIV-1 and/or HIV-2 may be due toantigen and antibody levels that are below the limit ofdetection of this assay.The [email or web address] HIV Ag/Ab Combo assay result andsupplemental assay results should be interpreted inconjunction with the patient's clinical presentation,history and other laboratory results. If the results areinconsistent with clinical evidence, additional testing issuggested to confirm the result. 08/08/2023 10:3 9 AM EDT 08/08/2023 2:46 PM EDT us Erin Wilcox MD LAB BLOOD ORDERABLES Final Re sult Performing Organization Address [facility]/ZIP Co de Phone Number [facility] [address] [place] [phone] * (ABNORMAL) Lipid Panel, Standard (08/08/2023 10:39 AM EDT) [facility] Triglycerides 77 <150 mg/dL [facility] Comment:Desirable Triglyceri de: less than 150 mg/dLBorderline High Triglyceride 150-199 mg/dLHigh Triglyceride: 200-499 mg/dLVery High Triglyceride: greater than or equal to 5OO mg/dL Cholesterol 209(H) <200 mg/dL [facility] Comment:Desirable Cholestero l: less than 200 mg/dLBorderline High Cholesterol: 200-239 mg/dLHigh Cholesterol: greater than 239 mg/dL LDL Cholesterol Calculated 158(H) <100 mg/dL [facility] Comment:Desirable LDL: less than 100 mg/dLNear Optimal/Above Optimal LDL: 110- 129 mg/dLBorderline High LDL: 130-159 mg/dLHigh LDL: 160-189 mg/dLVery High LDL: greater than or equal to 190 mg/dL HDL Cholesterol 36(L) >40 mg/dL [facility] Comment:Desirable HDL: great er than 40 mg/dL Note: This HDL assay may give artificially low results in patients with liver disease. Blood Venous blood specimen / Unknown 08/08/2023 10:39 AM EDT 08/08/2023 2:46 PM EDT us Erin Wilcox MD LAB BLOOD ORDERABLES Final Re sult [facility] [address] [place] [phone] * THINPREP TIS PAP AND HPV [...] been evaluated with computer assisted technology. CONVERTED [facility] Rubber Down : SEE COMMENT [facility] Comment: [place], CT(ASCP) CT screening location: [address] ??[phone] HPV nRNA E6/E7 Not Detected Not Detected [facility] Comment: Methodology: Medical Management Specialist-Mediated Amplification This assay detects E6/E7 viral messenger RNA (mRNA) from 14 high-risk HPV types (16,18,31,33,35,39,45,51,52,56,58,59,66,68). ? Cervical sources are required for HPV testing. If a vaginal source from a patient who has had a total hysterectomy with removal of cervix was ?? submitted, please contact the testing laboratory for alternative testing options. ?? For additional information, please refer to http://education.Skim.it/faq/OWN203s9 (This link if provided for information/ educational [...] component absent. 08/27/2022 10:4 2 AM EST us Mec[facility] LAB PATHOLOGY ORDERABLES Final Result [facility] from Last 3 Months or Most Recently Relevant to Health Maintenance Insurance [facility] C3 * Guarantor: Selam Douglass Account Type Relation to Patient Date of Phone Billing Address Personal/Family Self 44 [address] SONNY Care Teams Printer Maintainer Relationship Specialty Start Date End Date Erin Wilcox MD [address] [place] [phone] PCP - General Family Medicine 07/31/22
--- OUTSIDE RECORDS SUMMARY | 2025-02-15 12:06 | XMS_ITS | Encounter Summary ---
Author Organization [employer] Address [address] [address] [facility] [facility] [address] h Floor [place] [phone] Care Team Providers Care Party Director Name Role Phone Erin Wilcox MD Primary Care Provider [phone] Encounter Details Date Type Department Care Team (Late st Contact Info) Description 07/18/2023 Abstract [facility] [address] [place], [place] [phone] AttSveta quintero, DDS [address] [place], [place] [phone] Social History Tobacco Use Types Packs/Day Years [...] on filedocumented in this encounter Care Teams Party Director Relationship Specialty Start Date End Date Erin Wilcox MD [address] [place] [address] PCP - General Family Medicine 07/31/22 documented as of this encounter
--- OUTSIDE RECORDS SUMMARY | 2025-02-15 12:06 | XMS_ITS | Encounter Summary ---
Author Organization [employer] Address [address] [facility] [place] [address] Care Team Providers Care Cellophane Press Operator Name Role Phone Erin Wilcox MD Primary Care Provider [phone] Encounter Details Date Type Department Care Team (Late st Contact Info) Description 10/29/2023 Abstract [facility] [address] [place] [address] Jaz Zhang DMD Social History Tobacco Use [...] documented as of this encounter Care Teams Cellophane Press Operator Relationship Specialty Start Date End Date Erin Wilcox MD [address] [place] [address] PCP - General Family Medicine 07/31/22 documented as of this encounter
--- OUTSIDE RECORDS SUMMARY | 2025-02-15 12:07 | XMS_ITS | Encounter Summary ---
Author Organization [employer] [facility] Address [address] [facility] [address]t h Floor [place] [phone] Care Team Providers Care Diesel Truck Crane Operator Name Role Phone Erin Wilcox MD Primary Care Provider [phone] Encounter Details Date Type Department Care Team (Latest Contact Info) Description 07/31/2022 Abstract [facility] CONVERSIONS Dental, Provider, DDS Social [...] on filedocumented in this encounter Care Teams Diesel Truck Crane Operator Relationship Specialty Start Date End Date Erin Wilcox MD [address] [place] [address] PCP - General Family Medicine 07/31/22 documented as of this encounter
--- OUTSIDE RECORDS SUMMARY | 2025-02-15 12:07 | XMS_ITS | Encounter Summary ---
Author Organization [employer] [facility] Address [address] [facility] [address]t h Floor [place] [phone] Care Team Providers Care Cutter Brake Lining Name Role Phone Erin Wilcox MD Primary Care Provider [phone] Encounter Details Date Type Department Care Team (Latest Contact Info) Description 07/25/2021 Abstract [facility] CONVERSIONS Dental, Provider, DDS Social History [...] on filedocumented in this encounter Care Teams Cutter Brake Lining Relationship Specialty Start Date End Date Erin Wilcox MD [address] [place] [address] PCP - General Family Medicine 07/31/22 documented as of this encounter
--- OUTSIDE RECORDS SUMMARY | 2025-02-15 12:07 | XMS_ITS | Encounter Summary ---
Author Organization [employer] [facility] Address [address] [facility] [address]t [place] [address] Care Team Providers Care Supervisor Inspection Room Name Role Phone Erin Wilcox MD Primary Care Provider [phone] Encounter Details Date Type Department Care Team (Latest Contact Info) Description 08/07/2020 Abstract [facility] CONVERSIONS Dental, Provider, DDS Social History [...] on filedocumented in this encounter Care Teams Supervisor Inspection Room Relationship Specialty Start Date End Date Erin Wilcox MD [address] [place] [address] PCP - General Family Medicine 07/31/22 documented as of this encounter
--- OUTSIDE RECORDS SUMMARY | 2025-02-15 12:07 | XMS_ITS | Encounter Summary ---
Author Organization [employer] Address [address] [facility] 7t [place] [address] Care Team Providers Care Uke Operator Name Role Phone Erin Wilcox MD Primary Care Provider [phone] Encounter Details Date Type Department Care Team (Late st Contact Info) Description 09/14/2024 Orders Only [facility] [address] [place], [place] [phone] Jane Hassan MD [address] [place], [place] [phone] Psoriasis (Primary Dx) Social History Tobacco Use [...] t he electric, gas, oil or water [employer] threatened to shut off services in your [...] on file documented as of this encounter Procedures Procedure Name Priority Date/Time Associated Diagnosis Comments T-SPOT(R).TB Routine 01/11/2025 10:29 AM EDT Psoriasis GROSS AND MICROSCOPIC LEVEL 3 Routine 12/20/2024 1:39 PM EDT Psoriasis HCG, QL, URINE Routine 12/20/2024 10:45 AM EDT Psoriasis GROSS AND MICROSCOPIC LEVEL 3 Routine 09/30/2024 11:46 AM EST Psoriasis documented in this encounter Results * T-SPOT??.TB (01/11/2025 10:29 AM EDT) T Spot TB Negative Negative [facility] Comment:A negative test resu lt does [...] as aquantitative test. TS PANEL A 0 [facility] TS PANEL B 0 [facility] Negative Control Passed [facility] Positive Control Passed [facility] Comment:For additional infor peter, please refer tohttp://education.Nu3/faq/SXK171(This link is being provided for informational/educational purposes only.)THIS TEST WAS PERFORMED AT:[employer] [id number] [place] [address]XVDSLDP Ji LA MD,PHD 01/11/2025 10:2 9 AM EDT 01/11/2025 2:43 PM EDT us Jane Hassan MD LAB BLOOD ORDERABLES Final Result [facility] [address] [place] [phone] * Gross and Microscopic Level 3 (12/20/2024 1:39 PM EDT) 12/20/2024 1:39 PM EDT 12/20/2024 2:48 PM EDT Narrative [facility] - 12/22/2024 3:25 PM EDT ----- ------- Name: Selam Douglass ?Age/Sex: 39/F ? : 1985 Unit#: [id number] ?? Attend Dr: Pat Dye MD ?Re12/20/24 ?Status: DEP SDC ? Location: HO.SSS ?Disch: ? ----- ------- SPEC : [id number] ? RECD: 12/20/24 ? STATUS: ??SOUT ? REQ NUM: [id number] ? MARS: 12/20/244 ? SUBM DR: Pat Dye MD ? ENTERED: ??12/20/247818 ?SP TYPE: Surgical ? OTHR DR: Jane [...] Copies To: ?? Jane Hassan MD ?? [facility] ?? [address] [place] [address] ?? [place] [address] ?? [phone] ? CONTINUED ON NEXT PAGE ----- ------- Name: Selam Douglass ?Age/Sex: 39/F ? : 1985 Unit#: [id number] ?? Attend Dr: Pat Dye MD ?Re12/20/24 ?Status: DEP [facility] ? Location: .[facility] ?Disch: ? ----- ------- SPEC : [id number] ? RECD: 12/20/24 ? STATUS: ??SOUT ? REQ NUM: [id number] ? MARS: 12/20/24 ? SUBM DR: Pat Dye MD ? ENTERED: ??12/20/246 ?SP TYPE: Surgical ? OTHR DR: Jane Hassan MD ? ORDERED: ??Gross Micro L3 ? Copies To: ??(Continued) ?? Pat Dye MD ?? [facility] ?? [address] ?? [place] [address] ?? [phone] ----- ------- Signed (signature on file) Chelsie Todd MD 12/22/24 1525 ? ----- ------- ? END OF REPORT ? Generic External Data Provider LAB CYTOLOGY ORDE RABLES Final Result Performing Organization Address [facility] Co de Phone Number [facility] [address] [place] [phone] * HCG, Qualitative, Urine (12/20/2024 10:45 AM EDT) Urine NEGATIVE NEGATIVE [facility] Comment:This test was develo ped to detect early . Falsenegative results may occur after the 5th - 7th week ofpregnancy when using this test method. If clinicallyindicated, consider a serum hCG. 12/20/2024 10:4 5 AM EDT 12/20/2024 10:49 AM EDT Generic External Data Provider LAB URINE ORDERAB LES Final Result Performing Organization Address [facility] Co de Phone Number [facility] [address] [place] [address] [phone] * Gross and Microscopic Level 3 (09/30/2024 11:46 AM EST) 09/30/2024 11:4 6 AM EST 09/30/2024 12:03 PM EST Narrative [facility] - 10/01/2024 5:00 PM EST ----- ------- Name: Selam Douglass ?Age/Sex: 39/F ? : 1985 Unit#: [id number] ?? Attend Dr: Urban Diaz MD ?Re09/30/24 ?Status: DEP REF ? Location: HO.LNP ?Disch: ? ----- ------- SPEC : [id number] ? RECD: 09/30/24-1203 ? STATUS: ??SOUT ? REQ NUM: [id number] ? MARS: 09/30/24-1146 ? SUBM DR: Urban [...] containing white-yellow cheesy and keratotic material. ??A passenger relations representative section from each is submitted in a cassette labeled A1. CEDS Copies To: ?? Urban Diaz MD ?? [facility] General Surgeons ?? [address] ?? [place] [address] ?? [phone] ?? Erin Wilcox MD ?? [address] ?? [place] [address] ?? [phone] ? CONTINUED ON NEXT PAGE ----- ------- Name: Selam Douglass ?Age/Sex: 39/F ? : 1985 Unit#: [id number] ?? Attend Dr: Urban Diaz MD ?Re09/30/24 ?Status: DEP REF ? Location: HO.LNP ?Disch: ? ----- ------- SPEC : [id number] ? RECD: 09/30/24-1203 ? STATUS: ??SOUT ? REQ NUM: [id number] ? MARS: 09/30/24-1146 ? SUBM DR: Urban Diaz MD ? ENTERED: ??09/30/24-3 ?SP TYPE: Surgical ? OTHR DR: Erin Wilcox MD ? ORDERED: ??Gross Micro L3 ? ----- ------- Signed (signature on file) Surjit Galeano MD 10/01/24 1700 ? ----- ------- ? END OF REPORT ? us Generic External Data Provider LAB CYTOLOGY [facility] Final Result [facility] [address] [place] [address] [phone] documented in this encounter Visit Diagnoses Diagnosis Psoriasis- Primary Other psoriasis documented in this encounter Additional Health Concerns Assessment Noted Time PHQ-9 Depression Total Score: 2 08/08/20 23 10:07 AM EDT documented as of this encounter Care Teams Uke Operator Relationship Specialty Start Date End Date Erin Wilcox MD [address] [place] [address] PCP - General Family Medicine 07/31/22 documented as of this encounter
--- OUTSIDE RECORDS SUMMARY | 2025-02-15 12:07 | XMS_ITS | Encounter Summary ---
Author Organization [employer] [facility] Address [address] [facility] 7t [place] [address] Care Team Providers Care Jde Developer Name Role Phone Erin Wilcox MD Primary Care Provider [phone] Encounter Details Date Type Department Care Team (Latest Contact Info) Description 09/07/2019 Abstract [facility] CONVERSIONS Dental, Provider, DDS Social [...] on filedocumented in this encounter Care Teams Jde Developer Relationship Specialty Start Date End Date Erin Wilcox MD [address] [place] [address] PCP - General Family Medicine 07/31/22 documented as of this encounter
== END 2025-02-15 11:27 | disposition home or self-care (01) ==
LOC: HO.HOS 10:31
PROVIDERS: PCP Internal Medicine; Visit Provider Orthopaedic Surgery
DX: M20.012 Mallet finger of left finger(s) (principal)
CPT/HCPCS: 99214

== ENCOUNTER → 2025-02-15 10:31 | Outpatient (BNVA) | payer MEDICAID, SELFPAY | PROVIDERS: PCP Internal Medicine; Visit Provider Orthopaedic Surgery | DX: M20.012 Mallet finger of left finger(s) (principal); B07.9 Viral wart, unspecified | CPT/HCPCS: 99212 ==

== ENCOUNTER 2025-02-17 08:41 | Day surgery (SDC) | payer MEDICAID, SELFPAY ==
--- OUTSIDE RECORDS SUMMARY | 2025-02-16 06:45 | XMS_ITS | Encounter Summary ---
Author Organization [employer] [facility] Address [address] [facility] 7t h Floor [place] [phone] Care Team Providers Care Psychiatry Physician Name Role Phone Erin Wilcox MD Primary Care Provider [phone] Encounter Details Date Type Department Care Team (Latest Contact Info) Description 07/31/2022 Abstract [facility] CONVERSIONS Dental, Provider, DDS Social History [...] on filedocumented in this encounter Care Teams Psychiatry Physician Relationship Specialty Start Date End Date Erin Wilcox MD [address] [place] [address] PCP - General Family Medicine 07/31/22 documented as of this encounter
--- OUTSIDE RECORDS SUMMARY | 2025-02-16 06:45 | XMS_ITS | Encounter Summary ---
Author Organization [facility] Address [address] [facility] 7t h Floor [place] [phone] Care Team Providers Care Warp Changer Name Role Phone Erin Wilcox MD Primary Care Provider [phone] Encounter Details Date Type Department Care Team (Latest Contact Info) Description 07/25/2021 Abstract [facility] CONVERSIONS Dental, Provider, DDS Social History [...] on filedocumented in this encounter Care Teams Warp Changer Relationship Specialty Start Date End Date Erin Wilcox MD [address] [place] [address] PCP - General Family Medicine 07/31/22 documented as of this encounter
--- OUTSIDE RECORDS SUMMARY | 2025-02-16 06:45 | XMS_ITS | Clinical Summary ---
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 Reports periods are less heavy with depo. Has upcoming appt with nurse. Future Appointments Date Time Provider Department Center 05/11/2024 1:00 PM [facility] NURSE [facility] Lumbar back pain 08/08/2023 [...] Type Department Care Team Description 01/13/2025 Telephone [facility] [address] [place] [address] Amisha Sanchez MD Results 01/12/2025 Orders Only [facility] [address] [place], [place] [phone] Amisha Sanchez MD Normocytic anemia (Primary Dx) 01/11/2025 10:00 AM EDT Office Visit [facility] [address] [place] [address] Jane Hassan MD Psoriasis (Primary Dx) 01/11/2025 Travel 12/24/2024 Population Health Risk Score [facility] (C3) Department [address] [place] [phone] Provider, Population Health Generic 11/30/2024 Telephone [facility] [address] [place] [address] Jane Hassan MD No Show from Last [...] Reticulocytes Absolute 0.055 0.026 - 0.095 X10*6/uL [facility] Immature Retic Fraction 15.4 3.0 - 15.9 % [facility] Retic HGB Equivalent 32.0 30.0 - 35.0 pg [facility] Reticulocyte Percent 1.3 0.5 - 1.8 % [facility] Blood Venous blood specimen / Unknown 01/13/2025 10:32 AM EDT 01/13/2025 2:04 PM EDT us Amisha Sanchez MD LAB BLOOD ORDERABLES Final Res ult [facility] [address] [place] [address] [phone] * T-SPOT??.TB (01/11/2025 10:29 AM EDT) T Spot TB Negative Negative [facility] Comment:A negative test resu lt does [...] as aquantitative test. TS PANEL A 0 [facility] TS PANEL B 0 [facility] Negative Control Passed [facility] Positive Control Passed [facility] Comment:For additional infor peter, please refer tohttp://education.[employer].Appcelerator/faq/GWS245(This link is being provided for informational/educational purposes only.)THIS TEST WAS PERFORMED AT:[employer] [id number] [place] [address]OOCYEQZMICHAEL LA MD,PHD 01/11/2025 10:2 9 AM EDT 01/11/2025 2:43 PM EDT us Jane Hassan MD LAB BLOOD ORDERABLES Final Result Performing Organization Address City/[facility]/ZIP Co de Phone Number [facility] [address] [place] [address] [phone] * TSH W/Reflex to FT4 (01/11/2025 10:29 AM EDT) TSH reflex Free T4 1.26 0.32 - 4.0 uIU/mL [facility] Blood Venous blood specimen / Unknown 01/11/2025 10:29 AM EDT 01/11/2025 2:43 PM EDT us Erin Wilcox MD LAB BLOOD ORDERABLES Final Re sult [facility] [address] [place] [address] [phone] * (ABNORMAL) CBC auto differential (01/11/2025 10:29 AM EDT) White Blood Count 8.2 4.8 - 10.8 X10*3/uL [facility] Red Blood Count 4.28 4.20 - 5.50 X10*6/uL [facility] Hemoglobin 11.9(L) 12.0 - 16.0 g/dl [facility] Hematocrit 36.5(L) 37.0 - 47.0 % [facility] Mean Corpuscular Volume 85.3 80.0 - 98.0 fL [facility] Mean Corpuscular Hemoglobin 27.8 27.0 - 33.0 pg [facility] Mean Corpuscular HGB Conc 32.6 31.0 - 35.0 g/dl [facility] Red Cell Distribution Width 14.8 11.0 - 16.0 % [facility] Platelet Count 339 160 - 400 X10*3/uL [facility] Mean Platelet Volume 10.0 9.4 - 12.3 fL [facility] Neutrophils Percent Auto 55.2 45 - 73 % [facility] Imm Gran Pct Auto 0.2 0.0 - 0.4 % [facility] Lymphocytes Percent Auto 32.2 20 - 40 % [facility] Monocytes Percent Auto 8.6 2 - 11 % [facility] Eosinophils Percent Auto 2.8 0 - 4 % [facility] Basophils Percent Auto 1.0 0 - 2 % [facility] NRBC Pct Auto 0.0 0.0 - 0.2 /100WBC [facility] Neutrophils Absolute Auto 4.5 2.0 - 8.3 x10*3/uL [facility] Imm Gran Abs Auto 0.02 0.00 - 0.03 X10*3/uL [facility] Lymphocytes Absolute Auto 2.6 1.2 - 4.9 X10*3/uL [facility] Monocytes Absolute Auto 0.7 0.1 - 1.2 X10*3/uL [facility] Eosinophils Absolute Auto 0.2 0.0 - 0.4 X10*3/uL [facility] Basophils Absolute Auto 0.1 0.0 - 0.2 X10*3/uL [facility] NRBC Abs Auto 0.000 0.0 - 0.012 X10*3/uL [facility] Blood Venous blood specimen / Unknown 01/11/2025 10:29 AM EDT 01/11/2025 2:43 PM EDT us Erin Wilcox MD LAB BLOOD ORDERABLES Final Re sult [facility] [address] [place] [phone] * (ABNORMAL) Comprehensive Metabolic Panel (01/11/2025 10:29 AM EDT) Sodium 141 135 - 145 mmol/L [facility] Potassium 3.4 3.3 - 5.1 mmol/L [facility] Chloride 110(H) 96 - 108 mmol/L [facility] Carbon Dioxide 25 22 - 29 mmol/L [facility] Anion Gap 9(L) 12 - 20 [facility] Urea Nitrogen (BUN) 7(L) 9 - 16 mg/dL [facility] Creatinine, Serum 0.53 0.5 - 1.4 mg/dL [facility] Estimated Glomerular Filt Rate >60 [facility] Comment:Chronic Kidney Disea se: Estimated GFR < 60 mL/min/1.89l4Htjdjm Kidney Disease: Estimated GFR < 15 mL/min/1.73m2 Glucose 76 60 - 115 mg/dL [facility] Calcium 9.0 8.4 - 10.2 mg/dL [facility] Bilirubin, Total 0.3 0.0 - 1.0 mg/dL [facility] Aspartate Amino Transferase 28 5 - 31 U/L [facility] Alanine Aminotransferase 38(H) 0 - 31 U/L [facility] Total Protein 6.6 6.5 - 8.0 g/dL [facility] Albumin Level 4.1 3.5 - 5.0 g/dL [facility] Alkaline Phosphatase 90 39 - 117 U/L [facility] Blood Venous blood specimen / Unknown 01/11/2025 10:29 AM EDT 01/11/2025 2:43 PM EDT us Erin Wilcox MD LAB BLOOD ORDERABLES Final Re sult [facility] [address] [place] [phone] * Gross and Microscopic Level 3 (12/20/2024 1:39 PM EDT) 12/20/2024 1:39 PM EDT 12/20/2024 2:48 PM EDT Narrative [facility] - 12/22/2024 3:25 PM EDT ----- ------- Name: Selam Douglass ?Age/Sex: 39/F ? : 1985 Unit#: [id number] ?? Attend Dr: Pat Dye MD ?Re12/20/24 ?Status: DEP SDC ? Location: HO.SSS ?Disch: ? ----- ------- SPEC : [id number] ? RECD: 12/20/245 ? STATUS: ??SOUT ? REQ NUM: [id number] ? MARS: 12/20/24-8281 ? SUBM DR: Pat Dye MD ? ENTERED: ??12/20/24-8265 ?SP TYPE: Surgical ? OTHR DR: Jane [...] Copies To: ?? Jane Hassan MD ?? [facility] ?? [address] [place] [address] ?? [place] [address] ?? [phone] ? CONTINUED ON NEXT PAGE ----- ------- Name: Selam Douglass ?Age/Sex: 39/F ? : 1985 Unit#: [id number] ?? Attend Dr: Pat Dye MD ?Re12/20/24 ?Status: DEP SD ? Location: HO.SSS ?Disch: ? ----- ------- SPEC : [id number] ? RECD: 12/20/24 ? STATUS: ??SOUT ? REQ NUM: [id number] ? MARS: 12/20/24-8990 ? SUBM DR: Pat Dye MD ? ENTERED: ??12/20/24-9941 ?SP TYPE: Surgical ? OTHR DR: Jane Hassan MD ? ORDERED: ??Gross Micro L3 ? Copies To: ??(Continued) ?? Pat Dye MD ?? [facility] ?? [address] ?? [place] [address] ?? [phone] ----- ------- Signed (signature on file) Chelsie Todd MD 12/22/24 1525 ? ----- ------- ? END OF REPORT ? Generic External Data Provider LAB CYTOLOGY ORDE RABLES Final Result Performing Organization Address [facility] de Phone Number [facility] [address] [place], [place] [phone] * HCG, Qualitative, Urine (12/20/2024 10:45 AM EDT) [facility] Urine NEGATIVE NEGATIVE [facility] Comment:This test was develo ped to detect early . Falsenegative results may occur after the 5th - 7th week ofpregnancy when using this test method. If clinicallyindicated, consider a serum hCG. 12/20/2024 10:4 5 AM EDT 12/20/2024 10:49 AM EDT Generic External Data Provider LAB URINE ORDERAB LES Final Result Performing Organization Address [facility] Co de Phone Number [facility] [address] [place] [address] [phone] * Hepatitis C Ab (08/08/2023 10:39 AM EDT) [facility] Hepatitis C Antibody Nonreactive Nonreactive [facility] Comment:Antibodies to HCV no t detected; does not exclude early acuteHCV infection. Blood Venous blood specimen / Unknown 08/08/2023 10:39 AM EDT 08/08/2023 2:46 PM EDT us Erin Wilcox MD LAB BLOOD ORDERABLES Final Re sult Performing Organization Address City/[facility]/ZIP Co de Phone Number [facility] [address] [place] [address] [phone] * HIV Ab/Ag ([place] [facility]) (08/08/2023 10:39 AM EDT) [facility] HIV AB/AG Nonreactive Nonreactive [facility] Comment:HIV-1 p24 Ag and/or HIV-1/HIV-2 Ab not detected.A test result that is nonreactive does not exclude thepossibility of exposure to or infection with HIV-1 and/orHIV-2. Nonreactive results in this assay for individualswith prior exposure to HIV-1 and/or HIV-2 may be due toantigen and antibody levels that are below the limit ofdetection of this assay.The [employer]Hallspot HIV Ag/Ab Combo assay result andsupplemental assay results should be interpreted inconjunction with the patient's clinical presentation,history and other laboratory results. If the results areinconsistent with clinical evidence, additional testing issuggested to confirm the result. 08/08/2023 10:3 9 AM EDT 08/08/2023 2:46 PM EDT us Erin Wilcox MD LAB BLOOD ORDERABLES Final Re sult Performing Organization Address [facility]/ZIP Co de Phone Number [facility] [address] [place] [phone] * (ABNORMAL) Lipid Panel, Standard (08/08/2023 10:39 AM EDT) [facility] Triglycerides 77 <150 mg/dL [facility] Comment:Desirable Triglyceri de: less than 150 mg/dLBorderline High Triglyceride 150-199 mg/dLHigh Triglyceride: 200-499 mg/dLVery High Triglyceride: greater than or equal to 5OO mg/dL Cholesterol 209(H) <200 mg/dL [facility] Comment:Desirable Cholestero l: less than 200 mg/dLBorderline High Cholesterol: 200-239 mg/dLHigh Cholesterol: greater than 239 mg/dL LDL Cholesterol Calculated 158(H) <100 mg/dL [facility] Comment:Desirable LDL: less than 100 mg/dLNear Optimal/Above Optimal LDL: 110- 129 mg/dLBorderline High LDL: 130-159 mg/dLHigh LDL: 160-189 mg/dLVery High LDL: greater than or equal to 190 mg/dL HDL Cholesterol 36(L) >40 mg/dL [facility] Comment:Desirable HDL: great er than 40 mg/dL Note: This HDL assay may give artificially low results in patients with liver disease. Blood Venous blood specimen / Unknown 08/08/2023 10:39 AM EDT 08/08/2023 2:46 PM EDT us Erin Wilcox MD LAB BLOOD ORDERABLES Final Re sult [facility] [address] [place] [phone] * THINPREP TIS PAP AND HPV [...] been evaluated with computer assisted technology. [facility] Registered Nurse Maternity : SEE COMMENT [facility] Comment: [place], CT(ASCP) CT screening location: [address] ??[address] HPV nRNA E6/E7 Not Detected Not Detected [facility] Comment: Methodology: Rn Invasive-Mediated Amplification This assay detects E6/E7 viral messenger RNA (mRNA) from 14 high-risk HPV types (16,18,31,33,35,39,45,51,52,56,58,59,66,68). ? Cervical sources are required for HPV testing. If a vaginal source from a patient who has had a total hysterectomy with removal of cervix was ?? submitted, please contact the testing laboratory for alternative testing options. ?? For additional information, please refer to http://education.Sitestar/faq/ZAT090s4 (This link if provided for information/ educational [...] Most Recently Relevant to Health Maintenance Insurance [facility] C3 * Guarantor: Selam Douglass Account Type Relation to Patient Date of Phone Billing Address Personal/Family Self 44 [address] SONNY Care Teams Communications Tech Relationship Specialty Start Date End Date Erin Wilcox MD [address] [place] [phone] PCP - General Family Medicine 07/31/22
--- OUTSIDE RECORDS SUMMARY | 2025-02-16 06:45 | XMS_ITS | Encounter Summary ---
Author Organization [employer] [facility] Address [address] [facility] 7t [place] [address] Care Team Providers Care Hospice Volunteer Coordinator Name Role Phone Erin Wilcox MD Primary Care Provider [phone] Encounter Details Date Type Department Care Team (Latest Contact Info) Description 08/07/2020 Abstract [facility] CON[facility] Dental, Provider, DDS Social History [...] on filedocumented in this encounter Care Teams Hospice Volunteer Coordinator Relationship Specialty Start Date End Date Erin Wilcox MD [address] [place] [address] PCP - General Family Medicine 07/31/22 documented as of this encounter
--- OUTSIDE RECORDS SUMMARY | 2025-02-16 06:45 | XMS_ITS | Encounter Summary ---
Author Organization [employer] Address [address] 7t [place] [address] Care Team Providers Care Remote Medical Coder Name Role Phone Erin Wilcox MD Primary Care Provider [phone] Encounter Details Date Type Department Care Team (Late st Contact Info) Description 07/18/2023 Abstract [facility] [address], [place] [phone] AttSveta quintero, DDS [address], [place] [phone] Social History Tobacco Use Types Packs/Day Years [...] on filedocumented in this encounter Care Teams Remote Medical Coder Relationship Specialty Start Date End Date Erin Wilcox MD [address] [place] [address] PCP - General Family Medicine 07/31/22 documented as of this encounter
--- OUTSIDE RECORDS SUMMARY | 2025-02-16 06:45 | XMS_ITS | Encounter Summary ---
Author Organization [employer] Address [address] [facility] 7t [place] [address] Care Team Providers Care Sole Cementer Name Role Phone Erin Wilcox MD Primary Care Provider [phone] Encounter Details Date Type Department Care Team (Late st Contact Info) Description 01/12/2025 Orders Only [facility] [address] [place], [place] [phone] Amisha Sanchez MD [address] [place], [place] [phone] Normocytic anemia (Primary Dx) Social History Tobacco [...] Reticulocytes Absolute 0.055 0.026 - 0.095 X10*6/uL [facility] Immature Retic Fraction 15.4 3.0 - 15.9 % [facility] Retic HGB Equivalent 32.0 30.0 - 35.0 pg [facility] Reticulocyte Percent 1.3 0.5 - 1.8 % [facility] Blood Venous blood specimen / Unknown 01/13/2025 10:32 AM EDT 01/13/2025 2:04 PM EDT us Amisha Sanchez MD LAB BLOOD ORDERABLES Final Res ult [facility] [address] [place] [phone] [phone] documented in this encounter Visit Diagnoses Diagnosis Normocytic anemia- Primary Unspecified anemia documented in this encounter Additional Health Concerns Assessment Noted Time PHQ-9 Depression Total Score: 2 08/08/20 10:07 AM EDT documented as of this encounter Care Teams Sole Cementer Relationship Specialty Start Date End Date Erin Wilcox MD [address] [place] [address] PCP - General Family Medicine 07/31/22 documented as of this encounter
--- OUTSIDE RECORDS SUMMARY | 2025-02-16 06:45 | XMS_ITS | Encounter Summary ---
Author Organization [employer] Address [address] [place] [address] Care Team Providers Care Billboard Mechanic Name Role Phone Erin Wilcox MD Primary Care Provider [phone] Encounter Details Date Type Department Care Team (Late st Contact Info) Description 10/29/2023 Abstract [facility] [address] [place] [address] Jaz Zhang DMD Social History Tobacco Use [...] documented as of this encounter Care Teams Billboard Mechanic Relationship Specialty Start Date End Date Erin Wilcox MD [address] [place] [address] PCP - General Family Medicine 07/31/22 documented as of this encounter
--- OUTSIDE RECORDS SUMMARY | 2025-02-16 06:45 | XMS_ITS | Encounter Summary ---
Author Organization [facility] [facility] Address [address] [facility] [address] [place] [address] Care Team Providers Care Photovoltaic Installation Technician Name Role Phone Erin Wilcox MD Primary Care Provider [phone] Encounter Details Date Type Department Care Team [...] on filedocumented in this encounter Care Teams Photovoltaic Installation Technician Relationship Specialty Start Date End Date Erin Wilcox MD [address] [place] [address] PCP - General Family Medicine 07/31/22 documented as of this encounter
--- OUTSIDE RECORDS SUMMARY | 2025-02-16 06:45 | XMS_ITS | Encounter Summary ---
Author Organization [employer] Address [address] [facility] [address] [place] [address] Care Team Providers Care Site Leasing Agent Name Role Phone Erin Wilcox MD Primary Care Provider [phone] Encounter Details Date Type Department Care Team (Late st Contact Info) Description 09/14/2024 Orders Only [facility] [address] [place], [place] [phone] Jane Hassan MD [address] [place], [place] [phone] Psoriasis (Primary Dx) Social History Tobacco Use [...] t he electric, gas, oil or water [employer] threatened to shut off services in your [...] AM EDT) T Spot TB Negative Negative [facility] Comment:A negative test resu lt [...] as aquantitative test. TS PANEL A 0 [facility] TS PANEL B 0 [facility] Negative Control Passed [facility] Positive Control Passed [facility] Comment:For additional infor peter, please refer tohttp://education.Mobile Experience/faq/NDF355(This link is being provided for informational/educational purposes only.)THIS TEST WAS PERFORMED AT:[id number] [place] [address]PVTHSWO Ji LA MD,PHD 01/11/2025 10:2 9 AM EDT 01/11/2025 2:43 PM EDT us Jane Hassan MD LAB BLOOD ORDERABLES Final Result [facility] [address] [place] [phone] * Gross and Microscopic Level 3 (12/20/2024 1:39 PM EDT) 12/20/2024 1:39 PM EDT 12/20/2024 2:48 PM EDT Narrative [facility] - 12/22/2024 3:25 PM EDT ----- ------- Name: Selam Douglass ?Age/Sex: 39/F ? : 1985 Unit#: [id number] ?? Attend Dr: Pat Dye MD ?Re12/20/24 ?Status: DEP SDC ? Location: HO.SSS ?Disch: ? ----- ------- SPEC : [id number] ? RECD: 12/20/24 ? STATUS: ??SOUT ? REQ NUM: [id number] ? MARS: 12/20/240 ? SUBM DR: Pat Dye MD ? ENTERED: ??12/20/246910 ?SP TYPE: Surgical ? OTHR DR: Jane [...] Copies To: ?? Jane Hassan MD ?? [facility] ?? [address] [place] [address] ?? [place] [address] ?? [phone] ? CONTINUED ON NEXT PAGE ----- ------- Name: Selam Douglass ?Age/Sex: 39/F ? : 1985 Unit#: [id number] ?? Attend Dr: Pat Dye MD ?Re12/20/24 ?Status: DEP [facility] ? Location: [facility] ?Disch: ? ----- ------- SPEC : [id number] ? RECD: 12/20/24 ? STATUS: ??SOUT ? REQ NUM: [id number] ? MARS: 12/20/24 ? SUBM DR: aPt Dye MD ? ENTERED: ??12/20/244 ?SP TYPE: Surgical ? OTHR DR: Jane Hassan MD ? ORDERED: ??Gross Micro L3 ? Copies To: ??(Continued) ?? Pat Dye MD ?? [facility] ?? [address] ?? [place] [address] ?? [phone] ----- ------- Signed (signature on file) Chelsie Todd MD 12/22/24 1525 ? ----- ------- ? END OF REPORT ? Generic External Data Provider LAB CYTOLOGY ORDE RABLES Final Result Performing Organization Address [facility] Co de Phone Number [facility] [address] [place] [phone] * HCG, Qualitative, Urine (12/20/2024 10:45 AM EDT) Urine NEGATIVE NEGATIVE [facility] Comment:This test was develo ped to detect early . Falsenegative results may occur after the 5th - 7th week ofpregnancy when using this test method. If clinicallyindicated, consider a serum hCG. 12/20/2024 10:4 5 AM EDT 12/20/2024 10:49 AM EDT Generic External Data Provider LAB URINE ORDERAB LES Final Result Performing Organization Address [facility] Co de Phone Number [facility] [address] [place] [address] [phone] * Gross and Microscopic Level 3 (09/30/2024 11:46 AM EST) 09/30/2024 11:4 6 AM EST 09/30/2024 12:03 PM EST Narrative [facility] - 10/01/2024 5:00 PM EST ----- ------- Name: Selam Douglass ?Age/Sex: 39/F ? : 1985 Unit#: [id number] ?? Attend Dr: Urban Diaz MD ?Re09/30/24 ?Status: DEP REF ? Location: HO.LNP ?Disch: ? ----- ------- SPEC : [id number] ? RECD: 09/30/24-1203 ? STATUS: ??SOUT ? REQ NUM: [id number] ? MARS: 09/30/24-1146 ? SUBM DR: Urban [...] containing white-yellow cheesy and keratotic material. ??A scheduling representative section from each is submitted in a cassette labeled A1. CEDS Copies To: ?? Urban Diaz MD ?? [facility] ?? [address] ?? [place] [address] ?? [phone] ?? Erin Wilcox MD ?? [address] ?? [place] [address] ?? [phone] ? CONTINUED ON NEXT PAGE ----- ------- Name: Selam Douglass ?Age/Sex: 39/F ? : 1985 Unit#: [id number] ?? Attend Dr: Urban Diaz MD ?Re09/30/24 ?Status: DEP REF ? Location: HO.LNP ?Disch: ? ----- ------- SPEC : [id number] ? RECD: 09/30/24-1203 ? STATUS: ??SOUT ? REQ NUM: [id number] ? MARS: 09/30/24-1146 ? SUBM DR: Urban Diaz MD ? ENTERED: ??09/30/24-3 ?SP TYPE: Surgical ? OTHR DR: Erin Wilcox MD ? ORDERED: ??Gross Micro L3 ? ----- ------- Signed (signature on file) Surjit Galeano MD 10/01/24 1700 ? ----- ------- ? END OF REPORT ? us Generic External Data Provider LAB [facility] Final Result [facility] [address] [place] [phone] documented in this encounter Visit Diagnoses Diagnosis Psoriasis- Primary Other psoriasis documented in this encounter Additional Health Concerns Assessment Noted Time PHQ-9 Depression Total Score: 2 08/08/20 23 10:07 AM EDT documented as of this encounter Care Teams Site Leasing Agent Relationship Specialty Start Date End Date Erin Wilcox MD [address] [place] [address] PCP - General Family Medicine 07/31/22 documented as of this encounter
--- NOTE | 2025-02-16 09:54 | HO.ANESPROP2 ---
HPI - Anesthesia Eval Consult details Narrative: 39yo F for Left Small Finger DIP CRPP Mallet s/p excision finger mass 12/2024 with TIVA PMFSH Active Problems Active Problems: All Active Problems Verruca vulgaris (Acute) Mass of finger of left hand (Acute) Mallet finger of left hand (Acute) Epidermal inclusion cyst (Acute) Lipoma of left upper extremity (Acute) Family History Family history of problems with anesthesia: No Surgical History Surgical History History of rhinoplasty History of back surgery History of Problems with Anesthesia: No Social History Social History Alcohol intake: never Patient Tobacco Use Status: Current everyday Tobacco user Tobacco use type: Cigarette Cigarettes Per Day: 5 Current occupational status: employed 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
--- NOTE | ~2025-02-17 | FL_ITS ---
EXAMINATION: FL GUIDANCE ONLY HISTORY: small finger CRPP COMPARISON: Correlation is made with plain films of the left hand dated 11/17/2024. TECHNIQUE: Fluoroscopy time: 3.56 minutes. Cumulative Dose: 0.0745 mGy. DAP: 0.0045 mGym2 Images: 3. FINDINGS: Images demonstrate placement of a K wire across the DIP joint of the 5th finger. FL/FL guidance in OR IMPRESSION: Fluoroscopy during procedure. Please see procedure report for additional information. Electronically signed by: Chacorta Becerra MD 02/17/2025 02:08 PM EDT
[2025-02-17 09:02] VITALS: BP 102/68; PULSE 93; RESP 16; TEMP 36.7; O2SAT 96; BMI 20.4
[2025-02-17] MEDS: Lactated Ringers 1,000 ML 100 ML IVCONT (09:14)
--- NOTE | 2025-02-17 10:04 | P.OP_ITS ---
Operative Note Operative Note Date of Service: 02/17/25 Narrative: Operative Note Narrative: Preop diagnosis: 1. Left small finger soft tissue mallet deformity Postop diagnosis: Same Procedure: 1. Left small finger distal interphalangeal joint reduction and pinning 2. Ulnar nerve block Surgeon: Pat Dye MD Associate Veterinarian: Drake YATES Anesthesia: General Anesthesia Findings: finger fracture Implants: 0.045 K-wires times 1 Tourniquet time: None EBL: Minimal Specimen: None Drains: None Complications: None Disposition: Brought to the recovery room in stable condition Plan: Follow-up in 10-14 days for a wound check, postop radiographs and for placement in a finger splint Teach home pin site care Anticipate K-wire removal at 7 weeks postop She will need an additional 6 weeks with about 8 hours a day of extension splinting. Indications: The patient is 39 years old with a left small finger mallet deformity unresponsive to non operative measures. . The risks and benefits of operative treatment, including but not limited to risk of damage to blood vessels, nerves, tendons, infection, recurrence, delayed or nonunion of fracture, persistent pain or numbness, incomplete resolution of preoperative symptoms, or need for further surgery were discussed with the patient and they wished to proceed with surgery. Procedure: Once consent was obtained patient was brought back to the operating suite and placed in the operating table in a supine position. . Perioperative antibiotics and general anesthesia was administered by the anesthesia team. A tourniquet was applied to the proximal aspect of the left upper extremity and the limb was prepped and draped in a standard surgical fashion. Tourniquet was not inflated during the case. The FluoroScan was used during the case to assist with our fracture reduction and placement of all implants. The left small finger D IP joint was brought into full extension. I placed a single 0.045 K-wire retrograde through the tip of the small finger distal phalanx. This was advanced retrograde across the D IP joint and placed down to the base of the middle phalanx. Once satisfied with our D IP joint reduction and implant placement, the K-wire was bent and cut short and pin cap applied. Final fluoroscopic images were then obtained. The wounds were copiously irrigated with normal saline. An ulnar nerve block was then performed by infiltrating about the ulnar nerve at the wrist with some 1% lidocaine with epinephrine for postop pain control. A Sterile dressing and short volar splint extending to the forearm was applied. The patient appears to have tolerated the procedure well and with no complications. All digits were well vascularized at the conclusion of the case.
--- NOTE | 2025-02-17 10:04 | MHC.SHP ---
Pre-Procedural Eval Section A - 24 Hr Update-Section A only Date of Service: 02/17/25 The patient is an INPATIENT: No Changes since office visit: No Cold of Flu in the past 2 weeks, No New Medical Problems, No Changes in Medication and No Patient answered all questions The patient has been examined within 24 hours of the surgical procedure. The History & Physical has been completed within 30 days and I have reviewed it.: Yes Section B - Complete if H&P > 30 days Chief Complaint: Mallet finger of left finger(s) Allergies: Allergies Allergy/AdvReac Type Severity Reaction Status Date / Time No Known Allergies Allergy Mild NONE Verified 02/15/25 10:46 Plan Diagnosis/Plan: Unchanged I have reviewed the history and physical and performed a pertinent physical examination on my patient. No changes have occurred unless specified. Time Spent With Patient Time: Total time managing care of this patient today ____ minutes.
[2025-02-17 10:27] LABS: UPreg QC Valid YES; Urine Pregnancy NEGATIVE (NEGATIVE)
--- NOTE | 2025-02-17 12:34 | HO.ANESPROP2 ---
[facility] Active Problems Active Problems: All Active Problems Verruca vulgaris (Acute) Mass of finger of left hand (Acute) Mallet finger of left hand (Acute) Epidermal inclusion cyst (Acute) Lipoma of left upper extremity (Acute) Past Medical History Functional capacity: independent ambulation Family History Family history of problems with anesthesia: No Surgical History Surgical History History of rhinoplasty History of back surgery History of Problems with Anesthesia: No Social History Social History Alcohol intake: never Patient Tobacco Use Status: Current everyday Tobacco user Tobacco use type: Cigarette Cigarettes Per Day: 3 Second Hand Smoke Exposure: No Use of substances other than those prescribed or required for medical reasons: No Have you been hit, kicked, punched, or otherwise hurt by someone within the past year? 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 [employer] Allergies Allergy/AdvReac Type Severity Reaction Status Date / Time No Known Allergies Allergy Mild NONE Verified 02/15/25 10:46 Active Medications: Current Medications Lactated Ringer's (Lr) 1,000 mls @ 100 mls/hr IVCONT .Q10H LINDA Last Admin: 02/17/25 09:14 Dose: 100 mls/hr Home Medications ?Medication ?Instructions ?Recorded ?Confirmed ?Last Taken ?Type multivitamin 1 tab PO DAILY 11/17/24 02/17/25 Unknown History rosuvastatin 10 mg tablet 10 mg PO QAM 11/17/24 02/17/25 Unknown History Exam Height,Weight and Vital Signs: Height 5 ft 6 in Weight 57.3 kg Last Vital Signs Temp 98.0 F 02/17/25 09:02 Pulse 93 02/17/25 09:02 Resp 16 02/17/25 09:02 BP 102/68 02/17/25 09:02 Pulse Ox 96 02/17/25 09:02 O2 Del Method Room Air 02/17/25 09:02 Pertinent Lab Results Pertinent Lab Results: Laboratory Tests 02/17/25 09:54 Urine Test NEGATIVE Airway Mallampati Class: I TM Dist: >3cm Neck ROM: Full Loose/Missing/Broken Teeth: No Heart: rrr Lungs: cta Assessment and Plan Assessment Anesthesia Assessment: Anesthesia Plan Discussed and Smoking Cess. Discussed Final Anesthetic Review Family History of Problems with Anesthesia: No History of Problems with Anesthesia: No NPO: Yes ASA Class: II Final Preanesthetic Review: No Changes in Pt Med Stat, Meds/Allgs Chart Reviewed, Consent Obtained/Reviewed and Anes Risks/Benef Reviewed Patient Risk: Low Procedure Risk: Low Anesthetic Plan Anesthetic Plan: GA and Agree w/ Assess. and Plan Disposition: Standard PACU
[2025-02-17] MEDS: ceFAZolin Sodium/Dextrose,Iso 2 GM/50 ML PIGGYBACK IV (13:00)
[2025-02-17 13:40] VITALS: BP 100/58; PULSE 80; RESP 17; TEMP 37; O2SAT 98
[2025-02-17 13:45] VITALS: BP 111/60; PULSE 94; RESP 16; O2SAT 96
[2025-02-17 13:50] VITALS: BP 102/50; PULSE 89; RESP 16; O2SAT 96
[2025-02-17 13:55] VITALS: BP 105/55; PULSE 86; RESP 16; O2SAT 96
[2025-02-17 14:10] VITALS: BP 111/75; PULSE 83; RESP 17; TEMP 37.2; O2SAT 97
== END 2025-02-17 14:42 | disposition home or self-care (01) ==
PROVIDERS: Nurse Practitioner; PCP Internal Medicine; Visit Provider Orthopaedic Surgery
PROC: (CPT 26776; principal; 2025-02-17 11:20)
DX: M20.012 Mallet finger of left finger(s) (principal); Z98.890 Other specified postprocedural states; F17.210 Nicotine dependence, cigarettes, uncomplicated
CPT/HCPCS: 26776; 81025; J0690; J1100; J2003; J2004; J2405; J2704; J3010

== ENCOUNTER → 2025-02-17 08:41 | Outpatient (BNV) | payer MEDICAID, SELFPAY | PROVIDERS: PCP Internal Medicine; Visit Provider Orthopaedic Surgery | DX: M20.012 Mallet finger of left finger(s) (principal) | CPT/HCPCS: 26756 ==

== ENCOUNTER 2025-03-01 10:55 | Outpatient (AMB) | payer MEDICAID, SELFPAY ==
--- NOTE | 2025-03-01 11:04 | MHC.OFFVIS ---
Intake Visit Reasons: PO LT SF DIP CRPP mallet 02/17/25 AR Intake Note: Selam is a 39 year old - hand dominant female who presents post-operatively status post left small finger DIP CRPP mallet, DOS: 02/17/[address] Dye. has pins Allergies No Known Allergies Allergy (Mild, Verified 03/01/25 11:04) NONE HPI HPI PO LT SF DIP CRPP mallet 02/17/25 AR: Details: Selam is a 39 year old - hand dominant female who presents post-operatively status post left small finger DIP CRPP mallet, DOS: 02/17/[address] Dye. Patient reports that she has not experienced any pain in the left hand at all throughout this entire experience, and then has continued to today. Patient reports that she has kept the splint clean, dry, intact. No other acute complaints or concerns at this time. 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 Review of Systems Const All systems reviewed & are unremarkable except as noted in HPI and below Physical Exam Extrem Other: Evaluation of Left Upper Extremity: The patient is alert, oriented, and in no acute distress Neuro: Median, Ulnar, Radial nerves motor and sensory intact and sensation is normal to the tips of all digits Vascular: Cap refill brisk ROM: She can bring all her fingers closed to a fist and back into extension Pin in place holding the DIP joint of the left small finger in extension Office Procedures Casting/Splints Details: Finger cast 13561-Hlrn/Wrist Cast Application Procedure code (CPT) selection complete Assessment & Plan Assessment & Plan (1) Mallet finger of left hand: Comment: Code(s): M20.012 - Mallet finger of left finger(s) Category: Medical Plan 1. Status post pinning of mallet finger of the left small finger DOS 02/17/2025 Patient appears to be recovering well postoperatively Patient is educated about the typical recovery course At this time, patient is placed into a finger cast for protection of the pin, as the patient states that she is entirely uncomfortable with seeing the pain and performing any pin site care herself Patient is educated on proper cast care and pin site precautions Patient is amenable to this plan Follow-up in 3 weeks with repeat x-rays and anticipate cast removal and pin pulling at that time, sooner with any acute concerns Coding Level of Care Code Global (38072) Diagnoses Mallet finger of left hand M20.012 CPT Codes Casting - CPT: 11136-Wxzu/Wrist Cast Application ([id number])
--- OUTSIDE RECORDS SUMMARY | 2025-03-01 12:11 | XMS_ITS | Clinical Summary ---
Author Organization [employer] Address [address] [facility] 7t [place] [address] Care Team Providers Care Paper Inspector Name Role Phone Erin Wilcox MD Primary Care Provider [phone] Allergies No known active allergies Medications betamethasone [...] fibrous uterus on US, has referral for HITCHER in place, pending appt. Reports periods are less heavy with depo. Has upcoming appt with nurse. Future Appointments Date Time Provider Department Center 05/11/2024 1:00 PM [facility] JAYA NURSE [facility] Lumbar back pain 08/08/2023 Assessment [...] Encounters Date Type Department Care Team Description 02/17/2025 Orders Only GENERIC EXTERNAL DATA DEPARTMENT Provider, Generic External Data 01/13/2025 Telephone [facility] [address] [place] [address] Amisha Sanchez MD Results 01/12/2025 Orders Only [facility] MEDIC[facility] [address] [facility] [address] [place] [address] Amisha Sanchez MD Normocytic anemia (Primary Dx) 01/11/2025 10:00 AM EDT Office Visit [facility] PEDS [address] [place] [address] Jane Hassan MD Psoriasis (Primary Dx) 01/11/2025 Travel 12/24/2024 Population Health Risk Score [facility] () Department [address] [phone] Provider, Population Health Generic from Last 3 Months Immunizations Immunization Administration Dates Next Due Influenza injectable quadrivalent [...] t he electric, gas, oil or water [email or web address] threatened to shut off services in your [...] Health Maintenance Due Date Last Done Comments Disability Screening 1984 Alcohol/Substance Use Screening 1996 Family Planning (PISQ) 1999 Hepatitis B Vaccines (1 of 3 - 19+ 3-dose series) 2003 Pneumococcal Vaccine: Pediatrics (0 to 5 Years) and At-Risk Patients (6 to 49) Years) (1 of 2 - PCV) 2003 Dental Oral Exam 01/30/2023 07/31/2022 Dental Prophylaxis 02/06/2023 08/07/2022 Dental X-Ray: Bitewings 08/01/2023 07/31/2022 Mammogram 2024 COVID-19 Vaccine ( - 2023-2 5 season) 2024 07/10/2021, 06/12/2021 [...] patient's age to complete this topic Meningococcal B Vaccine Aged Out No l onger eligible based on patient's age to complete [...] Procedure Name Priority Date/Time Associated Diagnosis Comments FL GUIDANCE IN OR Routine 02/17/2025 11: 47 AM EDT HCG, QL, URINE Routine 02/17/2025 9:54 AM EDT RETICULOCYTE COUNT Routine 01/13/2025 10 :32 AM [...] Recently Relevant to Health Maintenance Results * FL Guidance in OR (02/17/2025 11:47 AM EDT) Anatomical Region Laterality Modality X-Ray Angiograph y 02/17/2025 11:4 7 AM EDT Narrative 02/17/2025 2:11 PM EDT ? [facility] ?[address] ?[place] [address] ? Fluoroscopy Report ? Signed ? Patient: Douglass,Selam ?MR#: [id number] ? : 1985 ?Acct:[id number] ? Age/Sex: 39 / F ?ADM Date: 05/08/25 ? Loc: HO.SSS ? Attending Dr: Pat Dye MD ? Ordering Physician: Pat Dye MD ?? Date of Service: 02/17/25 ?? Procedure(s): FL guidance in OR ?? Accession Number(s): [id number] ? cc: Jane Hassan MD; Pat Dye MD ? EXAMINATION: ??FL GUIDANCE ONLY ? HISTORY: small finger CRPP ? COMPARISON: ?? Correlation is made with plain films of the left hand dated 11/17/2024. ? TECHNIQUE: ?? Fluoroscopy time: 3.56 minutes. ?? Cumulative Dose: 0.0745 mGy. ?? DAP: 0.0045 mGym2 ?? Images: 3. ? FINDINGS: ?? Images demonstrate placement of a K wire across the DIP joint of the ?? 5th finger. ? FL/FL guidance in OR ?? IMPRESSION: ?? Fluoroscopy during procedure. Please see procedure report for ?? additional information. ? Electronically signed by: ??Chacorta Becerra MD ??02/17/2025 02:08 PM EDT ? Dictated By: ?Chacorta Becerra MD ? Signed By: ?<Electronically signed by Chacorta Becerra MD in OV> ?02/17/25 1408 ? DD/ 1147 ? TD/TT: 02/17/25 1351 ? Bar Manager: ? Procedure Note Marcial, Image - 02/17/2025 [place] [address] Fluoroscopy Report Signed Patient: Silvina Douglass#: [id number] : 1985Acct:[id number] Age/Sex: 39 / FADM Date: 02/17/25 [facility]: [facility] Attending Dr: Pat Dye MD Ordering Physician: Pat Dye MD Date of Service: 02/17/25 Procedure(s): FL guidance in OR Accession Number(s): [id number] cc: Jane Hassan MD; Pat Dye MD EXAMINATION: FL GUIDANCE ONLY HISTORY: small finger CRPP COMPARISON: Correlation is made with plain films of the left hand dated 11/17/2024. TECHNIQUE: Fluoroscopy time: 3.56 minutes. Cumulative Dose: 0.0745 mGy. DAP: 0.0045 mGym2 Images: 3. FINDINGS: Images demonstrate placement of a K wire across the DIP joint of the 5th finger. FL/FL guidance in OR IMPRESSION: Fluoroscopy during procedure. Please see procedure report for additional information. Electronically signed by: Chacorta Becerra MD 02/17/2025 02:08 PM EDT Dictated By: Chacorta Becerra MD Signed By: <Electronically signed by Chacorta Becerra MD in OV> 02/17/25 1408 DD/ 1147 TD/TT: 02/17/25 1351 Bar Manager: [facility] External Provider IMG IR PROCEDURES Edited Result - Final * HCG, Qualitative, Urine (02/17/2025 9:54 AM EDT) Only the most recent of2 resultswithin the time period is included. Pathologist [facility] Urine NEGATIVE NEGATIVE [facility] Comment:This test was develo ped to detect early . Falsenegative results may occur after the 5th - 7th week ofpregnancy when using this test method. If clinicallyindicated, consider a serum hCG. 02/17/2025 9:54 AM EDT 02/17/2025 10:10 AM EDT Generic External Data Provider LAB URINE ORDERAB LES Final Result [facility] [address] [place] [address] [phone] * Reticulocyte Count (01/13/2025 10:32 AM EDT) Reticulocytes Absolute 0.055 0.026 - 0.095 X10*6/uL [facility] Immature Retic Fraction 15.4 3.0 - 15.9 % [facility] Retic HGB Equivalent 32.0 30.0 - 35.0 pg [facility] Reticulocyte Percent 1.3 0.5 - 1.8 % [facility] Blood Venous blood specimen / Unknown 01/13/2025 10:32 AM EDT 01/13/2025 2:04 PM EDT us Amisha Sanchez MD LAB BLOOD ORDERABLES Final Res ult [facility] [address] [place] [phone] * T-SPOT??.TB (01/11/2025 10:29 AM EDT) [facility] T Spot TB Negative Negative [facility] Comment:A negative test resu lt does [...] aquantitative test. TS PANEL A 0 [facility] TS PANEL B 0 [facility] Negative Control Passed [facility] Positive Control Passed [facility] Comment:For additional infor peter, please refer tohttp://education.[employer]/faq/KBE793(This link is being provided for informational/educational purposes only.)THIS TEST WAS PERFORMED AT:[employer] [id number] [place] [address]YSILNEZMICHAEL LA MD,PHD 01/11/2025 10:2 9 AM EDT 01/11/2025 2:43 PM EDT us Jane Hassan MD LAB BLOOD ORDERABLES Final Result Performing Organization Address City/[facility]/ZIP Co de Phone Number [facility] [address] [place], [place] [phone] * TSH W/Reflex to FT4 (01/11/2025 10:29 AM EDT) Pathologist [facility] TSH reflex Free T4 1.26 0.32 - 4.0 uIU/mL [facility] Blood Venous blood specimen / Unknown 01/11/2025 10:29 AM EDT 01/11/2025 2:43 PM EDT us Erin Wilcox MD LAB BLOOD ORDERABLES Final Re sult Performing Organization Address [facility]/ZIP Co de Phone Number [facility] [address] [place] [address] [phone] * (ABNORMAL) CBC auto differential (01/11/2025 10:29 AM EDT) [facility] White Blood Count 8.2 4.8 - 10.8 X10*3/uL [facility] Red Blood Count 4.28 4.20 - 5.50 X10*6/uL [facility] Hemoglobin 11.9(L) 12.0 - 16.0 g/dl [facility] Hematocrit 36.5(L) 37.0 - 47.0 % [facility] Mean Corpuscular Volume 85.3 80.0 - 98.0 fL [facility] Mean Corpuscular Hemoglobin 27.8 27.0 - 33.0 pg [facility] Mean Corpuscular HGB Conc 32.6 31.0 - 35.0 g/dl [facility] Red Cell Distribution Width 14.8 11.0 - 16.0 % [facility] Platelet Count 339 160 - 400 X10*3/uL [facility] Mean Platelet Volume 10.0 9.4 - 12.3 fL [facility] Neutrophils Percent Auto 55.2 45 - 73 % [facility] Imm Gran Pct Auto 0.2 0.0 - 0.4 % [facility] Lymphocytes Percent Auto 32.2 20 - 40 % [facility] Monocytes Percent Auto 8.6 2 - 11 % [facility] Eosinophils Percent Auto 2.8 0 - 4 % [facility] Basophils Percent Auto 1.0 0 - 2 % [facility] NRBC Pct Auto 0.0 0.0 - 0.2 /100WBC [facility] Neutrophils Absolute Auto 4.5 2.0 - 8.3 x10*3/uL [facility] Imm Gran Abs Auto 0.02 0.00 - 0.03 X10*3/uL [facility] Lymphocytes Absolute Auto 2.6 1.2 - 4.9 X10*3/uL [facility] Monocytes Absolute Auto 0.7 0.1 - 1.2 X10*3/uL [facility] Eosinophils Absolute Auto 0.2 0.0 - 0.4 X10*3/uL [facility] Basophils Absolute Auto 0.1 0.0 - 0.2 X10*3/uL [facility] NRBC Abs Auto 0.000 0.0 - 0.012 X10*3/uL [facility] Blood Venous blood specimen / Unknown 01/11/2025 10:29 AM EDT 01/11/2025 2:43 PM EDT us Erin Wilcox MD LAB BLOOD ORDERABLES Final Re sult [facility] [address] [place] [phone] * (ABNORMAL) Comprehensive Metabolic Panel (01/11/2025 10:29 AM EDT) Sodium 141 135 - 145 mmol/L [facility] Potassium 3.4 3.3 - 5.1 mmol/L [facility] Chloride 110(H) 96 - 108 mmol/L [facility] Carbon Dioxide 25 22 - 29 mmol/L [facility] Anion Gap 9(L) 12 - 20 [facility] Urea Nitrogen (BUN) 7(L) 9 - 16 mg/dL [facility] Creatinine, Serum 0.53 0.5 - 1.4 mg/dL [facility] Estimated Glomerular Filt Rate >60 [facility] Comment:Chronic Kidney Disea se: Estimated GFR < 60 mL/min/1.27c2Nuwhtg Kidney Disease: Estimated GFR < 15 mL/min/1.73m2 Glucose 76 60 - 115 mg/dL [facility] Calcium 9.0 8.4 - 10.2 mg/dL [facility] Bilirubin, Total 0.3 0.0 - 1.0 mg/dL [facility] Aspartate Amino Transferase 28 5 - 31 U/L [facility] Alanine Aminotransferase 38(H) 0 - 31 U/L [facility] Total Protein 6.6 6.5 - 8.0 g/dL [facility] Albumin Level 4.1 3.5 - 5.0 g/dL [facility] Alkaline Phosphatase 90 39 - 117 U/L [facility] Blood Venous blood specimen / Unknown 01/11/2025 10:29 AM EDT 01/11/2025 2:43 PM EDT us Erin Wilcox MD LAB BLOOD ORDERABLES Final Re sult [facility] [address] [place] [phone] * Gross and Microscopic Level 3 (12/20/2024 1:39 PM EDT) 12/20/2024 1:39 PM EDT 12/20/2024 2:48 PM EDT Narrative [facility] - 12/22/2024 3:25 PM EDT ----- ------- Name: Selam Douglass ?Age/Sex: 39/F ? : 1985 Unit#: [id number] ?? Attend Dr: Pat Dye MD ?Re12/20/24 ?Status: DEP SDC ? Location: HO.SSS ?Disch: ? ----- ------- SPEC : [id number] ? RECD: 12/20/24-4722 ? STATUS: ??SOUT ? REQ NUM: [id number] ? MARS: 12/20/24-9351 ? SUBM DR: Pat Dye MD ? ENTERED: ??12/20/244480 ?SP TYPE: Surgical ? OTHR DR: Jane [...] Copies To: ?? Jane Hassan MD ?? [facility] ?? [address] [place] [address] ?? [place] [address] ?? [phone] ? CONTINUED ON NEXT PAGE ----- ------- Name: Selam Douglass ?Age/Sex: 39/F ? : 1985 Unit#: [id number] ?? Attend Dr: Pat Dye MD ?Re12/20/24 ?Status: DEP SDC ? Location: HO.SSS ?Disch: ? ----- ------- SPEC : [id number] ? RECD: 12/20/247 ? STATUS: ??SOUT ? REQ NUM: [id number] ? MARS: 12/20/24-1891 ? SUBM DR: Pat Dye MD ? ENTERED: ??12/20/249093 ?SP TYPE: Surgical ? OTHR DR: Jane Hassan MD ? ORDERED: ??Gross Micro L3 ? Copies To: ??(Continued) ?? Pat Dye MD ?? [facility] ?? [address] ?? [place] [address] ?? [phone] ----- ------- Signed (signature on file) Chelsie Todd MD 12/22/24 1525 ? ----- ------- ? END OF REPORT ? us Generic External Data Provider LAB CYTOLOGY ORDE RABLES Final Result Performing Organization Address [facility] Co de Phone Number [facility] [address], [place] [phone] * Hepatitis C Ab (08/08/2023 10:39 AM EDT) Hepatitis C Antibody Nonreactive Nonreactive [facility] Comment:Antibodies to HCV no t detected; does not exclude early acuteHCV infection. Blood Venous blood specimen / Unknown 08/08/2023 10:39 AM EDT 08/08/2023 2:46 PM EDT us Erin Wilcox MD LAB BLOOD ORDERABLES Final Re sult Performing Organization Address [facility]/ZIP Co de Phone Number [facility] [address] [place], [place] [phone] * HIV Ab/Ag (SONNY DP) (08/08/2023 10:39 AM EDT) HIV AB/AG Nonreactive Nonreactive [facility] Comment:HIV-1 p24 Ag and/or HIV-1/HIV-2 Ab not detected.A test result that is nonreactive does not exclude thepossibility of exposure to or infection with HIV-1 and/orHIV-2. Nonreactive results in this assay for individualswith prior exposure to HIV-1 and/or HIV-2 may be due toantigen and antibody levels that are below the limit ofdetection of this assay.The [employer] HIV Ag/Ab Combo assay result andsupplemental assay results should be interpreted inconjunction with the patient's clinical presentation,history and other laboratory results. If the results areinconsistent with clinical evidence, additional testing issuggested to confirm the result. 08/08/2023 10:3 9 AM EDT 08/08/2023 2:46 PM EDT us Erin Wilcox MD LAB BLOOD ORDERABLES Final Re sult [facility] [address] [place] [phone] * (ABNORMAL) Lipid Panel, Standard (08/08/2023 10:39 AM EDT) Triglycerides 77 <150 mg/dL [facility] Comment:Desirable Triglyceri de: less than [...] 190 mg/dL HDL Cholesterol 36(L) >40 mg/dL [facility] Comment:Desirable HDL: great er than 40 mg/dL Note: This HDL assay may give artificially low results in patients with liver disease. Blood Venous blood specimen / Unknown 08/08/2023 10:39 AM EDT 08/08/2023 2:46 PM EDT us Erin Wilcox MD LAB BLOOD ORDERABLES Final Re sult [facility] [address] [place] [address] [phone] * THINPREP TIS PAP AND HPV mRNA E6/E7 WITH REFLEX TO HPV 16,18/45 (08/27/2022 10:42 AM EST) Clinical Information: None given [facility] COMMENT SEE COMMENT CONVERTE D [facility] Comment: EXPLANATORY NOTE: ? The Pap [...] been evaluated with computer assisted technology. CONVERTED [facility] [place] : SEE COMMENT [facility] Comment: [place], CT(ASCP) CT screening location: [address] ??[address] HPV nRNA E6/E7 Not Detected Not Detected CONVERTED [employer] Comment: Methodology: Insole Lip Turner-Mediated Amplification This assay detects E6/E7 viral messenger RNA (mRNA) from 14 high-risk HPV types (16,18,31,33,35,39,45,51,52,56,58,59,66,68). ? Cervical sources are required for HPV testing. If a vaginal source from a patient who has had a total hysterectomy with removal of cervix was ?? submitted, please contact the testing laboratory for alternative testing options. ?? For additional information, please refer to http://education.[employer]/faq/LEY162h2 (This link if provided for information/ educational [...] Most Recently Relevant to Health Maintenance Insurance [facility] C3 DENTAL-[facility] MEDICAID STAND ADULT Care Teams Paper Inspector Relationship Specialty Start Date End Date Erin Wilcox MD [address] [place] [phone] PCP - General Family Medicine 07/31/22
--- OUTSIDE RECORDS SUMMARY | 2025-03-01 12:11 | XMS_ITS | Encounter Summary ---
Author Organization [employer] Address [address] [facility] 7t [place] [address] Care Team Providers Care Hydraulic Rockbreaker Operator Name Role Phone Erin Wilcox MD Primary Care Provider [phone] Encounter Details Date Type Department Care Team (Late st Contact Info) Description 09/14/2024 Orders Only [facility] [address] [place], [place] [phone] Jane Hassan MD [address] [place], [place] [phone] Psoriasis (Primary Dx) Social History Tobacco Use [...] t he electric, gas, oil or water [employer] threatened to shut off services in your [...] AM EDT) T Spot TB Negative Negative [facility] Comment:A negative test resu [...] as aquantitative test. TS PANEL A 0 [facility] TS PANEL B 0 [facility] Negative Control Passed [facility] Positive Control Passed [facility] Comment:For additional infor peter, please refer tohttp://education.[employer]/faq/UKU275(This link is being provided for informational/educational purposes only.)THIS TEST WAS PERFORMED AT:[employer]/BEASLEY [id number] [place] [address]VSBNFPO Ji LA MD,PHD 01/11/2025 10:2 9 AM EDT 01/11/2025 2:43 PM EDT us Jane Hassan MD LAB BLOOD ORDERABLES Final Result [facility] [address] [place] [phone] * Gross and Microscopic Level 3 (12/20/2024 1:39 PM EDT) 12/20/2024 1:39 PM EDT 12/20/2024 2:48 PM EDT Narrative [facility] - 12/22/2024 3:25 PM EDT ----- ------- Name: Selam Douglass ?Age/Sex: 39/F ? : 1985 Unit#: [id number] ?? Attend Dr: Pat Dye MD ?Re12/20/24 ?Status: DEP SDC ? Location: HO.SSS ?Disch: ? ----- ------- SPEC : [id number] ? RECD: 12/20/24 ? STATUS: ??SOUT ? REQ NUM: [id number] ? MARS: 12/20/242 ? SUBM DR: Pat Dye MD ? ENTERED: ??12/20/246607 ?SP TYPE: Surgical ? OTHR DR: Jane [...] To: ?? Jane Hassan MD ?? [facility] ?? [address] [place] [address] ?? [place] [address] ?? [phone] ? CONTINUED ON NEXT PAGE ----- ------- Name: Selam Douglass ?Age/Sex: 39/F ? : 1985 Unit#: [id number] ?? Attend Dr: Pat Dye MD ?Re12/20/24 ?Status: DEP [facility] ? Location: [facility] ?Disch: ? ----- ------- SPEC : [id number] ? RECD: 12/20/24 ? STATUS: ??SOUT ? REQ NUM: [id number] ? MARS: 12/20/24 ? SUBM DR: Pat Dye MD ? ENTERED: ??12/20/241 ?SP TYPE: Surgical ? OTHR DR: Jane Hassan MD ? ORDERED: ??Gross Micro L3 ? Copies To: ??(Continued) ?? Pat Dye MD ?? [facility] ?? [address] ?? [place] [address] ?? [phone] ----- ------- Signed (signature on file) Chelsie Todd MD 12/22/24 1525 ? ----- ------- ? END OF REPORT ? Generic External Data Provider LAB CYTOLOGY ORDE RABLES Final Result Performing Organization Address [facility] Co de Phone Number [facility] [address] [place] [phone] * HCG, Qualitative, Urine (12/20/2024 10:45 AM EDT) Urine NEGATIVE NEGATIVE [facility] Comment:This test was develo ped to detect early . Falsenegative results may occur after the 5th - 7th week ofpregnancy when using this test method. If clinicallyindicated, consider a serum hCG. 12/20/2024 10:4 5 AM EDT 12/20/2024 10:49 AM EDT Generic External Data Provider LAB URINE ORDERAB LES Final Result Performing Organization Address [facility] Co de Phone Number [facility] [address] [place] [address] [phone] * Gross and Microscopic Level 3 (09/30/2024 11:46 AM EST) 09/30/2024 11:4 6 AM EST 09/30/2024 12:03 PM EST Narrative [facility] - 10/01/2024 5:00 PM EST ----- ------- Name: Selam Douglass ?Age/Sex: 39/F ? : 1985 Unit#: [id number] ?? Attend Dr: Urban Diaz MD ?Re09/30/24 ?Status: DEP REF ? Location: HO.LNP ?Disch: ? ----- ------- SPEC : [id number] ? RECD: 09/30/24-1203 ? STATUS: ??SOUT ? REQ NUM: [id number] ? MARS: 09/30/24-1146 ? SUBM DR: Urban [...] containing white-yellow cheesy and keratotic material. ??A termite control representative section from each is submitted in a cassette labeled A1. CEDS Copies To: ?? Urban Diaz MD ?? [facility] ?? [address] ?? [place] [address] ?? [phone] ?? Erin Wilcox MD ?? [address] ?? [place] [address] ?? [phone] ? CONTINUED ON NEXT PAGE ----- ------- Name: Selam Douglass ?Age/Sex: 39/F ? : 1985 Unit#: [id number] ?? Attend Dr: Urban Diaz MD ?Re09/30/24 ?Status: DEP REF ? Location: HO.LNP ?Disch: ? ----- ------- SPEC : [id number] ? RECD: 09/30/24-1203 ? STATUS: ??SOUT ? REQ NUM: [id number] ? MARS: 09/30/24-1146 ? SUBM DR: Urban Diaz MD ? ENTERED: ??09/30/24-3 ?SP TYPE: Surgical ? OTHR DR: Erin Wilcox MD ? ORDERED: ??Gross Micro L3 ? ----- ------- Signed (signature on file) Surjit Galeano MD 10/01/24 1700 ? ----- ------- ? END OF REPORT ? us Generic External Data Provider LAB CYTOLOGY [facility] Final Result [facility] [address] [place] [address] [phone] documented in this encounter Visit Diagnoses Diagnosis Psoriasis- Primary Other psoriasis documented in this encounter Additional Health Concerns Assessment Noted Time PHQ-9 Depression Total Score: 2 08/08/20 23 10:07 AM EDT documented as of this encounter Care Teams Hydraulic Rockbreaker Operator Relationship Specialty Start Date End Date Erin Wilcox MD [address] [place] [address] PCP - General Family Medicine 07/31/22 documented as of this encounter
--- OUTSIDE RECORDS SUMMARY | 2025-03-01 12:11 | XMS_ITS | Encounter Summary ---
Author Organization [employer] Address [address] 7[address] [place] [address] Care Team Providers Care Drone Pilot Name Role Phone Erin Wilcox MD Primary Care Provider [phone] Encounter Details Date Type Department Care Team (Late st Contact Info) Description 07/18/2023 Abstract [facility] [address] [place], [place] [phone] AttSveta quintero, DDS [address] [place], [place] [phone] Social History Tobacco Use Types Packs/Day Years [...] on filedocumented in this encounter Care Teams Drone Pilot Relationship Specialty Start Date End Date Erin Wilcox MD [address] [place] [address] PCP - General Family Medicine 07/31/22 documented as of this encounter
--- OUTSIDE RECORDS SUMMARY | 2025-03-01 12:11 | XMS_ITS | Encounter Summary ---
Author Organization [employer] [facility] Address [address] [facility] [address]t h Floor [place] [phone] Care Team Providers Care Special Effects Makeup Artist Name Role Phone Erin Wilcox MD Primary Care Provider [phone] Encounter Details Date Type Department Care Team (Latest Contact Info) Description 07/31/2022 Abstract [facility] CONVERSIONS Dental, Provider, DDS Social History Tobacco [...] on filedocumented in this encounter Care Teams Special Effects Makeup Artist Relationship Specialty Start Date End Date Erin Wilcox MD [address] [place] [address] PCP - General Family Medicine 07/31/22 documented as of this encounter
--- OUTSIDE RECORDS SUMMARY | 2025-03-01 12:11 | XMS_ITS | Encounter Summary ---
Author Organization [employer] Address [address] [place] [address] Care Team Providers Care Assistant Professor Of Biology Name Role Phone Erin Wilcox MD Primary Care Provider [phone] Encounter Details Date Type Department Care Team (Late st Contact Info) Description 10/29/2023 Abstract [facility] [address] [place] [address] Jaz Zhang DMD Social History Tobacco Use [...] documented as of this encounter Care Teams Assistant Professor Of Biology Relationship Specialty Start Date End Date Erin Wilcox MD [address] [place] [address] PCP - General Family Medicine 07/31/22 documented as of this encounter
--- OUTSIDE RECORDS SUMMARY | 2025-03-01 12:11 | XMS_ITS | Encounter Summary ---
Author Organization [employer] [facility] Address [address] [place] [id number] Care Team Providers Care Dairy Equipment Repairer Name Role Phone Erin Wilcox MD Primary Care Provider [phone] Encounter Details Date Type Department Care Team (Latest Contact Info) Description 07/25/2021 Abstract [facility] CONVERSIONS Dental, Provider, DDS Social [...] on filedocumented in this encounter Care Teams Dairy Equipment Repairer Relationship Specialty Start Date End Date Erin Wilcox MD [address] [place] [address] PCP - General Family Medicine 07/31/22 documented as of this encounter
--- OUTSIDE RECORDS SUMMARY | 2025-03-01 12:11 | XMS_ITS | Encounter Summary ---
Author Organization [employer] Address [address] [facility] [address] [place] [address] Care Team Providers Care Computer Security Manager Name Role Phone Erin Wilcox MD Primary Care Provider [phone] Encounter Details Date Type Department Care Team (Late st Contact Info) Description 01/12/2025 Orders Only [facility] [address] [place], [place] [id number] Amisha Sanchez MD [address] [place], [place] [phone] Normocytic anemia (Primary Dx) Social History Tobacco [...] Reticulocytes Absolute 0.055 0.026 - 0.095 X10*6/uL [facility] Immature Retic Fraction 15.4 3.0 - 15.9 % [facility] Retic HGB Equivalent 32.0 30.0 - 35.0 pg [facility] Reticulocyte Percent 1.3 0.5 - 1.8 % [facility] Blood Venous blood specimen / Unknown 01/13/2025 10:32 AM EDT 01/13/2025 2:04 PM EDT us Amisha Sanchez MD LAB BLOOD ORDERABLES Final Res ult [facility] [address] [place] [address] [phone] documented in this encounter Visit Diagnoses Diagnosis Normocytic anemia- Primary Unspecified anemia documented in this encounter Additional Health Concerns Assessment Noted Time PHQ-9 Depression Total Score: 2 08/08/20 10:07 AM EDT documented as of this encounter Care Teams Computer Security Manager Relationship Specialty Start Date End Date Erin Wilcox MD [address] [place] [address] PCP - General Family Medicine 07/31/22 documented as of this encounter
--- OUTSIDE RECORDS SUMMARY | 2025-03-01 12:12 | XMS_ITS | Encounter Summary ---
Author Organization [employer] [facility] Address [address] [facility] [address] [place] [address] Care Team Providers Care Adjuster Leader Name Role Phone Erin Wilcox MD Primary Care Provider [phone] Encounter Details Date Type Department Care Team (Latest Contact Info) Description 08/07/2020 Abstract [facility] CONVERSIONS Dental, Provider, DDS Social History [...] on filedocumented in this encounter Care Teams Adjuster Leader Relationship Specialty Start Date End Date Erin Wilcox MD [address] [place] [address] PCP - General Family Medicine 07/31/22 documented as of this encounter
--- OUTSIDE RECORDS SUMMARY | 2025-03-01 12:12 | XMS_ITS | Encounter Summary ---
Author Organization [employer] [facility] Address [address] [place] [address] Care Team Providers Care Machine Molder Squeeze Name Role Phone Erin Wilcox MD Primary Care Provider [phone] Encounter Details Date Type Department Care Team (Latest Contact Info) Description 09/07/2019 Abstract [facility] CONVERSIONS Dental, Provider, DDS Social History [...] on filedocumented in this encounter Care Teams Machine Molder Squeeze Relationship Specialty Start Date End Date Erin Wilcox MD [address] [place] [address] PCP - General Family Medicine 07/31/22 documented as of this encounter
== END 2025-03-01 12:17 | disposition home or self-care (01) ==
LOC: HO.HOS 10:56
PROVIDERS: PCP Internal Medicine
DX: M20.012 Mallet finger of left finger(s) (principal)
CPT/HCPCS: 29085; 99024

== ENCOUNTER → 2025-03-01 10:55 | Outpatient (BNVA) | payer MEDICAID, SELFPAY | PROVIDERS: PCP Internal Medicine | DX: Z47.89 Encounter for other orthopedic aftercare (principal); M20.012 Mallet finger of left finger(s); Z98.890 Other specified postprocedural states | CPT/HCPCS: 29085; 99212 ==

== ENCOUNTER 2025-03-29 01:42 | Emergency (ER) | payer MEDICAID, SELFPAY ==
[2025-03-29 01:47] VITALS: BP 103/65; PULSE 105; RESP 16; TEMP 36.8; O2SAT 97; BMI 22.1
[2025-03-29] MEDS: Lidocaine HCl 1%/Epi 1:100,000 10 ML VIAL INFILTRATI (02:35)
--- NOTE | 2025-03-29 03:37 | ED_ITS ---
HPI - General Adult General Chief complaint: Wound/Laceration Stated complaint: laceration on left eyebrow possible stitches Time Seen by Provider: 03/29/25 02:28 Source: patient Limitations: no limitations History of Present Illness ED Provider: Francisca Rodriguez PA-C HPI narrative: 40-year-old female presents with left brow laceration. Patient states she accidentally struck her head on a hand truck. Tetanus up-to-date. No loss consciousness, the patient is not on a blood thinner. Related Data Home Medications ?Medication ?Instructions ?Recorded ?Confirmed multivitamin 1 tab PO DAILY 11/17/24 02/17/25 rosuvastatin 10 mg tablet 10 mg PO QAM 11/17/24 02/17/25 Previous Rx's ?Medication ?Instructions ?Recorded hydrocodone 5 mg-acetaminophen 325 1 tab PO Q6H PRN pain #3 tabs 02/17/25 mg tablet Allergies Allergy/AdvReac Type Severity Reaction Status Date / Time No Known Allergies Allergy Mild NONE Verified 03/29/25 01:48 Review of Systems Review of Systems: Yes all other systems are reviewed and are negative Constitutional: Constitutional: Denies fatigue, Denies fever(s) and Denies headache(s) ENT: Denies dizziness and Denies headache(s) Gastrointestinal: Gastrointestinal: Denies nausea and Denies vomiting Neurologic: Denies dizziness and Denies headache(s) Endocrine: Endocrine: Denies fatigue PMFSH Past Medical History Attestation statement: The following information was validated with the patient. 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 Physical Exam ED Vital Signs: Vital Signs - 24 hr 03/29/25 01:47 Temperature 98.2 F Pulse Rate 105 H Respiratory Rate 16 Blood Pressure 103/65 Pulse Oximetry 97 Oxygen Delivery Method Room Air BMI result Body Mass Index 22.1 Const Other: Alert well-appearing Orientation/consciousness: patient oriented x3 Eyes Other: 4 cm laceration within left brow, deep to subcu tissue not bleeding Resp Effort & Inspection: normal respiratory effort Cardio Other: Normal peripheral perfusion Skin Other: Warm dry no rash Neuro General: patient oriented x3, gait normal, no focal motor deficits and CN's II- XI intact bilaterally Psych Other: Cooperative Medications Administered Discontinued Medications Generic Name Dose Route Start Last Admin Trade Name Freq PRN Reason Stop Dose Admin Lidocaine/Epinephrine 10 ml 03/29/25 02:28 03/29/25 02:35 Lidocaine Hcl 1%/Epi 1:100,000 10 Ml Vial INFILTRATI 03/29/25 02:29 10 ml ONCE ONE Administration Procedures Laceration Laceration 1: Site: face Side (If applicable): left Size (cm): 4 Description: linear Depth: simple, single layer Local Anesthetic: lidocaine 1% and with epi Amount of anesthesia used (mL): 3 Pre-repair: irrigated extensively Skin layer closed with: vicryl Size (cm): 5-0 Number of sutures: 8 Technique: simple, interrupted Medical Decision Making Medical Decision Making MDM Narrative: 40-year-old female presents with left brow laceration. Patient states she accidentally struck her head on a hand truck. Tetanus up-to-date. No loss consciousness, the patient is not on a blood thinner. No chronic issues History: Per patient I have considered the following differential diagnoses: Laceration, abrasion, excoriation, contusion Plan: The laceration will require simple repair, tetanus up-to-date no indication for imaging Discharge Plan Discharge Clinical Impression: Laceration of eyebrow, left Patient Disposition: Home, Self-Care Instructions: Care For Your Absorbable Stitches (ED), Facial Laceration (ED) Additional Instructions: 8 stitches were used to repair the laceration. See home care instructions. They will follow on their own, within 7-10 days. Watch for signs of infection which would include redness, swelling, warmth, discharge from the site or fever. If you develop any of these symptoms, seek medical attention. Otherwise follow up with primary care as needed. Prescriptions: No Action hydrocodone-acetaminophen 5-325 mg tablet 1 tab PO Q6H PRN (Reason: pain) Qty: 3 0RF Rx Instructions: Partial Fill upon patient request. rosuvastatin 10 mg tablet 10 mg PO QAM multivitamin Tablet 1 tab PO DAILY Stand Alone Forms: Work/School Release Print Language: [place]
[2025-03-29 05:01] VITALS: BP 103/65; PULSE 105; RESP 16; TEMP 36.8; O2SAT 97
== END 2025-03-29 05:01 | disposition home or self-care (01) ==
PROVIDERS: Emergency Provider Emergency Medicine; PCP Internal Medicine
DX: S01.112A Laceration without foreign body of left eyelid and periocular area, initial encounter (principal); W22.8XXA Striking against or struck by other objects, initial encounter; Y93.9 Activity, unspecified; Y92.9 Unspecified place or not applicable; Y99.9 Unspecified external cause status
CPT/HCPCS: 12013; 99284; J2004